=== PATIENT | male | born 1985 | race Hispanic/Latino ===

== ENCOUNTER 2020-06-18 12:54 | Inpatient (IN) | payer OTHER ==
[2020-06-18] MEDS ORDERED: ROCURONIUM 50 MG/5 ML INJ IV ONE (13:02)
[2020-06-18] MEDS ORDERED: KETAMINE 500 MG/5 ML VIAL MDV ONE (13:03)
[2020-06-18] MEDS ORDERED: SODIUM CHLORIDE 0.9% 1000 ML 1,000 ML IV ONE ×2 (13:11→15:48)
[2020-06-18] MEDS ORDERED: MINERAL OIL/PETROLATUM, WHITE OPHTH OINT 3.5 GM OU PRN (13:12)
[2020-06-18] MEDS ORDERED: LIP THERAPY VASELINE TP PRN (13:12)
--- NOTE | 2020-06-18 13:18 | Emergency Department Report ---
HPI - General Chief Complaint: Altered Mental Status Time Seen by Provider: 06/18/20 13:11 - HPI HPI: This is a 34-year-old male presents to the emergency department via EMS unresponsive with possible drug overdose. [place]. There was an acquaintance of the patient that was there initially when EMS arrived and said that the patient has history of IV heroin use. Patient is seen having some abrasions to his head and face and the acquaintance said that he had rolled down the hill. EMS says that there also many unidentified pills that were laying around but it is unknown whether the patient had taken these medications. At the time of my examination the patient is unresponsive to verbal, tactile or painful stimuli. He received 4 mg of Narcan in route with EMS and they say that the patient had 45 seconds of seizure-like activity shortly after the Narcan but otherwise did not become more arousable. ED Past Medical Hx - Past Medical History Hx Hypertension: No Hx CVA: No Hx Heart Attack/AMI: No Hx Congestive Heart Failure: No Hx Diabetes: No Hx Deep Vein Thrombosis: No Hx Pulmonary Embolism: No Hx GERD: No Hx Liver Disease: No Hx Renal Disease: No Hx Sickle Cell Disease: No Hx Arthritis: No Hx Headaches / Migraines: No Hx Seizures: No Hx Kidney Stones: No Hx Psychiatric Treatment: Yes ([place] - 10/2013) Hx Asthma: No Hx COPD: No Hx Tuberculosis: No Hx Dementia: No Hx HIV: No Additional medical history: Methamphetamine abuse - Surgical History Hx Coronary Stent: No Hx Open Heart Surgery: No Hx Pacemaker: No Hx Internal Defibrillator: No Hx Cholecystectomy: No Hx Appendectomy: No Hx Breast Surgery: No - Social History Smoking Status: Current Every Day Smoker - Medications Home Medications: Home Medications Medication Instructions Recorded Confirmed Last Taken Type Azithromycin [Zithromax TAB] 500 mg PO QDAY #3 tablet 10/07/14 Unknown Rx Benzonatate [Tessalon Perles] 100 mg PO Q8HR #30 capsule 10/07/14 Unknown Rx Ondansetron [Zofran Odt] 4 mg PO Q6H #7 tab.rapdis 10/07/14 Unknown Rx Prednisone [Prednisone 10 mg 10 mg PO .TAPER #1 tab.ds.pk 10/07/14 Unknown Rx (6-Day Pack, 21 Tabs)] Promethazine /Codeine 5 ml PO Q6H PRN #120 ml 10/07/14 Unknown Rx [Phenergan/Codeine 6.25-10 mg/5 ml] Ondansetron [Zofran Odt] 4 mg PO Q8H PRN #10 tab.rapdis 12/10/15 Unknown Rx ED Review of Systems ROS: Stated complaint: OVERDOSE/UNRESPONSIVE Other details as noted in HPI Comment: Unobtainable due to pts medical conditions Physical Exam - Physical Exam Vital Signs: Vital Signs 06/18/20 13:00 Pulse Rate 107 H Respiratory 12 Rate Blood Pressure 159/107 [Right] O2 Sat by Pulse 86 Oximetry Physical Exam: GENERAL: Patient is ill-appearing and unresponsive. HENT: Normocephalic. Patient has moist mucous membranes. EYES:Pupils equal reactive to light bilaterally. NECK: Supple. Trachea is midline. CHEST/LUNGS: Coarse breath sounds. Shallow snoring respirations. HEART/CARDIOVASCULAR: Regular. There is no tachycardia. There is no murmur. ABDOMEN: Abdomen is soft, nontender. Patient has normal bowel sounds. There is no abdominal distention. SKIN: Skin is warm and dry. There are some patches of abrasions to the right forehead and right upper cheek. NEURO: The patient is unresponsive to verbal, tactile or painful stimuli. No gag reflex. MUSCULOSKELETAL: There is no obvious deformity. ED Course Vital Signs 06/18/20 13:00 Pulse Rate 107 H Respiratory 12 Rate Blood Pressure 159/107 [Right] O2 Sat by Pulse 86 Oximetry - Reevaluation(s) Reevaluation #1: 06/18/20 17:04 Lab Results 06/18/20 06/18/20 06/18/20 Range/Units 13:38 13:38 14:36 WBC (4.5-11.0) K/mm3 RBC (3.65-5.03) M/mm3 Hgb (11.8-15.2) gm/dl Hct (35.5-45.6) % MCV (84-94) fl MCH (28-32) pg MCHC (32-34) % RDW (13.2-15.2) % Plt Count (140-440) K/mm3 Lymph % (Auto) (13.4-35.0) % [place] % (Auto) (0.0-7.3) % Eos % (Auto) (0.0-4.3) % Baso % (Auto) (0.0-1.8) % Lymph # (1.2-5.4) K/mm3 [place] # (0.0-0.8) K/mm3 Eos # (0.0-0.4) K/mm3 Baso # (0.0-0.1) K/mm3 Seg Neutrophils % (40.0-70.0) % Seg Neutrophils # (1.8-7.7) K/mm3 PT (12.2-14.9) Sec. INR (0.87-1.13) APTT (24.2-36.6) Sec. ABG pH (7.350-7.450) pH Units ABG pCO2 mm Hg ABG pO2 (80.0-90.0) mm Hg ABG HCO3 (20.0-26.0) mmol/L ABG O2 Saturation (95.0-99.0) % ABG O2 Content (0.0-44) ABG Base Excess (-2.0-3.0) mmol/L ABG Hemoglobin (14.0-18.0) gm/dl ABG Carboxyhemoglobin (0.0-5.0) % ABG Methemoglobin (0.0-1.5) % Oxyhemoglobin (95.0-99.0) % FiO2 % Sodium 138 (137-145) mmol/L Potassium 4.6 (3.6-5.0) mmol/L Chloride 99.5 (98-107) mmol/L Carbon Dioxide 16 L (22-30) mmol/L Anion Gap 27 mmol/L BUN 18 (9-20) mg/dL Creatinine 0.8 (0.8-1.3) mg/dL Estimated GFR > 60 ml/min BUN/Creatinine Ratio 23 % Glucose 114 H (75-100) mg/dL Lactic Acid (0.7-2.0) mmol/L Calcium 9.5 (8.4-10.2) mg/dL Total Bilirubin 0.40 (0.1-1.2) mg/dL AST 46 H (5-40) units/L ALT 72 H (7-56) units/L Alkaline Phosphatase 120 (35-129) units/L Ammonia (25-60) umol/L Total Creatine Kinase 255 H (55-170) units/L Troponin T 0.155 H* (0.00-0.029) ng/mL Total Protein 8.1 (6.3-8.2) g/dL Albumin 3.5 L (3.9-5) g/dL Albumin/Globulin Ratio 0.8 % Triglycerides 160 H (2-149) mg/dL Cholesterol 146 (50-199) mg/dL LDL Cholesterol Direct 87 (50-130) mg/dL HDL Cholesterol 49 (40-59) mg/dL Cholesterol/HDL Ratio 2.97 % TSH (0.270-4.200) mlU/mL Urine Color Yellow (Yellow) Urine Turbidity Clear (Clear) Urine pH 5.0 (5.0-7.0) Ur Specific [place] 1.024 (1.003-1.030) Urine Protein <15 mg/dl (Negative) mg/dL Urine Glucose (UA) Neg (Negative) mg/dL Urine Ketones Tr (Negative) mg/dL Urine Blood Sm (Negative) Urine Nitrite Neg (Negative) Urine Bilirubin Neg (Negative) Urine Urobilinogen 2.0 (<2.0) mg/dL Ur Leukocyte Esterase Neg (Negative) Urine WBC (Auto) 3.0 (0.0-6.0) /HPF Urine RBC (Auto) 4.0 (0.0-6.0) /HPF Urine Bacteria (Auto) 2+ (Negative) /HPF Salicylates (2.8-20.0) mg/dL Urine Opiates Screen Presumptive positive Urine Methadone Screen Presumptive negative Acetaminophen (10.0-30.0) ug/mL Ur Barbiturates Screen Presumptive negative Ur Phencyclidine Scrn Presumptive negative Ur Amphetamines Screen Presumptive positive U Benzodiazepines Scrn Presumptive negative Urine Cocaine Screen Presumptive positive U Marijuana (THC) Screen Presumptive positive Drugs of Abuse Note Disclamer Plasma/Serum Alcohol (0-0.07) % 06/18/20 06/18/20 06/18/20 Range/Units 14:36 14:36 14:36 WBC (4.5-11.0) K/mm3 RBC (3.65-5.03) M/mm3 Hgb (11.8-15.2) gm/dl Hct (35.5-45.6) % MCV (84-94) fl MCH (28-32) pg MCHC (32-34) % RDW (13.2-15.2) % Plt Count (140-440) K/mm3 Lymph % (Auto) (13.4-35.0) % [place] % (Auto) (0.0-7.3) % Eos % (Auto) (0.0-4.3) % Baso % (Auto) (0.0-1.8) % Lymph # (1.2-5.4) K/mm3 [place] # (0.0-0.8) K/mm3 Eos # (0.0-0.4) K/mm3 Baso # (0.0-0.1) K/mm3 Seg Neutrophils % (40.0-70.0) % Seg Neutrophils # (1.8-7.7) K/mm3 PT (12.2-14.9) Sec. INR (0.87-1.13) APTT (24.2-36.6) Sec. ABG pH (7.350-7.450) pH Units ABG pCO2 mm Hg ABG pO2 (80.0-90.0) mm Hg ABG HCO3 (20.0-26.0) mmol/L ABG O2 Saturation (95.0-99.0) % ABG O2 Content (0.0-44) ABG Base Excess (-2.0-3.0) mmol/L ABG Hemoglobin (14.0-18.0) gm/dl ABG Carboxyhemoglobin (0.0-5.0) % ABG Methemoglobin (0.0-1.5) % Oxyhemoglobin (95.0-99.0) % FiO2 % Sodium (137-145) mmol/L Potassium (3.6-5.0) mmol/L Chloride (98-107) mmol/L Carbon Dioxide (22-30) mmol/L Anion Gap mmol/L BUN (9-20) mg/dL Creatinine (0.8-1.3) mg/dL Estimated GFR ml/min BUN/Creatinine Ratio % Glucose (75-100) mg/dL Lactic Acid (0.7-2.0) mmol/L Calcium (8.4-10.2) mg/dL Total Bilirubin (0.1-1.2) mg/dL AST (5-40) units/L ALT (7-56) units/L Alkaline Phosphatase (35-129) units/L Ammonia (25-60) umol/L Total Creatine Kinase (55-170) units/L Troponin T (0.00-0.029) ng/mL Total Protein (6.3-8.2) g/dL Albumin (3.9-5) g/dL Albumin/Globulin Ratio % Triglycerides (2-149) mg/dL Cholesterol (50-199) mg/dL LDL Cholesterol Direct (50-130) mg/dL HDL Cholesterol (40-59) mg/dL Cholesterol/HDL Ratio % TSH 0.743 (0.270-4.200) mlU/mL Urine Color (Yellow) Urine Turbidity (Clear) Urine pH (5.0-7.0) Ur Specific [place] (1.003-1.030) Urine Protein (Negative) mg/dL Urine Glucose (UA) (Negative) mg/dL Urine Ketones (Negative) mg/dL Urine Blood (Negative) Urine Nitrite (Negative) Urine Bilirubin (Negative) Urine Urobilinogen (<2.0) mg/dL Ur Leukocyte Esterase (Negative) Urine WBC (Auto) (0.0-6.0) /HPF Urine RBC (Auto) (0.0-6.0) /HPF Urine Bacteria (Auto) (Negative) /HPF Salicylates < 0.3 L (2.8-20.0) mg/dL Urine Opiates Screen Urine Methadone Screen Acetaminophen < 5.0 L (10.0-30.0) ug/mL Ur Barbiturates Screen Ur Phencyclidine Scrn Ur Amphetamines Screen U Benzodiazepines Scrn Urine Cocaine Screen U Marijuana (THC) Screen Drugs of Abuse Note Plasma/Serum Alcohol (0-0.07) % 06/18/20 06/18/20 06/18/20 Range/Units 14:36 15:04 15:04 WBC 17.6 H (4.5-11.0) K/mm3 RBC 5.15 H (3.65-5.03) M/mm3 Hgb 14.2 (11.8-15.2) gm/dl Hct 43.0 (35.5-45.6) % MCV 84 (84-94) fl MCH 28 (28-32) pg MCHC 33 (32-34) % RDW 15.6 H (13.2-15.2) % Plt Count 427 (140-440) K/mm3 Lymph % (Auto) 9.3 L (13.4-35.0) % [place] % (Auto) 5.7 (0.0-7.3) % Eos % (Auto) 0.1 (0.0-4.3) % Baso % (Auto) 0.5 (0.0-1.8) % Lymph # 1.6 (1.2-5.4) K/mm3 [place] # 1.0 H (0.0-0.8) K/mm3 Eos # 0.0 (0.0-0.4) K/mm3 Baso # 0.1 (0.0-0.1) K/mm3 Seg Neutrophils % 84.4 H (40.0-70.0) % Seg Neutrophils # 14.9 H (1.8-7.7) K/mm3 PT 12.6 (12.2-14.9) Sec. INR 0.93 (0.87-1.13) APTT 32.9 (24.2-36.6) Sec. ABG pH (7.350-7.450) pH Units ABG pCO2 mm Hg ABG pO2 (80.0-90.0) mm Hg ABG HCO3 (20.0-26.0) mmol/L ABG O2 Saturation (95.0-99.0) % ABG O2 Content (0.0-44) ABG Base Excess (-2.0-3.0) mmol/L ABG Hemoglobin (14.0-18.0) gm/dl ABG Carboxyhemoglobin (0.0-5.0) % ABG Methemoglobin (0.0-1.5) % Oxyhemoglobin (95.0-99.0) % FiO2 % Sodium (137-145) mmol/L Potassium (3.6-5.0) mmol/L Chloride (98-107) mmol/L Carbon Dioxide (22-30) mmol/L Anion Gap mmol/L BUN (9-20) mg/dL Creatinine (0.8-1.3) mg/dL Estimated GFR ml/min BUN/Creatinine Ratio % Glucose (75-100) mg/dL Lactic Acid (0.7-2.0) mmol/L Calcium (8.4-10.2) mg/dL Total Bilirubin (0.1-1.2) mg/dL AST (5-40) units/L ALT (7-56) units/L Alkaline Phosphatase (35-129) units/L Ammonia (25-60) umol/L Total Creatine Kinase (55-170) units/L Troponin T (0.00-0.029) ng/mL Total Protein (6.3-8.2) g/dL Albumin (3.9-5) g/dL Albumin/Globulin Ratio % Triglycerides (2-149) mg/dL Cholesterol (50-199) mg/dL LDL Cholesterol Direct (50-130) mg/dL HDL Cholesterol (40-59) mg/dL Cholesterol/HDL Ratio % TSH (0.270-4.200) mlU/mL Urine Color (Yellow) Urine Turbidity (Clear) Urine pH (5.0-7.0) Ur Specific [place] (1.003-1.030) Urine Protein (Negative) mg/dL Urine Glucose (UA) (Negative) mg/dL Urine Ketones (Negative) mg/dL Urine Blood (Negative) Urine Nitrite (Negative) Urine Bilirubin (Negative) Urine Urobilinogen (<2.0) mg/dL Ur Leukocyte Esterase (Negative) Urine WBC (Auto) (0.0-6.0) /HPF Urine RBC (Auto) (0.0-6.0) /HPF Urine Bacteria (Auto) (Negative) /HPF Salicylates (2.8-20.0) mg/dL Urine Opiates Screen Urine Methadone Screen Acetaminophen (10.0-30.0) ug/mL Ur Barbiturates Screen Ur Phencyclidine Scrn Ur Amphetamines Screen U Benzodiazepines Scrn Urine Cocaine Screen U Marijuana (THC) Screen Drugs of Abuse Note Plasma/Serum Alcohol < 0.01 (0-0.07) % 06/18/20 06/18/20 06/18/20 Range/Units 15:04 15:04 16:20 WBC (4.5-11.0) K/mm3 RBC (3.65-5.03) M/mm3 Hgb (11.8-15.2) gm/dl Hct (35.5-45.6) % MCV (84-94) fl MCH (28-32) pg MCHC (32-34) % RDW (13.2-15.2) % Plt Count (140-440) K/mm3 Lymph % (Auto) (13.4-35.0) % [place] % (Auto) (0.0-7.3) % Eos % (Auto) (0.0-4.3) % Baso % (Auto) (0.0-1.8) % Lymph # (1.2-5.4) K/mm3 [place] # (0.0-0.8) K/mm3 Eos # (0.0-0.4) K/mm3 Baso # (0.0-0.1) K/mm3 Seg Neutrophils % (40.0-70.0) % Seg Neutrophils # (1.8-7.7) K/mm3 PT (12.2-14.9) Sec. INR (0.87-1.13) APTT (24.2-36.6) Sec. ABG pH 7.383 (7.350-7.450) pH Units ABG pCO2 44.1 mm Hg ABG pO2 200.0 H (80.0-90.0) mm Hg ABG HCO3 25.7 (20.0-26.0) mmol/L ABG O2 Saturation 99.2 H (95.0-99.0) % ABG O2 Content 19.4 (0.0-44) ABG Base Excess 0.3 (-2.0-3.0) mmol/L ABG Hemoglobin 13.9 L (14.0-18.0) gm/dl ABG Carboxyhemoglobin 1.1 (0.0-5.0) % ABG Methemoglobin 0.5 (0.0-1.5) % Oxyhemoglobin 97.6 (95.0-99.0) % FiO2 100 % Sodium (137-145) mmol/L Potassium (3.6-5.0) mmol/L Chloride (98-107) mmol/L Carbon Dioxide (22-30) mmol/L Anion Gap mmol/L BUN (9-20) mg/dL Creatinine (0.8-1.3) mg/dL Estimated GFR ml/min BUN/Creatinine Ratio % Glucose (75-100) mg/dL Lactic Acid 4.40 H* (0.7-2.0) mmol/L Calcium (8.4-10.2) mg/dL Total Bilirubin (0.1-1.2) mg/dL AST (5-40) units/L ALT (7-56) units/L Alkaline Phosphatase (35-129) units/L Ammonia 64.0 H (25-60) umol/L Total Creatine Kinase (55-170) units/L Troponin T (0.00-0.029) ng/mL Total Protein (6.3-8.2) g/dL Albumin (3.9-5) g/dL Albumin/Globulin Ratio % Triglycerides (2-149) mg/dL Cholesterol (50-199) mg/dL LDL Cholesterol Direct (50-130) mg/dL HDL Cholesterol (40-59) mg/dL Cholesterol/HDL Ratio % TSH (0.270-4.200) mlU/mL Urine Color (Yellow) Urine Turbidity (Clear) Urine pH (5.0-7.0) Ur Specific [place] (1.003-1.030) Urine Protein (Negative) mg/dL Urine Glucose (UA) (Negative) mg/dL Urine Ketones (Negative) mg/dL Urine Blood (Negative) Urine Nitrite (Negative) Urine Bilirubin (Negative) Urine Urobilinogen (<2.0) mg/dL Ur Leukocyte Esterase (Negative) Urine WBC (Auto) (0.0-6.0) /HPF Urine RBC (Auto) (0.0-6.0) /HPF Urine Bacteria (Auto) (Negative) /HPF Salicylates (2.8-20.0) mg/dL Urine Opiates Screen Urine Methadone Screen Acetaminophen (10.0-30.0) ug/mL Ur Barbiturates Screen Ur Phencyclidine Scrn Ur Amphetamines Screen U Benzodiazepines Scrn Urine Cocaine Screen U Marijuana (THC) Screen Drugs of Abuse Note Plasma/Serum Alcohol (0-0.07) % - Consultations Consultation #1: 06/18/20 16:44 I spoke with the flight engineer instructor on-call for [facility] cardiology, Dr. Valderrama, regarding the elevated troponin with polysubstance abuse. He agrees with the plan for heparin and recommends aspirin and a statin. He recommends to avoid any beta-dorian secondary to the cocaine use. - ABG Interpretation Ph: 7.383 PCO2: 44 PO2: 200 Bicarbonate: 25 Interpretation: normal - Intubation Time Out Performed: Yes Sedative: Ketamine Mg Given: 50 Paralytic: Rocuronium Mg Given: 50 Laryngoscope: other ([place] scope) Size: 4 ET Tube Size: 7.5 Tube Secured Depth (cm): 24 Tube Secured Location: teeth Tube Placement Confirmation: visualized tube passing t, equal breath sounds bilat, no breath sounds over epi, confirmation by capnometr Patient Tolerated Procedure: well Intubation Complications: none ED Medical Decision Making - Lab Data Result diagrams: 06/18/20 15:04 06/18/20 14:36 - EKG Data -: EKG Interpreted by Me EKG shows normal: sinus rhythm, axis, intervals, QRS complexes (Q waves to the septal leads), ST-T waves Rate: tachycardia (109 bpm) - EKG Data When compared to previous EKG there are: previous EKG unavailable Interpretation: other (Sinus tachycardia at 109 bpm, normal axis, normal intervals, Q waves to the septal leads) - Radiology Data Radiology results: report reviewed, image reviewed interpreted by me: Chest x-ray does not show any acute process. There are no pleural effusions, obvious pneumonia and there is no pneumothorax. No significant cardiomegaly. Endotracheal tube is in appropriate position. CT head/brain wo con INDICATION: Altered mental status. TECHNIQUE: Routine CT head without contrast. All CT scans at this location are performed using CT dose reduction for ALARA by means of automated exposure control. COMPARISON: None. FINDINGS: BRAIN / INTRACRANIAL CONTENTS: No acute hemorrhage, mass effect, midline shift, or hydrocephalus. No appreciable acute large territorial or lacunar infarct. No chronic infarct or focal atrophy. Normal brain volume and ventricular/sulcal size for age. ORBITS: No significant abnormality of visualized orbits. SINUSES / MASTOIDS: There is a small amount of fluid in left maxillary sinus with a possible left anterior maxillary sinus wall fracture. ADDITIONAL FINDINGS: None. IMPRESSION: 1. No acute intracranial abnormality. 2. Possible left maxillary sinus fracture. Further evaluation with maxillofacial CT recommended. CT CERVICAL SPINE WITHOUT CONTRAST INDICATION: trauma, unresponsive. TECHNIQUE: Axial CT images of the spine were obtained. Sagittal and coronal reformatted images were produced. All CT scans at this location are performed using CT dose reduction for ALARA by means of automated exposure control. COMPARISON: None available. FINDINGS: ACUTE FRACTURE(S) OR SUBLUXATION: None. SPINAL DEGENERATIVE CHANGES: There is moderate degenerative disc disease at C6-7 with disc height loss and reactive endplate osteophyte formation resulting in mild bilateral neural foraminal narrowing at that level. PARASPINAL SOFT TISSUES: No soft tissue swelling or other acute abnormalities. ADDITIONAL FINDINGS: No significant additional findings. IMPRESSION: 1. No acute fracture or subluxation in the spine in neutral position. - Medical Decision Making This [place] with obvious signs of illicit drug use. No response to the Narcan given by EMS other than a questionable 45-second seizure, but there is no seizure-like activity upon arrival to the emergency department. Patient does have snoring bradypneic respirations and no gag reflex. For this reason patient was intubated. Chest x-ray does not show any pneumonia, pleural effusions, pneumothorax, or any other acute process. CT scan of the head without contrast did not show any bleed, ischemia, skull fracture, but there was a questionable read of a maxillary sinus fracture. CT of the cervical spine did not show any fracture, subluxation, or any acute process. Patient's labs shows a lactic acidosis, leukocytosis of 17,000, elevated troponin of 0.15 and a urine drug screen positive for opiates, methamphetamines, cocaine. Cardiology contacted and consulted and the patient was started on a heparin drip. He will be admitted to the ICU for further evaluation and treatment was accepted for admission by the hospitalist, Dr. Francisco. Critical Care Time: Yes Critical care time in (mins) excluding proc time.: 45 Critical care attestation.: If time is entered above; I have spent that time in minutes in the direct care of this critically ill patient, excluding procedure time. Critical care time was spent on this patient in doing his initial evaluation, multiple re- evaluations, ordering and interpretation of labs and imaging, discussion with the cardiology and hospitalist services. This does not include the time spent doing the intubation. Critical Care Time: 45 minutes ED Disposition Clinical Impression: Unresponsive state, Polysubstance abuse, Elevated troponin, Lactic acidosis Acute respiratory failure Qualifiers: Respiratory failure complication: unspecified whether with hypoxia or hypercapnia Qualified Code(s): J96.00 - Acute respiratory failure, unspecified whether with hypoxia or hypercapnia Disposition: OP ADMIT IP TO THIS HOSP Is pt being admited?: Yes Condition: Serious Time of Disposition: 16:41
--- NOTE | 2020-06-18 13:53 | XRay Report ---
CHEST 1 VIEW INDICATION / CLINICAL INFORMATION: ETT placement. COMPARISON: None available. FINDINGS: SUPPORT DEVICES: Endotracheal tube HEART / MEDIASTINUM: No significant abnormality. LUNGS / PLEURA: No significant pulmonary or pleural abnormality. No pneumothorax. ADDITIONAL FINDINGS: No significant additional findings. IMPRESSION: Endotracheal tube is present and appears to be in good position. No acute pulmonary or pleural abnorm ality Signer Name: Gunnar Meier MD FACTal Signed: 06/18/2020 1:49 PM Workstation Name: [email or web address]
[2020-06-18 13:57] LABS: Amphetamine Screen,Urine PRESUMPTIVE POSITIVE; Benzodiazepines Screen,Urine PRESUMPTIVE NEGATIVE; Cannabinoid Screen,Urine PRESUMPTIVE POSITIVE; Cocaine Screen,Urine PRESUMPTIVE POSITIVE; Methadone Screen,Urine PRESUMPTIVE NEGATIVE; Opiate Screen,Urine PRESUMPTIVE POSITIVE
[2020-06-18 14:00] LABS: Bacteria,Urine 2+ /HPF (Negative); Bilirubin,Urine NEG (Negative); Blood,Urine SM (Negative); Color,Urine Yellow (Yellow); Protein,Urine <15 mg/dL mg/dL (Negative)
[2020-06-18 15:30] LABS: Basophils # (Auto) 0.1 K/mm3 (0.0-0.1); Basophils % (Auto) 0.5 % (0.0-1.8); Eosinophils % (Auto) 0.1 % (0.0-4.3); Hemoglobin 14.2 gm/dl (11.8-15.2); Lymphocytes # (Auto) 1.6 K/mm3 (1.2-5.4); Lymphocytes % (Auto) 9.3 % (13.4-35.0); Mean Corpuscular HGB Conc 33 % (32-34); Mean Corpuscular Volume 84 fl (84-94); Monocytes % (Auto) 5.7 % (0.0-7.3); Platelet Count 427 K/mm3 (140-440); Red Blood Count 5.15 M/mm3 (3.65-5.03); Red Cell Distribution Width 15.6 % (13.2-15.2)
[2020-06-18 15:31] LABS: Alanine Aminotransferase 72 units/L (7-56); Albumin 3.5 g/dL (3.9-5); BUN/Creatinine Ratio 23; Blood Urea Nitrogen 18 mg/dL (9-20); Calcium 9.5 mg/dL (8.4-10.2); Hemolysis Index 62
[2020-06-18 15:40] LABS: INR 0.93 (0.87-1.13)
[2020-06-18 15:41] LABS: Partial Thromboplastin Time 32.9 Sec. (24.2-36.6)
[2020-06-18 15:50] LABS: Chol/HDL Ratio 2.97 %; HDL Cholesterol 49 mg/dL (40-59); LDL Cholesterol,Direct 87 mg/dL (50-130)
--- NOTE | 2020-06-18 16:31 | Cat Scan Report ---
CT CERVICAL SPINE WITHOUT CONTRAST INDICATION: trauma, unresponsive. TECHNIQUE: Axial CT images of the spine were obtained. Sagittal and coronal reformatted images were produced. Al l CT scans at this location are performed using CT dose reduction for ALARA by means of automated exp osure control. COMPARISON: None available. FINDINGS: ACUTE FRACTURE(S) OR SUBLUXATION: None. SPINAL DEGENERATIVE CHANGES: There is moderate degenerative disc disease at C6-7 with disc height los s and reactive endplate osteophyte formation resulting in mild bilateral neural foraminal narrowing a t that level. PARASPINAL SOFT TISSUES: No soft tissue swelling or other acute abnormalities. ADDITIONAL FINDINGS: No significant additional findings. IMPRESSION: 1. No acute fracture or subluxation in the spine in neutral position. Signer Name: Brenden Rashid MD Signed: 06/18/2020 4:27 PM Workstation Name: [id number]
--- NOTE | 2020-06-18 16:35 | Cat Scan Report ---
CT head/brain wo con INDICATION: Altered mental status. TECHNIQUE: Routine CT head without contrast. All CT scans at this location are performed using CT dos e reduction for ALARA by means of automated exposure control. COMPARISON: None. FINDINGS: BRAIN / INTRACRANIAL CONTENTS: No acute hemorrhage, mass effect, midline shift, or hydrocephalus. No appreciable acute large territorial or lacunar infarct. No chronic infarct or focal atrophy. Normal b rain volume and ventricular/sulcal size for age. ORBITS: No significant abnormality of visualized orbits. SINUSES / MASTOIDS: There is a small amount of fluid in left maxillary sinus with a possible left ant erior maxillary sinus wall fracture. ADDITIONAL FINDINGS: None. IMPRESSION: 1. No acute intracranial abnormality. 2. Possible left maxillary sinus fracture. Further evaluation with maxillofacial CT recommended. Signer Name: Brenden Rashid MD Signed: 06/18/2020 4:31 PM Workstation Name: [id number]
[2020-06-18] MEDS ORDERED: ASPIRIN 300 MG RECT SUPP PR ONE (16:43)
[2020-06-18] MEDS ORDERED: HEPARIN 10,000 UNITS/10 ML VIAL IV ONE (16:43)
[2020-06-18] MEDS ORDERED: IBUPROFEN 600 MG TAB PO PRN (16:46)
[2020-06-18] MEDS ORDERED: ALBUTEROL 2.5 MG/3 ML NEBU IH PRN (16:46)
[2020-06-18] MEDS ORDERED: NALOXONE 0.4 MG/1 ML INJ IV PRN (16:49)
--- NOTE | 2020-06-18 16:51 | History and Physical Report ---
History of Present Illness Date of examination: 06/18/20 Date of admission: 06/18/20 Chief complaint: Drug overdose requiring mechanical ventilation History of present illness: Patient is a 34-year-old male with past medical history of drug use prior history in 2013 which was rescinded at the time shortly after presents to the ED via EMS after found unresponsive along tremor tracks and pulmonary studies showing multiple drugs in his system including PCP, cocaine, THC, opioids. According to information or review of records patient had an acquaintance who states that the patient uses drugs. EMS attempted to administer Narcan 4 mg in route and noted about a 45 seconds seizure-like activity which was shortly after the Narcan was given and resolved. Otherwise patient was unarousable and intubated for airway protection. There were also many unidentified pills laying around the patient unknown if the patient had taken those medications. He is currently intubated at the time of my evaluation imaging studies are unremarkable except for CT head which shows a possible left anterior maxillary sinus wall fracture. Laboratory studies shows mild elevated troponin and leukocytosis. Past History Past Medical History: other (Unable to obtain except for known history of drug abuse) Past Surgical History: Other (Unable to obtain due to patient's medical condition) Social history: smoking, prescription drug abuse, IV drug use Family history: no significant family history Medications and Allergies Allergies Allergy/AdvReac Type Severity Reaction Status Date / Time No Known Allergies Allergy Verified 06/18/20 13:08 Home Medications Medication Instructions Recorded Confirmed Last Taken Type Azithromycin [Zithromax TAB] 500 mg PO QDAY #3 tablet 10/07/14 Unknown Rx Benzonatate [Tessalon Perles] 100 mg PO Q8HR #30 capsule 10/07/14 Unknown Rx Ondansetron [Zofran Odt] 4 mg PO Q6H #7 tab.rapdis 10/07/14 Unknown Rx Prednisone [Prednisone 10 mg 10 mg PO .TAPER #1 tab.ds.pk 10/07/14 Unknown Rx (6-Day Pack, 21 Tabs)] Promethazine /Codeine 5 ml PO Q6H PRN #120 ml 10/07/14 Unknown Rx [Phenergan/Codeine 6.25-10 mg/5 ml] Ondansetron [Zofran Odt] 4 mg PO Q8H PRN #10 tab.rapdis 12/10/15 Unknown Rx Active Meds: Active Medications Hydrophilic Ointment (Vaseline Lip Therapy) 1 applic TP Q2HR PRN PRN Reason: Dry Lips Propofol (Diprivan 10 Mg/Ml) 1,000 mg in 100 mls @ 1.68 mls/hr IV TITR LILIAN; Protocol Last Admin: 06/18/20 13:43 Dose: 5 mcg/kg/min, 1.68 mls/hr Documented by: Heparin Sodium/Sodium Chloride (Heparin/ 0.45% Nacl-25,000 Unit/500 Ml) 25,000 unit in 500 mls @ 20 mls/hr IV TITRATE LILIAN; Protocol Multi-Ingred Cream/Lotion/Oil/Oint (Artificial Tears Ophth Oint) 1 applic OU Q4HR PRN PRN Reason: Dry Eye(s) Review of Systems ROS unobtainable: due to endotracheal tube Exam - Physical Exam Narrative exam: VITAL SIGNS: Reviewed. GENERAL: The patient appears normally developed, otherwise obtunded nonresponsive multiple abrasions NG tube to the right measures vital signs as documented. HEAD: No signs of head trauma. EYES: Pupils are equal. EARS: Sedated MOUTH: ET tube in NECK: No adenopathy, no JVD. CHEST: Chest with transmitted bronchovesicular sounds with no wheezing or rales CARDIAC: Regular rate and rhythm. S1 and S2, without murmurs, gallops, or rubs. VASCULAR: No Edema. Peripheral pulses normal and equal in all extremities. ABDOMEN: Soft, non tender and non distended. No rebound or guarding, and no masses palpated. Bowel Sounds normal. MUSCULOSKELETAL: Good range of motion of all major joints. Extremities without clubbing, cyanosis or edema. NEUROLOGIC EXAM: Alert and oriented x 3 No focal sensory or strength defic its. Speech normal. Follows commands. PSYCHIATRIC: Mood normal. SKIN: Multiple lesions and abrasion detail exam as documented in skin assessment - Constitutional Vitals: Temp Pulse Resp BP Pulse Ox 98 F 71 23 144/107 99 06/18/20 13:48 06/18/20 15:00 06/18/20 15:00 06/18/20 15:00 06/18/20 15:00 HEART Score - HEART Score Troponin: Troponin T 0.155 ng/mL (0.00-0.029) H* 06/18/20 14:36 Results - Labs CBC & Chem 7: 06/18/20 15:04 06/18/20 14:36 Labs: Laboratory Last Values WBC 17.6 K/mm3 (4.5-11.0) H 06/18/20 15:04 RBC 5.15 M/mm3 (3.65-5.03) H 06/18/20 15:04 Hgb 14.2 gm/dl (11.8-15.2) 06/18/20 15:04 Hct 43.0 % (35.5-45.6) 06/18/20 15:04 MCV 84 fl (84-94) 06/18/20 15:04 MCH 28 pg (28-32) 06/18/20 15:04 MCHC 33 % (32-34) 06/18/20 15:04 RDW 15.6 % (13.2-15.2) H 06/18/20 15:04 Plt Count 427 K/mm3 (140-440) 06/18/20 15:04 Lymph % (Auto) 9.3 % (13.4-35.0) L 06/18/20 15:04 [place] % (Auto) 5.7 % (0.0-7.3) 06/18/20 15:04 Eos % (Auto) 0.1 % (0.0-4.3) 06/18/20 15:04 Baso % (Auto) 0.5 % (0.0-1.8) 06/18/20 15:04 Lymph # 1.6 K/mm3 (1.2-5.4) 06/18/20 15:04 [place] # 1.0 K/mm3 (0.0-0.8) H 06/18/20 15:04 Eos # 0.0 K/mm3 (0.0-0.4) 06/18/20 15:04 Baso # 0.1 K/mm3 (0.0-0.1) 06/18/20 15:04 Seg Neutrophils % 84.4 % (40.0-70.0) H 06/18/20 15:04 Seg Neutrophils # 14.9 K/mm3 (1.8-7.7) H 06/18/20 15:04 PT 12.6 Sec. (12.2-14.9) 06/18/20 15:04 INR 0.93 (0.87-1.13) 06/18/20 15:04 APTT 32.9 Sec. (24.2-36.6) 06/18/20 15:04 Sodium 138 mmol/L (137-145) 06/18/20 14:36 Potassium 4.6 mmol/L (3.6-5.0) 06/18/20 14:36 Chloride 99.5 mmol/L (98-107) 06/18/20 14:36 Carbon Dioxide 16 mmol/L (22-30) L 06/18/20 14:36 Anion Gap 27 mmol/L 06/18/20 14:36 BUN 18 mg/dL (9-20) 06/18/20 14:36 Creatinine 0.8 mg/dL (0.8-1.3) 06/18/20 14:36 Estimated GFR > 60 ml/min 06/18/20 14:36 BUN/Creatinine Ratio 23 % 06/18/20 14:36 Glucose 114 mg/dL (75-100) H 06/18/20 14:36 Lactic Acid 4.40 mmol/L (0.7-2.0) H* 06/18/20 15:04 Calcium 9.5 mg/dL (8.4-10.2) 06/18/20 14:36 Total Bilirubin 0.40 mg/dL (0.1-1.2) 06/18/20 14:36 AST 46 units/L (5-40) H 06/18/20 14:36 ALT 72 units/L (7-56) H 06/18/20 14:36 Alkaline Phosphatase 120 units/L (35-129) 06/18/20 14:36 Ammonia 64.0 umol/L (25-60) H 06/18/20 15:04 Total Creatine Kinase 255 units/L (55-170) H 06/18/20 14:36 Troponin T 0.155 ng/mL (0.00-0.029) H* 06/18/20 14:36 Total Protein 8.1 g/dL (6.3-8.2) 06/18/20 14:36 Albumin 3.5 g/dL (3.9-5) L 06/18/20 14:36 Albumin/Globulin Ratio 0.8 % 06/18/20 14:36 Triglycerides 160 mg/dL (2-149) H 06/18/20 14:36 Cholesterol 146 mg/dL (50-199) 06/18/20 14:36 LDL Cholesterol Direct 87 mg/dL (50-130) 06/18/20 14:36 HDL Cholesterol 49 mg/dL (40-59) 06/18/20 14:36 Cholesterol/HDL Ratio 2.97 % 06/18/20 14:36 TSH 0.743 mlU/mL (0.270-4.200) 06/18/20 14:36 Urine Color Yellow (Yellow) 06/18/20 13:38 Urine Turbidity Clear (Clear) 06/18/20 13:38 Urine pH 5.0 (5.0-7.0) 06/18/20 13:38 Ur Specific [place] 1.024 (1.003-1.030) 06/18/20 13:38 Urine Protein <15 mg/dl mg/dL (Negative) 06/18/20 13:38 Urine Glucose (UA) Neg mg/dL (Negative) 06/18/20 13:38 Urine Ketones Tr mg/dL (Negative) 06/18/20 13:38 Urine Blood Sm (Negative) 06/18/20 13:38 Urine Nitrite Neg (Negative) 06/18/20 13:38 Urine Bilirubin Neg (Negative) 06/18/20 13:38 Urine Urobilinogen 2.0 mg/dL (<2.0) 06/18/20 13:38 Ur Leukocyte Esterase Neg (Negative) 06/18/20 13:38 Urine WBC (Auto) 3.0 /HPF (0.0-6.0) 06/18/20 13:38 Urine RBC (Auto) 4.0 /HPF (0.0-6.0) 06/18/20 13:38 Urine Bacteria (Auto) 2+ /HPF (Negative) 06/18/20 13:38 Salicylates < 0.3 mg/dL (2.8-20.0) L 06/18/20 14:36 Urine Opiates Screen Presumptive positive 06/18/20 13:38 Urine Methadone Screen Presumptive negative 06/18/20 13:38 Acetaminophen < 5.0 ug/mL (10.0-30.0) L 06/18/20 14:36 Ur Barbiturates Screen Presumptive negative 06/18/20 13:38 Ur Phencyclidine Scrn Presumptive negative 06/18/20 13:38 Ur Amphetamines Screen Presumptive positive 06/18/20 13:38 U Benzodiazepines Scrn Presumptive negative 06/18/20 13:38 Urine Cocaine Screen Presumptive positive 06/18/20 13:38 U Marijuana (THC) Screen Presumptive positive 06/18/20 13:38 Drugs of Abuse Note Disclamer 06/18/20 13:38 Plasma/Serum Alcohol < 0.01 % (0-0.07) 06/18/20 14:36 Microbiology: Microbiology 06/18/20 15:07 Peripheral/Venous Blood Culture - Preliminary Culture in Progress Assessment and Plan Assessment and plan: Patient is a 34-year-old male with past medical history of drug use prior history in 2013 of 1013 which was rescinded at the time shortly after presents to the ED via EMS after found unresponsive along tremor tracks and pulmonary studies showing multiple drugs in his system including PCP, cocaine, THC, opioids. According to information or review of records patient had an acquaintance who states that the patient uses drugs. EMS attempted to administer Narcan 4 mg in route and noted about a 45 seconds seizure-like activity which was shortly after the Narcan was given and resolved. Otherwise patient was unarousable and intubated for airway protection. There were also many unidentified pills laying around the patient unknown if the patient had taken those medications. He is currently intubated at the time of my evaluation imaging studies are unremarkable except for CT head which shows a possible left anterior maxillary sinus wall fracture. Laboratory studies shows mild elevated troponin and leukocytosis. Chest x-ray; IMPRESSION: Endotracheal tube is present and appears to be in good position. No acute pulmonary or pleural abnormality Unresponsive state, Polysubstance abuse, Elevated troponin, Lactic acidosis CT cervical spine: IMPRESSION: 1. No acute fracture or subluxation in the spine in neutral position. CT head: IMPRESSION: 1. No acute intracranial abnormality. 2. Possible left maxillary sinus fracture. Further evaluation with maxillofacial CT recommended. Acute respiratory failure secondary to drug overdose Polysubstance abuse with sedation Acute metabolic encephalopathy secondary to substance abuse Leukocytosis rule out aspiration pneumonia Presumed seizure Elevated troponin possible and NSTEMI secondary to polysubstance abuse Systemic inflammatory response syndrome No evidence of sepsis Lactic acidosis Plan Admit to ICU Aspiration precautions VAP [place] [employer] consult Cardiology consult ER already discussed with them Levaquin empiric IV although this may be discontinued 24 hours Fluid resuscitation Reevaluation 1 more awake Seizure precautions DVT and GI prophylaxis The high probability of a clinically significant, sudden or life threatening deterioration of the [CHIEF DESIGN BRANCH, PULMONARY, CARDIAC] system(s) required my full and direct attention, intervention and personal management. The aggregate critical care time was [90] minutes. This time is in addition to time spent performing reported procedures but includes the following: [X] Data Review and interpretation [X] Patient assessment and monitoring of vital signs [X] Documentation [X] Medication orders and management Advance Directives: Yes Plan of care discussed with patient/family: Yes
[2020-06-18 16:54] LABS: ABG Base Excess 0.3 mmol/L (-2.0-3.0); ABG HCO3 25.7 mmol/L (20.0-26.0); ABG Methemoglobin 0.5 % (0.0-1.5); ABG Oxygen Saturation 99.2 % (95.0-99.0); ABG PCO2 44.1 mm Hg; ABG PH 7.383 pH Units (7.350-7.450)
[2020-06-18] MEDS ORDERED: SODIUM CHLORIDE 0.9% 1000 ML 1,000 ML IV SCH (17:00)
[2020-06-18] MEDS ORDERED: fentaNYL 100 MCG/2 ML INJ ONE (21:20)
[2020-06-18] MEDS: fentaNYL 100 MCG/2 ML INJ IV PRN (21:30)
[2020-06-18] MEDS ORDERED: fentaNYL DRIP Premix 2,000 MCG/100 ML BAG IV ONE (21:34)
[2020-06-18] MEDS: fentaNYL DRIP Premix 2,000 MCG/100 ML BAG IV SCH (21:45)
[2020-06-18 21:55] LABS: Creatine Kinase MB 17.6 ng/mL (0.0-4.0)
[2020-06-18] MEDS ORDERED: MIDAZOLAM 2 MG/2 ML INJ IV PRN (22:02)
[2020-06-18] MEDS ORDERED: SODIUM CHLORIDE 0.9% 1000 ML 1,000 ML ONE (22:48)
[2020-06-18] MEDS ORDERED: HEPARIN 10,000 UNITS/10 ML VIAL ONE (22:49)
[2020-06-18] MEDS ORDERED: MIDAZOLAM 100 MG in SODIUM CHLORIDE 0.9% 80 ML IV SCH (23:00)
[2020-06-18] MEDS: SENNOSIDES 8.6 MG TAB PO SCH (23:19)
[2020-06-18] MEDS: IPRATROPIUM/ALBUTEROL SULFATE 3 ML AMPUL.NEB IH SCH (23:20)
[2020-06-18] MEDS ORDERED: HEPARIN/ 0.45% NACL DRIP 25,000 UNIT/500 ML BAG ONE (23:26)
[2020-06-18] MEDS: HEPARIN/ 0.45% NACL DRIP 25,000 UNIT/500 ML BAG IV SCH (23:45)
[2020-06-19] MEDS ORDERED: fentaNYL 100 MCG/2 ML INJ ONE (00:18)
[2020-06-19] MEDS: fentaNYL 100 MCG/2 ML INJ IV PRN (00:22)
[2020-06-19 01:43] LABS: Creatine Kinase MB 16.6 ng/mL (0.0-4.0)
[2020-06-19] MEDS: fentaNYL DRIP Premix 2,000 MCG/100 ML BAG IV SCH (02:39)
[2020-06-19] MEDS: IPRATROPIUM/ALBUTEROL SULFATE 3 ML AMPUL.NEB IH SCH ×3 (03:11→15:50)
--- NOTE | 2020-06-19 03:19 | XRay Report ---
CHEST 1 VIEW INDICATION: follow up respiratory failure. COMPARISON: Previous day. FINDINGS: Support devices: Unchanged. Heart: Within normal limits. Lungs/Pleura: No acute air space or interstitial disease. Additional findings: None. IMPRESSION: Lines and tubes in satisfactory position. Signer Name: Danny Ch MD Signed: 06/19/2020 3:15 AM Workstation Name: [id number]
[2020-06-19 03:26] LABS: ABG Base Excess 1.5 mmol/L (-2.0-3.0); ABG HCO3 27.3 mmol/L (20.0-26.0); ABG Methemoglobin 0.5 % (0.0-1.5); ABG Oxygen Saturation 98.2 % (95.0-99.0); ABG PCO2 47.9 mm Hg; ABG PH 7.373 pH Units (7.350-7.450); ABG PO2 119.8 mm Hg (80.0-90.0)
[2020-06-19 06:01] LABS: Hematocrit 35.4 % (35.5-45.6); Hemoglobin 11.8 gm/dl (11.8-15.2); Mean Corpuscular HGB Conc 33 % (32-34); Mean Corpuscular Volume 83 fl (84-94); Platelet Count 340 K/mm3 (140-440); Red Blood Count 4.25 M/mm3 (3.65-5.03); Red Cell Distribution Width 15.5 % (13.2-15.2)
[2020-06-19 06:24] LABS: Alanine Aminotransferase 46 units/L (7-56); Albumin 2.9 g/dL (3.9-5); Blood Urea Nitrogen 13 mg/dL (9-20); Calcium 8.3 mg/dL (8.4-10.2); Hemolysis Index 5
[2020-06-19 06:27] LABS: BUN/Creatinine Ratio 19
[2020-06-19] MEDS: LORazepam 2 MG/ML VIAL IV PRN ×2 (07:35→11:49)
--- NOTE | 2020-06-19 08:50 | Consultation ---
History of Present Illness Consult date: 06/19/20 Requesting physician: DANIEL SANDERS Consult reason: other (NSTEMI) History of present illness: Pt is a 34 y.o. male, previously unknown to our practice, who was found unresponsive and arrived via EMS following drug overdose. Tox screen pos for multiple substances, including PCP, cocaine, and opioids. Pt was intubated by EMS. Majority of HPI thus obtained from pts chart. Cardiology has been consulted for eval of elevated troponin levels 0.155 -> 0.196 -> 0.246. ECG reveals no acute ischemic changes. CXR unremarkable. No prior cardiac workup available for review. Of note, pt was extubated after exam this AM. No reports of chest pain. No acute events noted. Past History Social history: smoking, prescription drug abuse, IV drug use Medications and Allergies Allergies Allergy/AdvReac Type Severity Reaction Status Date / Time No Known Allergies Allergy Verified 06/18/20 13:08 Home Medications Medication Instructions Recorded Confirmed Last Taken Type Azithromycin [Zithromax TAB] 500 mg PO QDAY #3 tablet 10/07/14 Unknown Rx Benzonatate [Tessalon Perles] 100 mg PO Q8HR #30 capsule 10/07/14 Unknown Rx Ondansetron [Zofran Odt] 4 mg PO Q6H #7 tab.rapdis 10/07/14 Unknown Rx Prednisone [Prednisone 10 mg 10 mg PO .TAPER #1 tab.ds.pk 10/07/14 Unknown Rx (6-Day Pack, 21 Tabs)] Promethazine /Codeine 5 ml PO Q6H PRN #120 ml 10/07/14 Unknown Rx [Phenergan/Codeine 6.25-10 mg/5 ml] Ondansetron [Zofran Odt] 4 mg PO Q8H PRN #10 tab.rapdis 12/10/15 Unknown Rx Active Meds: Active Medications Acetaminophen (Tylenol) 650 mg PO Q6H PRN PRN Reason: Pain MILD(1-3)/Fever >100.5/ROD Albuterol (Proventil) 2.5 mg IH Q3HRT PRN PRN Reason: Shortness Of Breath Albuterol/Ipratropium (Duoneb *Not For Prn Use*) 1 ampul IH Q6HRT LILIAN Last Admin: 06/19/20 07:57 Dose: 1 ampul Documented by: Fentanyl (Sublimaze) 50 mcg IV Q10MIN PRN PRN Reason: ANALGESIA Last Admin: 06/18/20 21:30 Dose: 50 mcg Documented by: Hydrophilic Ointment (Vaseline Lip Therapy) 1 applic TP Q2HR PRN PRN Reason: Dry Lips Propofol (Diprivan 10 Mg/Ml) 1,000 mg in 100 mls @ 1.68 mls/hr IV TITR LILIAN; Protocol Last Titration: 06/19/20 08:02 Dose: 20 mcg/kg/min, 6.72 mls/hr Documented by: Heparin Sodium/Sodium Chloride (Heparin/ 0.45% Nacl-25,000 Unit/500 Ml) 25,000 unit in 500 mls @ 20 mls/hr IV TITRATE LILIAN; Protocol Last Titration: 06/19/20 06:46 Dose: 1,050 units/hr, 21 mls/hr Documented by: Sodium Chloride (Nacl 0.9% 1000 Ml) 1,000 mls @ 0 mls/hr IV ONCE LILIAN Stop: 06/19/20 17:01 Sodium Chloride (Nacl 0.9% 1000 Ml) 1,000 mls @ 150 mls/hr IV DIRECT LILIAN Levofloxacin/Dextrose (Levaquin 750mg/150ml) 750 mg in 150 mls @ 100 mls/hr IV Q24HR LILIAN; Protocol Last Admin: 06/18/20 23:18 Dose: 100 mls/hr Documented by: Fentanyl Citrate (Fentanyl Drip Premix) 2,000 mcg in 100 mls @ 3.969 mls/hr IV TITR LILIAN; Protocol Last Titration: 06/19/20 08:03 Dose: 3 mcg/kg/hr, 11.907 mls/hr Documented by: Midazolam HCl 100 mg/ Sodium (Chloride) 100 mls @ 2 mls/hr IV TITR LILIAN; Protocol Last Titration: 06/19/20 07:30 Dose: 4 mg/hr, 4 mls/hr Documented by: Ibuprofen (Ibuprofen) 600 mg PO Q6H PRN PRN Reason: Pain, Mild (1-3) Lorazepam (Ativan) 2 mg IV Q4H PRN PRN Reason: Agitation Last Admin: 06/19/20 07:35 Dose: 2 mg Documented by: Midazolam HCl (Versed) 2 mg IV Q10MIN PRN PRN Reason: Sedation Multi-Ingred Cream/Lotion/Oil/Oint (Artificial Tears Ophth Oint) 1 applic OU Q4HR PRN PRN Reason: Dry Eye(s) Naloxone HCl (Naloxone) 0.1 mg IV Q2MIN PRN PRN Reason: Res Rate </= 8 or 02 SAT < 92% Senna (Senokot) 8.6 mg PO BID [facility] Last Admin: 06/18/20 23:19 Dose: Not Given Documented by: Sodium Chloride (Sodium Chloride Flush Syringe 10 Ml) 10 ml IV BID [facility] Last Admin: 06/18/20 23:19 Dose: 10 ml Documented by: Sodium Chloride (Sodium Chloride Flush Syringe 10 Ml) 10 ml IV PRN PRN PRN Reason: LINE FLUSH Review of Systems ROS unobtainable: due to endotracheal tube Physical Examination Last Vital Signs Temp 97.8 F 06/19/20 12:00 Pulse 109 H 06/19/20 11:31 Resp 13 06/19/20 11:31 BP 111/53 06/19/20 12:11 Pulse Ox 93 06/19/20 12:11 General appearance: no acute distress HEENT: Positive: Normocephaly Neck: Negative: JVD/HJR Cardiac: Positive: S1/S2, Tachycardia Lungs: Positive: Decreased Breath Sounds (bilaterally) Abdomen: Positive: Soft, Active Bowel Sounds Skin: Negative: Rash Musculoskeletal: No Fluid Collection Extremities: Present: upper extr. pulses, lower extr. pulses. Absent: edema Results 06/19/20 04:33 06/19/20 04:33 Cardiac Enzymes 06/18/20 06/18/20 06/19/20 Range/Units 14:36 21:22 01:08 AST 46 H (5-40) units/L CK-MB (CK-2) 17.6 H 16.6 H (0.0-4.0) ng/mL 06/19/20 Range/Units 04:33 AST 45 H (5-40) units/L CK-MB (CK-2) (0.0-4.0) ng/mL Coagulation 06/18/20 Range/Units 15:04 PT 12.6 (12.2-14.9) Sec. INR 0.93 (0.87-1.13) APTT 32.9 (24.2-36.6) Sec. Lipids 06/18/20 Range/Units 14:36 Triglycerides 160 H (2-149) mg/dL Cholesterol 146 (50-199) mg/dL HDL Cholesterol 49 (40-59) mg/dL Cholesterol/HDL Ratio 2.97 % CBC 06/18/20 06/19/20 Range/Units 15:04 04:33 WBC 17.6 H 11.1 H (4.5-11.0) K/mm3 RBC 5.15 H 4.25 (3.65-5.03) M/mm3 Hgb 14.2 11.8 (11.8-15.2) gm/dl Hct 43.0 35.4 L D (35.5-45.6) % Plt Count 427 340 (140-440) K/mm3 Lymph # 1.6 (1.2-5.4) K/mm3 [place] # 1.0 H (0.0-0.8) K/mm3 Eos # 0.0 (0.0-0.4) K/mm3 Baso # 0.1 (0.0-0.1) K/mm3 Comprehensive Metabolic Panel 06/18/20 06/19/20 Range/Units 14:36 04:33 Sodium 138 144 (137-145) mmol/L Potassium 4.6 4.1 (3.6-5.0) mmol/L Chloride 99.5 106.5 (98-107) mmol/L Carbon Dioxide 16 L 25 D (22-30) mmol/L BUN 18 13 (9-20) mg/dL Creatinine 0.8 0.7 L (0.8-1.3) mg/dL Glucose 114 H 88 (75-100) mg/dL Calcium 9.5 8.3 L (8.4-10.2) mg/dL AST 46 H 45 H (5-40) units/L ALT 72 H 46 (7-56) units/L Alkaline Phosphatase 120 90 (35-129) units/L Total Protein 8.1 6.3 D (6.3-8.2) g/dL Albumin 3.5 L 2.9 L (3.9-5) g/dL - Imaging and Cardiology Echo: pending EKG: report reviewed, image reviewed - EKG Interpretation EKG: no acute changes EKG interpretations - Telemetry EKG Rhythm: Sinus Tachycardia - EKG Sinus rhythms and dysrhythmias: sinus tachycardia Repolarization changes or abnormalities: nonspecific abnormality, ST segment, and/or T wave Assessment and Plan Suspect NSTEMI in the setting of polysubstance abuse. Obtain echo. Will consider ischemic eval when clinically stable. Pt seen in conjunction with Dr. JANICE Vick, who agrees with the assessment and plan of care. - Patient Problems (1) NSTEMI (non-ST elevated myocardial infarction) Current Visit: Yes Status: Acute (2) Acute respiratory failure Current Visit: Yes Status: Acute Qualifiers: Respiratory failure complication: hypoxia Qualified Code(s): J96.01 - Acute respiratory failure with hypoxia (3) Lactic acidosis Current Visit: Yes Status: Acute (4) Acute metabolic encephalopathy Current Visit: Yes Status: Acute (5) Polysubstance abuse Current Visit: Yes Status: Chronic (6) Elevated LFTs Current Visit: Yes Status: Acute (7) HLD (hyperlipidemia) Current Visit: Yes Status: Chronic Qualifiers: Hyperlipidemia type: mixed hyperlipidemia Qualified Code(s): E78.2 - Mixed hyperlipidemia
[2020-06-19] MEDS: SENNOSIDES 8.6 MG TAB PO SCH ×2 (09:04→22:32)
[2020-06-19] MEDS ORDERED: FAMOTIDINE 20 MG/2 ML INJ IV SCH (11:00)
--- NOTE | 2020-06-19 11:08 | Event Note ---
Date: 06/19/20 Extubated this am. Patient was sedated overnight when he should have been extubated once he woke up. Will transfer out of unit.
[2020-06-19] MEDS ORDERED: HALOPERIDOL LACTATE 5 MG/1 ML INJ ONE (11:41)
[2020-06-19] MEDS ORDERED: diphenhydrAMINE 50 MG/ML VIAL IM ONE (11:48)
[2020-06-19] MEDS ORDERED: diphenhydrAMINE 50 MG/ML VIAL ONE (11:48)
[2020-06-19] MEDS ORDERED: HALOPERIDOL LACTATE 5 MG/1 ML INJ IM ONE (11:48)
--- NOTE | 2020-06-19 16:18 | Progress Note ---
Assessment and Plan Assessment and plan: Patient is a 34-year-old male with past medical history of drug use prior history in 2013 of 1013 which was rescinded at the time shortly after presents to the ED via EMS after found unresponsive along tremor tracks and pulmonary studies showing multiple drugs in his system including PCP, cocaine, THC, o pioids. According to information or review of records patient had an acquaintance who states that the patient uses drugs. EMS attempted to administer Narcan 4 mg in route and noted about a 45 seconds seizure-like activity which was shortly after the Narcan was given and resolved. Otherwise patient was unarousable and intubated for airway protection. There were also many unidentified pills laying around the patient unknown if the patient had taken those medications. He is currently intubated at the time of my evaluation imaging studies are unremarkable except for CT head which shows a possible left anterior maxillary sinus wall fracture. Laboratory studies shows mild elevated troponin and leukocytosis. Chest x-ray; IMPRESSION: Endotracheal tube is present and appears to be in good position. No acute pulmonary or pleural abnormality Unresponsive state, Polysubstance abuse, Elevated troponin, Lactic acidosis CT cervical spine: IMPRESSION: 1. No acute fracture or subluxation in the spine in neutral position. CT head: IMPRESSION: 1. No acute intracranial abnormality. 2. Possible left maxillary sinus fracture. Further evaluation with maxillofacial CT recommended. Acute respiratory failure secondary to drug overdose Polysubstance abuse with sedation Acute metabolic encephalopathy secondary to substance abuse Leukocytosis rule out aspiration pneumonia Presumed seizure Elevated troponin possible and NSTEMI secondary to polysubstance abuse Systemic inflammatory response syndrome No evidence of sepsis Lactic acidosis Plan Continue supportive care. Discontinue Felton Patient has been successfully extubated Cardiology input noted anticipate ischemic work-up prior to discharge. We will continue Levaquin empiric IV although this may be discontinued in a.m. Elevated blood pressure and tachycardia likely secondary to residual effect of substance abuse and altered mental status with associated anxiety. Fluid resuscitation If no clinical improvement in mental status will obtain psych evaluation Seizure precautions DVT and GI prophylaxis History Interval history: Patient seen and examined post extubation continues to yell and loud voice not following any commands but awake asking for Felton to come out. Hospitalist Physical - Physical exam Narrative exam: VITAL SIGNS: Reviewed. GENERAL: The patient appears normally developed, otherwise awake but very disoriented, multiple abrasions NG tube to the right measures vital signs as documented. HEAD: No signs of head trauma. EYES: Pupils are equal. EARS: Sedated MOUTH: ET tube in NECK: No adenopathy, no JVD. CHEST: Chest with transmitted bronchovesicular sounds with no wheezing or rales CARDIAC: Regular rate and rhythm. S1 and S2, without murmurs, gallops, or rubs. VASCULAR: No Edema. Peripheral pulses normal and equal in all extremities. ABDOMEN: Soft, non tender and non distended. No rebound or guarding, and no masses palpated. Bowel Sounds normal. MUSCULOSKELETAL: Good range of motion of all major joints. Extremities without clubbing, cyanosis or edema. NEUROLOGIC EXAM: Alert and disoriented no focal sensory or strength deficits. Speech normal. Not fully following commands PSYCHIATRIC: Mood anxious SKIN: Multiple lesions and abrasion detail exam as documented in skin assessment - Constitutional Vitals: Temp Pulse Resp BP Pulse Ox 97.8 F 117 H 18 130/112 97 06/19/20 12:00 06/19/20 14:00 06/19/20 14:00 06/19/20 14:00 06/19/20 14:00 General appearance: Present: no acute distress HEART Score - HEART Score Troponin: Troponin T 0.246 ng/mL (0.00-0.029) H* D 06/19/20 01:08 Results - Labs CBC & Chem 7: 06/19/20 04:33 06/19/20 04:33 Labs: Laboratory Last Values WBC 11.1 K/mm3 (4.5-11.0) H 06/19/20 04:33 RBC 4.25 M/mm3 (3.65-5.03) 06/19/20 04:33 Hgb 11.8 gm/dl (11.8-15.2) 06/19/20 04:33 Hct 35.4 % (35.5-45.6) L D 06/19/20 04:33 MCV 83 fl (84-94) L 06/19/20 04:33 MCH 28 pg (28-32) 06/19/20 04:33 MCHC 33 % (32-34) 06/19/20 04:33 RDW 15.5 % (13.2-15.2) H 06/19/20 04:33 Plt Count 340 K/mm3 (140-440) 06/19/20 04:33 Lymph % (Auto) 9.3 % (13.4-35.0) L 06/18/20 15:04 [place] % (Auto) 5.7 % (0.0-7.3) 06/18/20 15:04 Eos % (Auto) 0.1 % (0.0-4.3) 06/18/20 15:04 Baso % (Auto) 0.5 % (0.0-1.8) 06/18/20 15:04 Lymph # 1.6 K/mm3 (1.2-5.4) 06/18/20 15:04 [place] # 1.0 K/mm3 (0.0-0.8) H 06/18/20 15:04 Eos # 0.0 K/mm3 (0.0-0.4) 06/18/20 15:04 Baso # 0.1 K/mm3 (0.0-0.1) 06/18/20 15:04 Seg Neutrophils % 84.4 % (40.0-70.0) H 06/18/20 15:04 Seg Neutrophils # 14.9 K/mm3 (1.8-7.7) H 06/18/20 15:04 PT 12.6 Sec. (12.2-14.9) 06/18/20 15:04 INR 0.93 (0.87-1.13) 06/18/20 15:04 APTT 32.9 Sec. (24.2-36.6) 06/18/20 15:04 Heparin Anti-Xa Level 0.21 U.I./ml (0.3-0.7) L 06/19/20 14:59 ABG pH 7.373 pH Units (7.350-7.450) 06/19/20 03:00 ABG pCO2 47.9 mm Hg 06/19/20 03:00 ABG pO2 119.8 mm Hg (80.0-90.0) H 06/19/20 03:00 ABG HCO3 27.3 mmol/L (20.0-26.0) H 06/19/20 03:00 ABG O2 Saturation 98.2 % (95.0-99.0) 06/19/20 03:00 ABG O2 Content 16.1 (0.0-44) 06/19/20 03:00 ABG Base Excess 1.5 mmol/L (-2.0-3.0) 06/19/20 03:00 ABG Hemoglobin 11.8 gm/dl (14.0-18.0) L 06/19/20 03:00 ABG Carboxyhemoglobin 1.2 % (0.0-5.0) 06/19/20 03:00 ABG Methemoglobin 0.5 % (0.0-1.5) 06/19/20 03:00 Oxyhemoglobin 96.5 % (95.0-99.0) 06/19/20 03:00 FiO2 50 % 06/19/20 03:00 Sodium 144 mmol/L (137-145) 06/19/20 04:33 Potassium 4.1 mmol/L (3.6-5.0) 06/19/20 04:33 Chloride 106.5 mmol/L (98-107) 06/19/20 04:33 Carbon Dioxide 25 mmol/L (22-30) D 06/19/20 04:33 Anion Gap 17 mmol/L 06/19/20 04:33 BUN 13 mg/dL (9-20) 06/19/20 04:33 Creatinine 0.7 mg/dL (0.8-1.3) L 06/19/20 04:33 Estimated GFR > 60 ml/min 06/19/20 04:33 BUN/Creatinine Ratio 19 % 06/19/20 04:33 Glucose 88 mg/dL (75-100) 06/19/20 04:33 POC Glucose 109 (70-105) H 06/19/20 15:32 Lactic Acid 1.70 mmol/L (0.7-2.0) 06/18/20 22:48 Calcium 8.3 mg/dL (8.4-10.2) L 06/19/20 04:33 Total Bilirubin 0.60 mg/dL (0.1-1.2) 06/19/20 04:33 AST 45 units/L (5-40) H 06/19/20 04:33 ALT 46 units/L (7-56) 06/19/20 04:33 Alkaline Phosphatase 90 units/L (35-129) 06/19/20 04:33 Ammonia 64.0 umol/L (25-60) H 06/18/20 15:04 Total Creatine Kinase 1007 units/L (55-170) H 06/19/20 01:08 CK-MB (CK-2) 16.6 ng/mL (0.0-4.0) H 06/19/20 01:08 CK-MB (CK-2) Rel Index 1.6 (0-4) 06/19/20 01:08 Troponin T 0.246 ng/mL (0.00-0.029) H* D 06/19/20 01:08 Total Protein 6.3 g/dL (6.3-8.2) D 06/19/20 04:33 Albumin 2.9 g/dL (3.9-5) L 06/19/20 04:33 Albumin/Globulin Ratio 0.9 % 06/19/20 04:33 Triglycerides 160 mg/dL (2-149) H 06/18/20 14:36 Cholesterol 146 mg/dL (50-199) 06/18/20 14:36 LDL Cholesterol Direct 87 mg/dL (50-130) 06/18/20 14:36 HDL Cholesterol 49 mg/dL (40-59) 06/18/20 14:36 Cholesterol/HDL Ratio 2.97 % 06/18/20 14:36 TSH 0.743 mlU/mL (0.270-4.200) 06/18/20 14:36 Urine Color Yellow (Yellow) 06/18/20 13:38 Urine Turbidity Clear (Clear) 06/18/20 13:38 Urine pH 5.0 (5.0-7.0) 06/18/20 13:38 Ur Specific [place] 1.024 (1.003-1.030) 06/18/20 13:38 Urine Protein <15 mg/dl mg/dL (Negative) 06/18/20 13:38 Urine Glucose (UA) Neg mg/dL (Negative) 06/18/20 13:38 Urine Ketones Tr mg/dL (Negative) 06/18/20 13:38 Urine Blood Sm (Negative) 06/18/20 13:38 Urine Nitrite Neg (Negative) 06/18/20 13:38 Urine Bilirubin Neg (Negative) 06/18/20 13:38 Urine Urobilinogen 2.0 mg/dL (<2.0) 06/18/20 13:38 Ur Leukocyte Esterase Neg (Negative) 06/18/20 13:38 Urine WBC (Auto) 3.0 /HPF (0.0-6.0) 06/18/20 13:38 Urine RBC (Auto) 4.0 /HPF (0.0-6.0) 06/18/20 13:38 Urine Bacteria (Auto) 2+ /HPF (Negative) 06/18/20 13:38 Salicylates < 0.3 mg/dL (2.8-20.0) L 06/18/20 14:36 Urine Opiates Screen Presumptive positive 06/18/20 13:38 Urine Methadone Screen Presumptive negative 06/18/20 13:38 Acetaminophen < 5.0 ug/mL (10.0-30.0) L 06/18/20 14:36 Ur Barbiturates Screen Presumptive negative 06/18/20 13:38 Ur Phencyclidine Scrn Presumptive negative 06/18/20 13:38 Ur Amphetamines Screen Presumptive positive 06/18/20 13:38 U Benzodiazepines Scrn Presumptive negative 06/18/20 13:38 Urine Cocaine Screen Presumptive positive 06/18/20 13:38 U Marijuana (THC) Screen Presumptive positive 06/18/20 13:38 Drugs of Abuse Note Disclamer 06/18/20 13:38 Plasma/Serum Alcohol < 0.01 % (0-0.07) 06/18/20 14:36 Microbiology: Microbiology 06/18/20 Unknown Peripheral/Venous Blood Culture - Preliminary NO GROWTH AFTER 24 HOURS 06/18/20 15:07 Peripheral/Venous Blood Culture - Preliminary NO GROWTH AFTER 24 HOURS 06/18/20 16:25 Tracheal Aspirate Sputum Culture - Final Beta Hemolytic Strep Group B Felton/IV: Voiding Method Indwelling Catheter IV Catheter Type [Right Upper INT / Saline Lock arm] IV Catheter Type [Left INT / Saline Lock External Jugular] IV Catheter Type [Left Upper INT / Saline Lock arm] Active Medications - Current Medications Current Medications: Generic Name Dose Route Start Last Admin Trade Name Freq PRN Reason Stop Dose Admin Acetaminophen 650 mg 06/18/20 16:46 Tylenol PO Q6H PRN Pain MILD(1-3)/Fever >100.5/ROD Albuterol 2.5 mg 06/18/20 16:46 Proventil IH Q3HRT PRN Shortness Of Breath Albuterol/Ipratropium 1 ampul 06/18/20 20:00 06/19/20 07:57 Duoneb *Not For Prn Use* IH 1 ampul Q6HRT LILIAN Administration Famotidine 20 mg 06/19/20 11:00 06/19/20 11:53 Pepcid IV 20 mg BID LILIAN Administration Fentanyl 50 mcg 06/18/20 21:20 06/18/20 21:30 Sublimaze IV 50 mcg Q10MIN PRN Administration ANALGESIA Heparin Sodium/Sodium Chloride 25,000 unit in 500 mls @ 20 mls/hr 06/18/20 17:00 06/19/20 06:46 Heparin/ 0.45% Nacl-25,000 Unit/500 Ml IV 1,050 units/hr TITRATE LILIAN 21 mls/hr Titration Protocol 1,000 UNITS/HR Sodium Chloride 1,000 mls @ 0 mls/hr 06/18/20 17:00 Nacl 0.9% 1000 Ml IV 06/19/20 17:01 ONCE LILIAN As Directed Sodium Chloride 1,000 mls @ 150 mls/hr 06/18/20 17:00 Nacl 0.9% 1000 Ml IV DIRECT LILIAN Levofloxacin/Dextrose 750 mg in 150 mls @ 100 mls/hr 06/18/20 18:00 06/19/20 09:03 Levaquin 750mg/150ml IV 100 mls/hr Q24HR LILIAN Administration Protocol Ibuprofen 600 mg 06/18/20 16:46 Ibuprofen PO Q6H PRN Pain, Mild (1-3) Lorazepam 2 mg 06/18/20 16:49 06/19/20 11:49 Ativan IV 2 mg Q4H PRN Administration Agitation Midazolam HCl 2 mg 06/18/20 22:02 Versed IV Q10MIN PRN Sedation Naloxone HCl 0.1 mg 06/18/20 16:49 Naloxone IV Q2MIN PRN Res Rate </= 8 or 02 SAT < 92% Senna 8.6 mg 06/18/20 22:00 06/19/20 09:04 Senokot PO Not Given BID LILIAN Sodium Chloride 10 ml 06/18/20 22:00 06/19/20 09:04 Sodium Chloride Flush Syringe 10 Ml IV 10 ml BID LILIAN Administration Sodium Chloride 10 ml 06/18/20 16:46 Sodium Chloride Flush Syringe 10 Ml IV PRN PRN LINE FLUSH Nutrition/Malnutrition Assess - Dietary Evaluation Nutrition/Malnutrition Findings: Nutrition Notes Start: 06/19/20 10:27 Freq: Status: Active Protocol: Document 06/19/20 10:27 LP (Rec: 06/19/20 10:33 LP [id number]) Nutrition Notes Need for Assessment generated from: MD Order Initial or Follow up Assessment Current Diagnosis Respiratory Failure Other Pertinent Diagnosis polysubstance abuse Current Diet NPO Labs/Tests Reviewed Pertinent Medications Propofol Height 5 ft 8 in Weight 55.2 kg [place] Body Weight (kg) 70.00 BMI 18.5 Weight Status Underweight Subjective/Other Information Consult for evaluation of nutrition intakes. Pt on vent. Burn Absent Trauma Absent GI Symptoms None Current % PO Negligible Minimum of two criteria No physical signs of malnutrition #1 Nutrition Diagnosis Inadequate oral intake Etiology ARF As Evidenced by Signs and Symptoms Pt on vent and unable to consume PO Is patient on ventilator? Yes Is Patient Ambulatory and/or Out of Bed No REE-([place]-confined to bed) 1756.500 [facility] Additional Notes Protein needs are 66-110g (1.2 -2g/kg) Fluid needs are 1ml/kcal Nutrition Intervention Change Diet Order: TF consult or extubation Nutrition Support: Once consulted Vital 1.2 at 60ml/hr Flush with 100ml q4h Kcal 1,728 Protein (gm) 108 Fluid (mL) 1,163 Goal #1 TF consult or extubation Anticipated Discharge Needs: Unable to determine at this time Follow-Up By: 06/22/20 Additional Comments Follow for TF consult or extubation
[2020-06-19] MEDS ORDERED: ZIPRASIDONE MESYLATE 20 MG VIAL IM ONE (16:49)
[2020-06-19] MEDS ORDERED: WATER FOR INJ Sterile (PF) 10 ML ONE (17:14)
[2020-06-19] MEDS: HEPARIN/ 0.45% NACL DRIP 25,000 UNIT/500 ML BAG IV SCH (22:27)
[2020-06-19] MEDS: SODIUM CHLORIDE 0.9% 1000 ML 1,000 ML IV SCH (23:29)
[2020-06-20 06:35] LABS: Hematocrit 37.9 % (35.5-45.6); Hemoglobin 12.7 gm/dl (11.8-15.2)
[2020-06-20] MEDS ORDERED: DEXTROSE 50% IN WATER (25GM) 50 ML SYRINGE IV PRN (07:10)
[2020-06-20] MEDS: SENNOSIDES 8.6 MG TAB PO SCH ×2 (09:03→22:51)
--- NOTE | 2020-06-20 09:52 | Progress Note ---
Assessment and Plan Assessment and plan: Patient is a 34-year-old male with past medical history of drug use prior history in 2013 of 1013 which was rescinded at the time shortly after presents to the ED via EMS after found unresponsive along tremor tracks and pulmonary studies showing multiple drugs in his system including PCP, cocaine, THC, o pioids. According to information or review of records patient had an acquaintance who states that the patient uses drugs. EMS attempted to administer Narcan 4 mg in route and noted about a 45 seconds seizure-like activity which was shortly after the Narcan was given and resolved. Otherwise patient was unarousable and intubated for airway protection. There were also many unidentified pills laying around the patient unknown if the patient had taken those medications. He is currently intubated at the time of my evaluation imaging studies are unremarkable except for CT head which shows a possible left anterior maxillary sinus wall fracture. Laboratory studies shows mild elevated troponin and leukocytosis. Chest x-ray; IMPRESSION: Endotracheal tube is present and appears to be in good position. No acute pulmonary or pleural abnormality Unresponsive state, Polysubstance abuse, Elevated troponin, Lactic acidosis CT cervical spine: IMPRESSION: 1. No acute fracture or subluxation in the spine in neutral position. CT head: IMPRESSION: 1. No acute intracranial abnormality. 2. Possible left maxillary sinus fracture. Further evaluation with maxillofacial CT recommended. 06/20: Clinical improving, discontinue restraints. Anticipate discharge in am pending cardiac work up Acute respiratory failure secondary to drug overdose Polysubstance abuse with sedation Acute metabolic encephalopathy secondary to substance abuse Leukocytosis rule out aspiration pneumonia Presumed seizure Elevated troponin possible and NSTEMI secondary to polysubstance abuse Systemic inflammatory response syndrome No evidence of sepsis Lactic acidosis Plan Continue supportive care. Discontinue [place] Patient has been successfully extubated Cardiology input noted anticipate ischemic work-up prior to discharge. We will continue Levaquin empiric IV although this may be discontinued in a.m. Elevated blood pressure and tachycardia likely secondary to residual effect of substance abuse and altered mental status with associated anxiety. Fluid resuscitation If no clinical improvement in mental status will obtain psych evaluation Seizure precautions DVT and GI prophylaxis History Interval history: Patient seen and examined in no acute distress, Hospitalist Physical - Physical exam Narrative exam: VITAL SIGNS: Reviewed. GENERAL: The patient appears normally developed, [place] but much improved vital signs as documented. HEAD: No signs of head trauma. EYES: Pupils are equal. EARS: Sedated MOUTH: ET tube in NECK: No adenopathy, no JVD. CHEST: Chest with transmitted bronchovesicular sounds with no wheezing or rales CARDIAC: Regular rate and rhythm. S1 and S2, without murmurs, gallops, or rubs . VASCULAR: No Edema. Peripheral pulses normal and equal in all extremities. ABDOMEN: Soft, non tender and non distended. No rebound or guarding, and no masses palpated. Bowel Sounds normal. MUSCULOSKELETAL: Good range of motion of all major joints. Extremities without clubbing, cyanosis or edema. NEUROLOGIC EXAM: Alert and oriented x 3 no focal sensory or strength deficits. Speech normal. Not fully following commands PSYCHIATRIC: Mood normal SKIN: Multiple punctate lesions and abrasion detail exam as documented in skin assessment - Constitutional Vitals: Temp Pulse Resp BP Pulse Ox 98.3 F 64 20 132/88 100 06/20/20 05:29 06/20/20 05:29 06/20/20 05:29 06/20/20 05:29 06/20/20 05:29 General appearance: Present: no acute distress HEART Score - HEART Score Troponin: Troponin T 0.246 ng/mL (0.00-0.029) H* D 06/19/20 01:08 Results - Labs CBC & Chem 7: 06/20/20 05:35 06/19/20 04:33 Labs: Laboratory Last Values WBC 11.1 K/mm3 (4.5-11.0) H 06/19/20 04:33 RBC 4.25 M/mm3 (3.65-5.03) 06/19/20 04:33 Hgb 12.7 gm/dl (11.8-15.2) 06/20/20 05:35 Hct 37.9 % (35.5-45.6) 06/20/20 05:35 MCV 83 fl (84-94) L 06/19/20 04:33 MCH 28 pg (28-32) 06/19/20 04:33 MCHC 33 % (32-34) 06/19/20 04:33 RDW 15.5 % (13.2-15.2) H 06/19/20 04:33 Plt Count 339 K/mm3 (140-440) 06/20/20 05:35 Lymph % (Auto) 9.3 % (13.4-35.0) L 06/18/20 15:04 Yell % (Auto) 5.7 % (0.0-7.3) 06/18/20 15:04 Eos % (Auto) 0.1 % (0.0-4.3) 06/18/20 15:04 Baso % (Auto) 0.5 % (0.0-1.8) 06/18/20 15:04 Lymph # 1.6 K/mm3 (1.2-5.4) 06/18/20 15:04 Yell # 1.0 K/mm3 (0.0-0.8) H 06/18/20 15:04 Eos # 0.0 K/mm3 (0.0-0.4) 06/18/20 15:04 Baso # 0.1 K/mm3 (0.0-0.1) 06/18/20 15:04 Seg Neutrophils % 84.4 % (40.0-70.0) H 06/18/20 15:04 Seg Neutrophils # 14.9 K/mm3 (1.8-7.7) H 06/18/20 15:04 PT 12.6 Sec. (12.2-14.9) 06/18/20 15:04 INR 0.93 (0.87-1.13) 06/18/20 15:04 APTT 32.9 Sec. (24.2-36.6) 06/18/20 15:04 Heparin Anti-Xa Level 0.10 U.I./ml (0.3-0.7) L 06/19/20 23:55 ABG pH 7.373 pH Units (7.350-7.450) 06/19/20 03:00 ABG pCO2 47.9 mm Hg 06/19/20 03:00 ABG pO2 119.8 mm Hg (80.0-90.0) H 06/19/20 03:00 ABG HCO3 27.3 mmol/L (20.0-26.0) H 06/19/20 03:00 ABG O2 Saturation 98.2 % (95.0-99.0) 06/19/20 03:00 ABG O2 Content 16.1 (0.0-44) 06/19/20 03:00 ABG Base Excess 1.5 mmol/L (-2.0-3.0) 06/19/20 03:00 ABG Hemoglobin 11.8 gm/dl (14.0-18.0) L 06/19/20 03:00 ABG Carboxyhemoglobin 1.2 % (0.0-5.0) 06/19/20 03:00 ABG Methemoglobin 0.5 % (0.0-1.5) 06/19/20 03:00 Oxyhemoglobin 96.5 % (95.0-99.0) 06/19/20 03:00 FiO2 50 % 06/19/20 03:00 Sodium 144 mmol/L (137-145) 06/19/20 04:33 Potassium 4.1 mmol/L (3.6-5.0) 06/19/20 04:33 Chloride 106.5 mmol/L (98-107) 06/19/20 04:33 Carbon Dioxide 25 mmol/L (22-30) D 06/19/20 04:33 Anion Gap 17 mmol/L 06/19/20 04:33 BUN 13 mg/dL (9-20) 06/19/20 04:33 Creatinine 0.7 mg/dL (0.8-1.3) L 06/19/20 04:33 Estimated GFR > 60 ml/min 06/19/20 04:33 BUN/Creatinine Ratio 19 % 06/19/20 04:33 Glucose 88 mg/dL (75-100) 06/19/20 04:33 POC Glucose 114 (70-105) H 06/20/20 09:04 Lactic Acid 1.70 mmol/L (0.7-2.0) 06/18/20 22:48 Calcium 8.3 mg/dL (8.4-10.2) L 06/19/20 04:33 Total Bilirubin 0.60 mg/dL (0.1-1.2) 06/19/20 04:33 AST 45 units/L (5-40) H 06/19/20 04:33 ALT 46 units/L (7-56) 06/19/20 04:33 Alkaline Phosphatase 90 units/L (35-129) 06/19/20 04:33 Ammonia 64.0 umol/L (25-60) H 06/18/20 15:04 Total Creatine Kinase 1007 units/L (55-170) H 06/19/20 01:08 CK-MB (CK-2) 16.6 ng/mL (0.0-4.0) H 06/19/20 01:08 CK-MB (CK-2) Rel Index 1.6 (0-4) 06/19/20 01:08 Troponin T 0.246 ng/mL (0.00-0.029) H* D 06/19/20 01:08 Total Protein 6.3 g/dL (6.3-8.2) D 06/19/20 04:33 Albumin 2.9 g/dL (3.9-5) L 06/19/20 04:33 Albumin/Globulin Ratio 0.9 % 06/19/20 04:33 Triglycerides 160 mg/dL (2-149) H 06/18/20 14:36 Cholesterol 146 mg/dL (50-199) 06/18/20 14:36 LDL Cholesterol Direct 87 mg/dL (50-130) 06/18/20 14:36 HDL Cholesterol 49 mg/dL (40-59) 06/18/20 14:36 Cholesterol/HDL Ratio 2.97 % 06/18/20 14:36 TSH 0.743 mlU/mL (0.270-4.200) 06/18/20 14:36 Urine Color Yellow (Yellow) 06/18/20 13:38 Urine Turbidity Clear (Clear) 06/18/20 13:38 Urine pH 5.0 (5.0-7.0) 06/18/20 13:38 Ur Specific [place] 1.024 (1.003-1.030) 06/18/20 13:38 Urine Protein <15 mg/dl mg/dL (Negative) 06/18/20 13:38 Urine Glucose (UA) Neg mg/dL (Negative) 06/18/20 13:38 Urine Ketones Tr mg/dL (Negative) 06/18/20 13:38 Urine Blood Sm (Negative) 06/18/20 13:38 Urine Nitrite Neg (Negative) 06/18/20 13:38 Urine Bilirubin Neg (Negative) 06/18/20 13:38 Urine Urobilinogen 2.0 mg/dL (<2.0) 06/18/20 13:38 Ur Leukocyte Esterase Neg (Negative) 06/18/20 13:38 Urine WBC (Auto) 3.0 /HPF (0.0-6.0) 06/18/20 13:38 Urine RBC (Auto) 4.0 /HPF (0.0-6.0) 06/18/20 13:38 Urine Bacteria (Auto) 2+ /HPF (Negative) 06/18/20 13:38 Salicylates < 0.3 mg/dL (2.8-20.0) L 06/18/20 14:36 Urine Opiates Screen Presumptive positive 06/18/20 13:38 Urine Methadone Screen Presumptive negative 06/18/20 13:38 Acetaminophen < 5.0 ug/mL (10.0-30.0) L 06/18/20 14:36 Ur Barbiturates Screen Presumptive negative 06/18/20 13:38 Ur Phencyclidine Scrn Presumptive negative 06/18/20 13:38 Ur Amphetamines Screen Presumptive positive 06/18/20 13:38 U Benzodiazepines Scrn Presumptive negative 06/18/20 13:38 Urine Cocaine Screen Presumptive positive 06/18/20 13:38 U Marijuana (THC) Screen Presumptive positive 06/18/20 13:38 Drugs of Abuse Note Disclamer 06/18/20 13:38 Plasma/Serum Alcohol < 0.01 % (0-0.07) 06/18/20 14:36 Microbiology: Microbiology 06/18/20 Unknown Peripheral/Venous Blood Culture - Preliminary NO GROWTH AFTER 24 HOURS 06/18/20 15:07 Peripheral/Venous Blood Culture - Preliminary NO GROWTH AFTER 24 HOURS 06/18/20 16:25 Tracheal Aspirate Sputum Culture - Final Beta Hemolytic Strep Group B [place]/IV: Voiding Method Condom Catheter IV Catheter Type [Right Upper INT / Saline Lock arm] IV Catheter Type [Left INT / Saline Lock External Jugular] IV Catheter Type [Left Upper INT / Saline Lock arm] Active Medications - Current Medications Current Medications: Generic Name Dose Route Start Last Admin Trade Name Freq PRN Reason Stop Dose Admin Acetaminophen 650 mg 06/18/20 16:46 Tylenol PO Q6H PRN Pain MILD(1-3)/Fever >100.5/ROD Dextrose 25 ml 06/20/20 07:10 D50w (25gm) Syringe IV Q30MIN PRN Hypoglycemia Protocol Heparin Sodium/Sodium Chloride 25,000 unit in 500 mls @ 20 mls/hr 06/18/20 17:00 08/30/20 02:31 Heparin/ 0.45% Nacl-25,000 Unit/500 Ml IV 1,200 units/hr TITRATE LILIAN 24 mls/hr Titration Protocol 1,000 UNITS/HR Sodium Chloride 1,000 mls @ 150 mls/hr 06/18/20 17:00 06/19/20 23:29 Nacl 0.9% 1000 Ml IV 150 mls/hr DIRECT LILIAN Administration Levofloxacin/Dextrose 750 mg in 150 mls @ 100 mls/hr 06/18/20 18:00 06/20/20 09:03 Levaquin 750mg/150ml IV 100 mls/hr Q24HR LILIAN Administration Protocol Lorazepam 2 mg 06/19/20 16:51 Ativan IV Q4H PRN Agitation Naloxone HCl 0.1 mg 06/18/20 16:49 Naloxone IV Q2MIN PRN Res Rate </= 8 or 02 SAT < 92% Senna 8.6 mg 06/18/20 22:00 06/20/20 09:03 Senokot PO 8.6 mg BID LILIAN Administration Sodium Chloride 10 ml 06/18/20 22:00 06/20/20 09:04 Sodium Chloride Flush Syringe 10 Ml IV 10 ml BID LILIAN Administration Sodium Chloride 10 ml 06/18/20 16:46 Sodium Chloride Flush Syringe 10 Ml IV PRN PRN LINE FLUSH Nutrition/Malnutrition Assess - Dietary Evaluation Nutrition/Malnutrition Findings: Nutrition Notes Start: 06/19/20 10:27 Freq: Status: Active Protocol: Document 06/19/20 10:27 LP (Rec: 06/19/20 10:33 LP [email or web address]) Nutrition Notes Need for Assessment generated from: MD Order Initial or Follow up Assessment Current Diagnosis Respiratory Failure Other Pertinent Diagnosis polysubstance abuse Current Diet NPO Labs/Tests Reviewed Pertinent Medications Propofol Height 5 ft 8 in Weight 55.2 kg [place] Body Weight (kg) 70.00 BMI 18.5 Weight Status Underweight Subjective/Other Information Consult for evaluation of nutrition intakes. Pt on vent. Burn Absent Trauma Absent GI Symptoms None Current % PO Negligible Minimum of two criteria No physical signs of malnutrition #1 Nutrition Diagnosis Inadequate oral intake Etiology ARF As Evidenced by Signs and Symptoms Pt on vent and unable to consume PO Is patient on ventilator? Yes Is Patient Ambulatory and/or Out of Bed No REE-([place]-confined to bed) 1392.500 Calculation Used for Recommendations Yousuf Johnson Additional Notes Protein needs are 66-110g (1.2 -2g/kg) Fluid needs are 1ml/kcal Nutrition Intervention Change Diet Order: TF consult or extubation Nutrition Support: Once consulted Vital 1.2 at 60ml/hr Flush with 100ml q4h Kcal 1,728 Protein (gm) 108 Fluid (mL) 1,163 Goal #1 TF consult or extubation Anticipated Discharge Needs: Unable to determine at this time Follow-Up By: 06/22/20 Additional Comments Follow for TF consult or extubation
[2020-06-20] MEDS: SODIUM CHLORIDE 0.9% 1000 ML 1,000 ML IV SCH ×2 (12:40→22:51)
[2020-06-20] MEDS: LORazepam 2 MG/ML VIAL IV PRN ×2 (14:18→22:52)
--- NOTE | 2020-06-20 14:38 | Consultation ---
History of Present Illness - Reason for Consult Consult date: 06/20/20 Reason for consult: acute psychosis, drug use - History of Present Psychiatric Illness Deep Verduzco is a 34y/o male patient who was brought to the ER [place]. The patient has a history of heroine use, according to medical records. During my interview with the patient today, he is lying in bed shouting out. He is in 4-point restraints. He is a/o x 3, but has to thing about the date and the name of the President of the [employer]. He is easily agitated and cursing at times. He is pulling against his restraints. He says he was brought to the hospital for "doing heroine." He says "I fell out." He says, "I'm fine now. I just want to go home." The patient denies hallucinations initially, then states, "I guess, I really don't know." The patient denies SI/HI or having a suicidal attempt in the past. He says "f*ck no," when asked. He denies any past psychiatric admissions. The patient then tells me that he was on "wellbutrin for energy and alert." PAST PSYCHIATRIC HISTORY: Diagnoses: Denies Suicide attempts or Self-harm behavior: Denies Prior psychiatric hospitalizations: Denies Substance Abuse history: Heroine, cocaine Previous psychiatric medications tried: "wellbutrin" Outpatient treatment: No PAST MEDICAL HISTORY: None reported Family Psychiatric History: None reported or documented SOCIAL HISTORY Marital Status: Living Arrangements: With spouse Employment Status: Unemployed Access to guns/weapons: Denies Education: HS grad History of Abuse: Denies Legal History: Denies MSE Appearance: Wearing appropriate clothing. Behavior: agitated, anxious Mood: "fine" Affect: Restricted Thought Process: Goal directed Speech: increased tone, normal pace Thought Content Suicidal: Denies Homicidal: Denies Hallucinations: Auditory Delusions: none elicited Consciousness: alert. Cognition/Memory: Limited Insight/Judgment: Impaired Diagnoses: Acute Psychosis Polysubstance Dependance Treatment Plan Initiated 1013 Start Olanzapine 2.5mg po daily Start Depakote 125mg po BID Start Trazodone 50mg po qhs Start Geodon 20mg IM q6h prn agitation Sitter: Defer to primary Medical: Per primary Disposition: Recommend acute inpatient psychiatric treatment Will follow. Thank you for this consult. Medications and Allergies Allergies Allergy/AdvReac Type Severity Reaction Status Date / Time No Known Allergies Allergy Verified 06/18/20 13:08 Home Medications Medication Instructions Recorded Confirmed Last Taken Type Azithromycin [Zithromax TAB] 500 mg PO QDAY #3 tablet 10/07/14 06/19/20 Unknown Rx Benzonatate [Tessalon Perles] 100 mg PO Q8HR #30 capsule 10/07/14 06/19/20 Unknown Rx Ondansetron [Zofran Odt] 4 mg PO Q6H #7 tab.rapdis 10/07/14 06/19/20 Unknown Rx Prednisone [Prednisone 10 mg 10 mg PO .TAPER #1 tab.ds.pk 10/07/14 06/19/20 Unknown Rx (6-Day Pack, 21 Tabs)] Promethazine /Codeine 5 ml PO Q6H PRN #120 ml 10/07/14 06/19/20 Unknown Rx [Phenergan/Codeine 6.25-10 mg/5 ml] Ondansetron [Zofran Odt] 4 mg PO Q8H PRN #10 tab.rapdis 12/10/15 06/19/20 Unknown Rx Active Meds: Active Medications Acetaminophen (Tylenol) 650 mg PO Q6H PRN PRN Reason: Pain MILD(1-3)/Fever >100.5/ROD Dextrose (D50w (25gm) Syringe) 25 ml IV Q30MIN PRN; Protocol PRN Reason: Hypoglycemia Heparin Sodium/Sodium Chloride (Heparin/ 0.45% Nacl-25,000 Unit/500 Ml) 25,000 unit in 500 mls @ 20 mls/hr IV TITRATE LILIAN; Protocol Last Titration: 06/20/20 13:51 Dose: 1,200 units/hr, 24 mls/hr Documented by: Sodium Chloride (Nacl 0.9% 1000 Ml) 1,000 mls @ 150 mls/hr IV DIRECT LILIAN Last Admin: 06/20/20 12:40 Dose: 150 mls/hr Documented by: Levofloxacin/Dextrose (Levaquin 750mg/150ml) 750 mg in 150 mls @ 100 mls/hr IV Q24HR LILIAN; Protocol Last Admin: 06/20/20 09:03 Dose: 100 mls/hr Documented by: Lorazepam (Ativan) 2 mg IV Q4H PRN PRN Reason: Agitation Last Admin: 06/20/20 14:18 Dose: 2 mg Documented by: Naloxone HCl (Naloxone) 0.1 mg IV Q2MIN PRN PRN Reason: Res Rate </= 8 or 02 SAT < 92% Senna (Senokot) 8.6 mg PO BID [facility] Last Admin: 06/20/20 09:03 Dose: 8.6 mg Documented by: Sodium Chloride (Sodium Chloride Flush Syringe 10 Ml) 10 ml IV BID [facility] Last Admin: 06/20/20 09:04 Dose: 10 ml Documented by: Sodium Chloride (Sodium Chloride Flush Syringe 10 Ml) 10 ml IV PRN PRN PRN Reason: LINE FLUSH Mental Status Exam - Vital signs Last Vital Signs Temp 99.5 F 06/20/20 11:05 Pulse 90 06/20/20 11:05 Resp 18 06/20/20 11:05 BP 124/84 06/20/20 11:05 Pulse Ox 100 06/20/20 11:05 Results Result Diagrams: 06/20/20 05:35 06/19/20 04:33 Abnormal lab results 06/19/20 06/19/20 06/19/20 Range/Units 12:25 14:44 14:59 Heparin Anti-Xa Level 0.21 L (0.3-0.7) U.I./ml POC Glucose 59 L 65 L (70-105) 06/19/20 06/19/20 06/19/20 Range/Units 15:32 22:05 23:55 Heparin Anti-Xa Level 0.10 L (0.3-0.7) U.I./ml POC Glucose 109 H 54 L (70-105) 06/20/20 Range/Units 09:04 Heparin Anti-Xa Level (0.3-0.7) U.I./ml POC Glucose 114 H (70-105) All other labs normal.
[2020-06-20] MEDS: DIVALPROEX DR 125 MG TAB PO SCH ×2 (15:00→22:51)
--- NOTE | 2020-06-20 16:30 | Progress Note ---
Assessment and Plan Suspect NSTEMI in the setting of polysubstance abuse/overdose. Obtain echo. Cont heparin drip. Plan for ischemic eval when clinically stable. Pt seen in conjunction with Dr. JANICE Vick, who agrees with the assessment and plan of care. - Patient Problems (1) NSTEMI (non-ST elevated myocardial infarction) Current Visit: Yes Status: Acute (2) Drug overdose, multiple drugs Current Visit: Yes Status: Acute (3) Acute respiratory failure Current Visit: Yes Status: Acute Qualifiers: Respiratory failure complication: hypoxia Qualified Code(s): J96.01 - Acute respiratory failure with hypoxia (4) Lactic acidosis Current Visit: Yes Status: Acute (5) Acute metabolic encephalopathy Current Visit: Yes Status: Acute (6) Polysubstance abuse Current Visit: Yes Status: Chronic (7) Elevated LFTs Current Visit: Yes Status: Acute (8) HLD (hyperlipidemia) Current Visit: Yes Status: Chronic Qualifiers: Hyperlipidemia type: mixed hyperlipidemia Qualified Code(s): E78.2 - Mixed hyperlipidemia Subjective Date of service: 06/20/20 Principal diagnosis: NSTEMI, Polysubstance Abuse Interval history: Pt agitated upon exam. He denies chest pain or any additional cardiac complaint s. Tele reviewed - NSR 80s w/no acute events noted. Objective Last Vital Signs Temp 99.5 F 06/20/20 11:05 Pulse 90 06/20/20 11:05 Resp 18 06/20/20 11:05 BP 124/84 06/20/20 11:05 Pulse Ox 100 06/20/20 11:05 - Physical Examination General: No Apparent Distress HEENT: Positive: EOMI, Normocephaly, Mucus Membranes Moist Neck: Positive: neck supple, trachea midline. Negative: JVD/HJR Cardiac: Positive: Reg Rate and Rhythm, S1/S2. Negative: Audible Murmur Lungs: Positive: clear to auscultation (bilaterally) Neuro: Positive: Grossly Intact Abdomen: Positive: Soft, Active Bowel Sounds. Negative: Tender Skin: Negative: Rash Musculoskeletal: No Fluid Collection, No Pain, Normal Range of Motion Extremities: Present: upper extr. pulses, lower extr. pulses. Absent: edema - Labs and Meds CBC 06/20/20 Range/Units 05:35 Hgb 12.7 (11.8-15.2) gm/dl Hct 37.9 (35.5-45.6) % Plt Count 339 (140-440) K/mm3 - Imaging and Cardiology EKG: report reviewed, image reviewed Echo: pending - Telemetry EKG Rhythm: Sinus Rhythm - EKG Sinus rhythms and dysrhythmias: sinus tachycardia Repolarization changes or abnormalities: nonspecific abnormality, ST segment, and/or T wave
[2020-06-20] MEDS: HEPARIN/ 0.45% NACL DRIP 25,000 UNIT/500 ML BAG IV SCH (22:50)
[2020-06-20] MEDS: traZODone 50 MG TAB PO SCH (22:51)
[2020-06-20] MEDS: ACETAMINOPHEN 325 MG TAB PO PRN (22:52)
[2020-06-21] MEDS: ONDANSETRON 4 MG/2 ML INJ IV PRN (03:48)
[2020-06-21] MEDS: LORazepam 2 MG/ML VIAL IV PRN ×4 (03:53→16:59)
[2020-06-21] MEDS: SODIUM CHLORIDE 0.9% 1000 ML 1,000 ML IV SCH (07:48)
[2020-06-21] MEDS: SENNOSIDES 8.6 MG TAB PO SCH ×2 (11:05→21:52)
--- NOTE | 2020-06-21 11:18 | Progress Note ---
Assessment and Plan tte reviewed - EF 25-30%, mild LVH, anterior wall hypokinetic, impaired relaxation. No apparent clinical evidence of acutely decompensated HF. Initiate coreg and lisinopril in setting of CMP. Suspect NSTEMI type II in the setting of polysubstance abuse/overdose. S/p heparin gtt for >48Hr. D/c heparin. Cont ASA 325 and statin. Plan for lexiscan MPI stress test in AM in setting of newly diagnosed CMP. NPO after MN. Pt seen in conjunction with Dr. Koffi Vick who agrees with the assessment and plan of care. - Patient Problems (1) NSTEMI (non-ST elevated myocardial infarction) Current Visit: Yes Status: Acute (2) Drug overdose, multiple drugs Current Visit: Yes Status: Acute (3) Elevated LFTs Current Visit: Yes Status: Acute (4) Acute respiratory failure Current Visit: Yes Status: Acute Qualifiers: Respiratory failure complication: hypoxia Qualified Code(s): J96.01 - Acute respiratory failure with hypoxia (5) Lactic acidosis Current Visit: Yes Status: Acute (6) Acute metabolic encephalopathy Current Visit: Yes Status: Acute (7) Polysubstance abuse Current Visit: Yes Status: Chronic (8) Elevated LFTs Current Visit: Yes Status: Acute (9) HLD (hyperlipidemia) Current Visit: Yes Status: Chronic Qualifiers: Hyperlipidemia type: mixed hyperlipidemia Qualified Code(s): E78.2 - Mixed hyperlipidemia Subjective Date of service: 06/21/20 Principal diagnosis: NSTEMI, Polysubstance Abuse Interval history: for echo today. in SR on tele. Objective Last Vital Signs Temp 99.1 F 06/21/20 07:56 Pulse 104 H 06/21/20 07:56 Resp 20 06/21/20 07:56 BP 142/97 06/21/20 07:56 Pulse Ox 97 06/21/20 07:56 - Physical Examination General: No Apparent Distress HEENT: Positive: EOMI, Normocephaly, Mucus Membranes Moist Neck: Positive: neck supple, trachea midline. Negative: JVD/HJR Cardiac: Positive: Reg Rate and Rhythm, S1/S2 Lungs: Positive: Decreased Breath Sounds Neuro: Positive: Grossly Intact Abdomen: Positive: Soft, Active Bowel Sounds. Negative: Tender Skin: Negative: Rash Musculoskeletal: No Fluid Collection, No Pain, Normal Range of Motion Extremities: Present: upper extr. pulses, lower extr. pulses. Absent: edema - Imaging and Cardiology EKG: report reviewed, image reviewed Echo: pending - EKG Sinus rhythms and dysrhythmias: sinus tachycardia Repolarization changes or abnormalities: nonspecific abnormality, ST segment, and/or T wave
[2020-06-21] MEDS: DIVALPROEX DR 125 MG TAB PO SCH (11:19)
--- NOTE | 2020-06-21 12:43 | Progress Note ---
Assessment and Plan Assessment and plan: Patient is a 34-year-old male with past medical history of drug use prior history in 2013 of 1013 which was rescinded at the time shortly after presents to the ED via EMS after found unresponsive along tremor tracks and pulmonary studies showing multiple drugs in his system including PCP, cocaine, THC, o pioids. According to information or review of records patient had an acquaintance who states that the patient uses drugs. EMS attempted to administer Narcan 4 mg in route and noted about a 45 seconds seizure-like activity which was shortly after the Narcan was given and resolved. Otherwise patient was unarousable and intubated for airway protection. There were also many unidentified pills laying around the patient unknown if the patient had taken those medications. He is currently intubated at the time of my evaluation imaging studies are unremarkable except for CT head which shows a possible left anterior maxillary sinus wall fracture. Laboratory studies shows mild elevated troponin and leukocytosis. Chest x-ray; IMPRESSION: Endotracheal tube is present and appears to be in good position. No acute pulmonary or pleural abnormality Unresponsive state, Polysubstance abuse, Elevated troponin, Lactic acidosis CT cervical spine: IMPRESSION: 1. No acute fracture or subluxation in the spine in neutral position. CT head: IMPRESSION: 1. No acute intracranial abnormality. 2. Possible left maxillary sinus fracture. Further evaluation with maxillofacial CT recommended. 06/20: Clinical improving, discontinue restraints. Anticipate discharge in am pending cardiac work up 06/21: Patient awaiting cardiac work-up. Psych input is noted patient now on a 1013 recommend an inpatient psych placement. Leukocytosis and lactic acidosis has improved. No further seizure episode is noted. Lexiscan planned for a.m. due to newly diagnosed cardiomyopathy. Patient started on Coreg and lisinopril. Acute respiratory failure secondary to drug overdose Polysubstance abuse with sedation Acute metabolic encephalopathy secondary to substance abuse Cardiomyopathy with EF of 25 to 30% on echo. Acute diastolic congestive heart failure Leukocytosis rule out aspiration pneumonia Presumed seizure Elevated troponin possible and NSTEMI secondary to polysubstance abuse Systemic inflammatory response syndrome No evidence of sepsis Mixed hyperlipidemia Lactic acidosis Plan Continue supportive care. Discontinue [place] Patient has been successfully extubated Cardiology input noted anticipate ischemic work-up prior to discharge. We will continue Levaquin empiric IV although this may be discontinued in a.m. Elevated blood pressure and tachycardia likely secondary to residual effect of substance abuse and altered mental status with associated anxiety. Fluid resuscitation If no clinical improvement in mental status will obtain psych evaluation Seizure precautions DVT and GI prophylaxis History Interval history: Patient seen and examined in no acute distress, resting comfortable, awaiting cardiac work up Hospitalist Physical - Physical exam Narrative exam: VITAL SIGNS: Reviewed. GENERAL: The patient appears normally developed, MUCH IMPROVED but much improved vital signs as documented. SITTER NOTED HEAD: No signs of head trauma. EYES: Pupils are equal. EARS: Hearing is intact MOUTH: NO DEFORMITY NECK: No adenopathy, no JVD. CHEST: Chest with transmitted bronchovesicular sounds with no wheezing or rales CARDIAC: Regular rate and rhythm. S1 and S2, without murmurs, gallops, or rubs. VASCULAR: No Edema. Peripheral pulses normal and equal in all extremities. ABDOMEN: Soft, non tender and non distended. No rebound or guarding, and no masses palpated. Bowel Sounds normal. MUSCULOSKELETAL: Good range of motion of all major joints. Extremities without clubbing, cyanosis or edema. NEUROLOGIC EXAM: Alert and oriented x 3 no focal sensory or strength deficits. Speech normal. Not fully following commands PSYCHIATRIC: Mood normal SKIN: Multiple punctate lesions and abrasion detail exam as documented in skin assessment - Constitutional Vitals: Temp Pulse Resp BP Pulse Ox 98.7 F 122 H 24 132/91 99 06/21/20 12:05 06/21/20 12:05 06/21/20 12:05 06/21/20 12:05 06/21/20 12:05 General appearance: Present: no acute distress HEART Score - HEART Score Troponin: Troponin T 0.246 ng/mL (0.00-0.029) H* D 06/19/20 01:08 Results - Labs CBC & Chem 7: 06/20/20 05:35 06/19/20 04:33 Labs: Laboratory Last Values WBC 11.1 K/mm3 (4.5-11.0) H 06/19/20 04:33 RBC 4.25 M/mm3 (3.65-5.03) 06/19/20 04:33 Hgb 12.7 gm/dl (11.8-15.2) 06/20/20 05:35 Hct 37.9 % (35.5-45.6) 06/20/20 05:35 MCV 83 fl (84-94) L 06/19/20 04:33 MCH 28 pg (28-32) 06/19/20 04:33 MCHC 33 % (32-34) 06/19/20 04:33 RDW 15.5 % (13.2-15.2) H 06/19/20 04:33 Plt Count 339 K/mm3 (140-440) 06/20/20 05:35 Lymph % (Auto) 9.3 % (13.4-35.0) L 06/18/20 15:04 [place] % (Auto) 5.7 % (0.0-7.3) 06/18/20 15:04 Eos % (Auto) 0.1 % (0.0-4.3) 06/18/20 15:04 Baso % (Auto) 0.5 % (0.0-1.8) 06/18/20 15:04 Lymph # 1.6 K/mm3 (1.2-5.4) 06/18/20 15:04 [place] # 1.0 K/mm3 (0.0-0.8) H 06/18/20 15:04 Eos # 0.0 K/mm3 (0.0-0.4) 06/18/20 15:04 Baso # 0.1 K/mm3 (0.0-0.1) 06/18/20 15:04 Seg Neutrophils % 84.4 % (40.0-70.0) H 06/18/20 15:04 Seg Neutrophils # 14.9 K/mm3 (1.8-7.7) H 06/18/20 15:04 PT 12.6 Sec. (12.2-14.9) 06/18/20 15:04 INR 0.93 (0.87-1.13) 06/18/20 15:04 APTT 32.9 Sec. (24.2-36.6) 06/18/20 15:04 Heparin Anti-Xa Level < 0.10 U.I./ml (0.3-0.7) L 06/21/20 08:18 ABG pH 7.373 pH Units (7.350-7.450) 06/19/20 03:00 ABG pCO2 47.9 mm Hg 06/19/20 03:00 ABG pO2 119.8 mm Hg (80.0-90.0) H 06/19/20 03:00 ABG HCO3 27.3 mmol/L (20.0-26.0) H 06/19/20 03:00 ABG O2 Saturation 98.2 % (95.0-99.0) 06/19/20 03:00 ABG O2 Content 16.1 (0.0-44) 06/19/20 03:00 ABG Base Excess 1.5 mmol/L (-2.0-3.0) 06/19/20 03:00 ABG Hemoglobin 11.8 gm/dl (14.0-18.0) L 06/19/20 03:00 ABG Carboxyhemoglobin 1.2 % (0.0-5.0) 06/19/20 03:00 ABG Methemoglobin 0.5 % (0.0-1.5) 06/19/20 03:00 Oxyhemoglobin 96.5 % (95.0-99.0) 06/19/20 03:00 FiO2 50 % 06/19/20 03:00 Sodium 144 mmol/L (137-145) 06/19/20 04:33 Potassium 4.1 mmol/L (3.6-5.0) 06/19/20 04:33 Chloride 106.5 mmol/L (98-107) 06/19/20 04:33 Carbon Dioxide 25 mmol/L (22-30) D 06/19/20 04:33 Anion Gap 17 mmol/L 06/19/20 04:33 BUN 13 mg/dL (9-20) 06/19/20 04:33 Creatinine 0.7 mg/dL (0.8-1.3) L 06/19/20 04:33 Estimated GFR > 60 ml/min 06/19/20 04:33 BUN/Creatinine Ratio 19 % 06/19/20 04:33 Glucose 88 mg/dL (75-100) 06/19/20 04:33 POC Glucose 140 (70-105) H 06/21/20 12:19 Lactic Acid 1.70 mmol/L (0.7-2.0) 06/18/20 22:48 Calcium 8.3 mg/dL (8.4-10.2) L 06/19/20 04:33 Total Bilirubin 0.60 mg/dL (0.1-1.2) 06/19/20 04:33 AST 45 units/L (5-40) H 06/19/20 04:33 ALT 46 units/L (7-56) 06/19/20 04:33 Alkaline Phosphatase 90 units/L (35-129) 06/19/20 04:33 Ammonia 64.0 umol/L (25-60) H 06/18/20 15:04 Total Creatine Kinase 1007 units/L (55-170) H 06/19/20 01:08 CK-MB (CK-2) 16.6 ng/mL (0.0-4.0) H 06/19/20 01:08 CK-MB (CK-2) Rel Index 1.6 (0-4) 06/19/20 01:08 Troponin T 0.246 ng/mL (0.00-0.029) H* D 06/19/20 01:08 Total Protein 6.3 g/dL (6.3-8.2) D 06/19/20 04:33 Albumin 2.9 g/dL (3.9-5) L 06/19/20 04:33 Albumin/Globulin Ratio 0.9 % 06/19/20 04:33 Triglycerides 160 mg/dL (2-149) H 06/18/20 14:36 Cholesterol 146 mg/dL (50-199) 06/18/20 14:36 LDL Cholesterol Direct 87 mg/dL (50-130) 06/18/20 14:36 HDL Cholesterol 49 mg/dL (40-59) 06/18/20 14:36 Cholesterol/HDL Ratio 2.97 % 06/18/20 14:36 TSH 0.743 mlU/mL (0.270-4.200) 06/18/20 14:36 Urine Color Yellow (Yellow) 06/18/20 13:38 Urine Turbidity Clear (Clear) 06/18/20 13:38 Urine pH 5.0 (5.0-7.0) 06/18/20 13:38 Ur Specific [place] 1.024 (1.003-1.030) 06/18/20 13:38 Urine Protein <15 mg/dl mg/dL (Negative) 06/18/20 13:38 Urine Glucose (UA) Neg mg/dL (Negative) 06/18/20 13:38 Urine Ketones Tr mg/dL (Negative) 06/18/20 13:38 Urine Blood Sm (Negative) 06/18/20 13:38 Urine Nitrite Neg (Negative) 06/18/20 13:38 Urine Bilirubin Neg (Negative) 06/18/20 13:38 Urine Urobilinogen 2.0 mg/dL (<2.0) 06/18/20 13:38 Ur Leukocyte Esterase Neg (Negative) 06/18/20 13:38 Urine WBC (Auto) 3.0 /HPF (0.0-6.0) 06/18/20 13:38 Urine RBC (Auto) 4.0 /HPF (0.0-6.0) 06/18/20 13:38 Urine Bacteria (Auto) 2+ /HPF (Negative) 06/18/20 13:38 Nasal Screen MRSA (PCR) Positive (Negative) 06/19/20 08:50 Salicylates < 0.3 mg/dL (2.8-20.0) L 06/18/20 14:36 Urine Opiates Screen Presumptive positive 06/18/20 13:38 Urine Methadone Screen Presumptive negative 06/18/20 13:38 Acetaminophen < 5.0 ug/mL (10.0-30.0) L 06/18/20 14:36 Ur Barbiturates Screen Presumptive negative 06/18/20 13:38 Ur Phencyclidine Scrn Presumptive negative 06/18/20 13:38 Ur Amphetamines Screen Presumptive positive 06/18/20 13:38 U Benzodiazepines Scrn Presumptive negative 06/18/20 13:38 Urine Cocaine Screen Presumptive positive 06/18/20 13:38 U Marijuana (THC) Screen Presumptive positive 06/18/20 13:38 Drugs of Abuse Note Disclamer 06/18/20 13:38 Plasma/Serum Alcohol < 0.01 % (0-0.07) 06/18/20 14:36 Microbiology: Microbiology 06/18/20 Unknown Peripheral/Venous Blood Culture - Preliminary NO GROWTH AFTER 48 HOURS 06/18/20 15:07 Peripheral/Venous Blood Culture - Preliminary NO GROWTH AFTER 48 HOURS - Diagnostic Impressions Diagnostic Impressions: Echocardiogram 06/18/20 16:54 Transthoracic Echocardiogram Indication: Chest pain BP: 154/93 HR: 102 Conclusions *Mild concentric left ventricular hypertrophy is observed. *Global left ventricular systolic function is moderate to severely decreased. *The estimated ejection fraction is 25-30%. The anterior wall segment is hypokinetic. *Abnormal left ventricular diastolic filling is observed, consistent with impaired relaxation. *There is no pericardial effusion. Findings Left Ventricle: The left ventricular chamber size is normal. Mild concentric left ventricular hypertrophy is observed. Global left ventricular systolic function is moderate to severely decreased. The estimated ejection fraction is 25-30%. The anterior wall segment is hypokinetic. Abnormal left ventricular diastolic filling is observed, consistent with impaired relaxation. Left Atrium: The left atrial chamber size is normal. Right Ventricle: The right ventricular cavity size is normal. Right Atrium: The right atrial cavity size is normal. Aortic Valve: The aortic valve structure is normal. There is no evidence of aortic regurgitation. Mitral Valve: The mitral valve leaflets are mildly thickened. There is no evidence of mitral regurgitation. Tricuspid Valve: The tricuspid valve leaflets are normal. There is no evidence of tricuspid valve regurgitation. Pulmonic Valve: The pulmonic valve appears normal. There is trace pulmonic regurgitation. Pericardium: There is no pericardial effusion. Venous: The inferior vena cava appears normal in size. Measurements Chambers 2D Name Value Normal Range IVSd (2D) 1.21 cm (0.6 - 1.1) LVPWd (2D) 1.05 cm (0.6 - 1.1) LVIDd (2D) 4.76 cm (3.7 - 5.6) LVIDs (2D) 3.92 cm (2 - 3.8) LV FS (2D) 17.6 % - EF Teichholz (2D) 36.63 % - Ao root diameter (2D) 3.79 cm (2 - 3.7) Volumes/Mass Name Value Normal Range LA ESV SP 4CH (A/L) 19.26 ml - LA ESV SP 2CH (A/L) 15.3 ml - LA ESV BP (A/L) 18.22 ml - LA ESV BP (A/L) index 11.04 ml/m2 - LA ESV SP 4CH (MOD) 16.91 ml - LA ESV SP 2CH (MOD) 14.18 ml - LA ESV BP (MOD) 16.27 ml - LA ESV BP (MOD) index 9.86 ml/m2 - Diastolic/Systolic Function Name Value Normal Range MV E-wave Vmax 0.37 m/sec - MV deceleration time 238.43 msec - MV A-wave Vmax 0.56 m/sec - MV E:A ratio 0.66 ratio - Aortic Valve Name Value Normal Range AV Vmax 0.94 m/sec - AV VTI 15.33 cm - AV peak gradient 3.52 mmHg - AV mean gradient 2.22 mmHg - LVOT diameter 2.07 cm - LVOT Vmax 0.84 m/sec - LVOT VTI 15.53 cm - LVOT peak gradient 2.8 mmHg - LVOT mean gradient 1.9 mmHg - SV LVOT 52.45 ml - EUGENE (continuity Vmax) 3.01 cm2 - EUGENE (continuity VTI) 3.42 cm2 - Pulmonic Valve/Qp:Qs Name Value Normal Range PV Vmax 0.89 m/sec - PV peak gradient 3.16 mmHg - PV acceleration time 114.18 msec - [place]/IV: Voiding Method Condom Catheter IV Catheter Type [Right Upper INT / Saline Lock arm] IV Catheter Type [Left INT / Saline Lock External Jugular] IV Catheter Type [Left Upper INT / Saline Lock arm] Active Medications - Current Medications Current Medications: Generic Name Dose Route Start Last Admin Trade Name Freq PRN Reason Stop Dose Admin Acetaminophen 650 mg 06/18/20 16:46 06/20/20 22:52 Tylenol PO 650 mg Q6H PRN Administration Pain MILD(1-3)/Fever >100.5/ROD Aspirin 325 mg 06/21/20 12:00 Aspirin PO QDAY LILIAN Atorvastatin Calcium 40 mg 06/21/20 22:00 Lipitor PO QHS LILIAN Carvedilol 6.25 mg 06/21/20 12:00 Coreg PO BID LILIAN Dextrose 25 ml 06/20/20 07:10 D50w (25gm) Syringe IV Q30MIN PRN Hypoglycemia Protocol Divalproex Sodium 125 mg 06/20/20 15:00 06/21/20 11:[address] PO 125 mg BID LILIAN Administration Sodium Chloride 1,000 mls @ 150 mls/hr 06/18/20 17:00 06/21/20 07:48 Nacl 0.9% 1000 Ml IV 150 mls/hr DIRECT LILIAN Administration Levofloxacin/Dextrose 750 mg in 150 mls @ 100 mls/hr 06/18/20 18:00 06/21/20 11:06 Levaquin 750mg/150ml IV 09/03/20 17:59 100 mls/hr Q24HR LILIAN Administration Protocol Lisinopril 10 mg 06/21/20 12:00 Zestril PO QDAY LILIAN Lorazepam 2 mg 06/19/20 16:51 06/21/20 11:05 Ativan IV 2 mg Q4H PRN Administration Agitation Naloxone HCl 0.1 mg 06/18/20 16:49 Naloxone IV Q2MIN PRN Res Rate </= 8 or 02 SAT < 92% Olanzapine 2.5 mg 06/20/20 15:00 06/21/20 11:05 Zyprexa PO 2.5 mg QDAY LILIAN Administration Ondansetron HCl 4 mg 06/21/20 03:33 06/21/20 03:48 Zofran IV 4 mg Q4H PRN Administration Nausea Senna 8.6 mg 06/18/20 22:00 06/21/20 11:05 Senokot PO 8.6 mg BID LILIAN Administration Sodium Chloride 10 ml 06/18/20 22:00 06/21/20 11:07 Sodium Chloride Flush Syringe 10 Ml IV 10 ml BID LILIAN Administration Sodium Chloride 10 ml 06/18/20 16:46 Sodium Chloride Flush Syringe 10 Ml IV PRN PRN LINE FLUSH Trazodone HCl 50 mg 06/20/20 22:00 06/20/20 22:51 Desyrel PO 50 mg QHS LILIAN Administration Ziprasidone 20 mg 06/20/20 14:48 Geodon IM Q6H PRN Agitation Nutrition/Malnutrition Assess - Dietary Evaluation Nutrition/Malnutrition Findings: Nutrition Notes Start: 06/19/20 10:27 Freq: Status: Active Protocol: Document 06/19/20 10:27 LP (Rec: 06/19/20 10:33 LP [id number]) Nutrition Notes Need for Assessment generated from: MD Order Initial or Follow up Assessment Current Diagnosis Respiratory Failure Other Pertinent Diagnosis polysubstance abuse Current Diet NPO Labs/Tests Reviewed Pertinent Medications Propofol Height 5 ft 8 in Weight 55.2 kg [place] Body Weight (kg) 70.00 BMI 18.5 Weight Status Underweight Subjective/Other Information Consult for evaluation of nutrition intakes. Pt on vent. Burn Absent Trauma Absent GI Symptoms None Current % PO Negligible Minimum of two criteria No physical signs of malnutrition #1 Nutrition Diagnosis Inadequate oral intake Etiology ARF As Evidenced by Signs and Symptoms Pt on vent and unable to consume PO Is patient on ventilator? Yes Is Patient Ambulatory and/or Out of Bed No REE-([facility]-confined to bed) [phone] Calculation Used for Recommendations [facility] Additional Notes Protein needs are 66-110g (1.2 -2g/kg) Fluid needs are 1ml/kcal Nutrition Intervention Change Diet Order: TF consult or extubation Nutrition Support: Once consulted Vital 1.2 at 60ml/hr Flush with 100ml q4h Kcal 1,728 Protein (gm) 108 Fluid (mL) 1,163 Goal #1 TF consult or extubation Anticipated Discharge Needs: Unable to determine at this time Follow-Up By: 06/22/20 Additional Comments Follow for TF consult or extubation
[2020-06-21] MEDS: ZIPRASIDONE MESYLATE 20 MG VIAL IM PRN ×2 (14:20→14:45)
[2020-06-21] MEDS: ASPIRIN 325 MG TAB PO SCH (14:21)
[2020-06-21] MEDS: carvediloL 6.25 MG TAB PO SCH ×2 (14:22→21:52)
[2020-06-21] MEDS: LISINOPRIL 10 MG TAB PO SCH (14:23)
[2020-06-21] MEDS ORDERED: WATER FOR INJ Sterile (PF) 10 ML IM ONE (14:31)
--- NOTE | 2020-06-21 15:01 | Progress Note ---
Subjective - Reason for Consult Consult date: 06/21/20 Reason for consult: OD - Chief Complaint Chief complaint: The patient's medical record was reviewed and the patient's progress was discussed with the nursing staff. The sitter at bedside says the patient has been asking to go home, and restless. She says he's been cooperative otherwise. The nurse note states the patient pulling out INT, Heparin IV and getting out of bed. Patient have unsteady gait During my interview with the patient he is lying in bed awake. His restraints are off. A sitter is at bedside. The patient is a/o x 2. He is irritable and restless. He is easily agitated. He asks me if he can go home. The patient denies SI/HI. He states, "I didn't try to kill myself, I was trying to get high." He says, "I've never tried to do a thing like that." He says, "if I really wanted to kill myself don't you think I'd done it by now." The patient denies hallucinations of any kind. REVIEW OF SYSTEMS Constitutional: Negative for weight loss ENT: Negative for stridor Respiratory: Negative for cough or hemoptysis All other systems reviewed and are negative MSE Appearance: Wearing appropriate clothing. Behavior: irritable, anxious, easily agitated Mood: Affect: Restricted Thought Process: Goal directed Speech: increased tone, normal pace Thought Content Suicidal: Denies Homicidal: Denies Hallucinations: Denies Delusions: none elicited Consciousness: alert. Cognition/Memory: Limited Insight/Judgment: Impaired Diagnoses: Acute Psychosis Polysubstance Dependance Treatment Plan Increased Olanzapine 5mg po daily Increased Depakote 250mg po BID Start Klonopin 0.25mg po BID Sitter: Defer to primary Medical: Per primary Disposition: Recommend acute inpatient psychiatric treatment Will follow. Thank you for this consult. Mental Status Exam - Vital signs Last Vital Signs Temp 98.7 F 06/21/20 12:05 Pulse 122 H 06/21/20 12:05 Resp 24 06/21/20 12:05 BP 132/91 06/21/20 12:05 Pulse Ox 99 06/21/20 12:05
[2020-06-21] MEDS: clonazePAM 0.5 MG TAB PO SCH (21:51)
[2020-06-21] MEDS: DIVALPROEX DR 250 MG TAB PO SCH (21:52)
[2020-06-21] MEDS: traZODone 50 MG TAB PO SCH (21:52)
[2020-06-22] MEDS: LORazepam 2 MG/ML VIAL IV PRN ×3 (00:48→19:30)
[2020-06-22] MEDS: clonazePAM 0.5 MG TAB PO SCH ×3 (08:18→21:22)
[2020-06-22 08:24] LABS: Hematocrit 38.8 % (35.5-45.6); Hemoglobin 12.9 gm/dl (11.8-15.2)
[2020-06-22] MEDS ORDERED: LORazepam 2 MG/ML VIAL IV ONE (08:56)
--- NOTE | 2020-06-22 09:37 | Discharge Summary ---
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 According to information or review of records patient had an acquaintance who states that the patient uses drugs. EMS attempted to administer Narcan 4 mg in route and noted about a 45 seconds seizure-like activity which was shortly after the Narcan was given and resolved. Otherwise patient was unarousable and intubated for airway protection. There were also many unidentified pills laying around the patient unknown if the patient had taken those medications. He is currently intubated at the time of my evaluation imaging studies are unremarkable except for CT head which shows a possible left anterior maxillary sinus wall fracture. Laboratory studies shows mild elevated troponin and leukocytosis. Chest x-ray; IMPRESSION: Endotracheal tube is present and appears to be in good position. No acute pulmonary or pleural abnormality Unresponsive state, Polysubstance abuse, Elevated troponin, Lactic acidosis CT cervical spine: IMPRESSION: 1. No acute fracture or subluxation in the spine in neutral position. CT head: IMPRESSION: 1. No acute intracranial abnormality. 2. Possible left maxillary sinus fracture. Further evaluation with maxillofacial CT recommended. 06/20: Clinical improving, discontinue restraints. Anticipate discharge in am pending cardiac work up 06/21: Patient awaiting cardiac work-up. Psych input is noted patient now on a 1013 recommend an inpatient psych placement. Leukocytosis and lactic acidosis has improved. No further seizure episode is noted. Lexiscan planned for a.m. due to newly diagnosed cardiomyopathy. Patient started on Coreg and lisinopril. 06/22: Patient is clinically stable for discharge to inpatient psych. Although still with some unsteady gait he is able to maintain posture. He is alert awake oriented times 3 at night he does experience some sundowning episodes. Psych input is noted with adjustment of medication. Acute Psychosis Polysubstance Dependance Treatment Plan Increased Olanzapine 5mg po daily Increased Depakote 250mg po BID Start Klonopin 0.25mg po BID Acute respiratory failure secondary to drug overdose Polysubstance abuse with sedation Acute metabolic encephalopathy secondary to substance abuse Cardiomyopathy with EF of 25 to 30% on echo. Acute diastolic congestive heart failure Leukocytosis rule out aspiration pneumonia Presumed seizure Elevated troponin possible and NSTEMI secondary to polysubstance abuse Systemic inflammatory response syndrome No evidence of sepsis Mixed hyperlipidemia Lactic acidosis Disposition: DC/TX-65 PSY HOSP/PSY UNIT Time spent for discharge: 35 MINS Exam - Constitutional Vitals: Temp Pulse Resp BP Pulse Ox 98.6 F 94 H 20 120/86 100 06/22/20 04:00 06/22/20 04:00 06/22/20 04:00 06/22/20 04:00 06/22/20 04:00 Plan Activity: advance as tolerated, fall precautions Diet: low fat Special Instructions: smoking cessation, other (Must avoid substance abuse, enroll in drug rehabilitation program) Follow up with: PRIMARY CARE, [facility] Prescriptions: traZODone [Desyrel] 50 mg PO QHS #30 tablet AtorvaSTATin [Lipitor] 40 mg PO QHS #30 tablet carvediloL [Coreg] 6.25 mg PO BID #[address] [Depakote Dr] 250 mg PO BID #60 tablet clonazePAM [KlonoPIN] 0.25 mg PO BID #30 tablet Albuterol Mdi (or & Nicu Only) [ProAir HFA Inhaler] 2 puff IH QID PRN #8.5 gram PRN Reason: Shortness Of Breath lisinopriL [Zestril TAB] 10 mg PO QDAY #30 tablet OLANzapine [ZyPREXA] 5 mg PO QDAY #30 tablet
--- NOTE | 2020-06-22 09:42 | Progress Note ---
Assessment and Plan Assessment and plan: Patient is a 34-year-old male with past medical history of drug use prior history in 2014 of 1013 which was rescinded at the time shortly after presents to the ED via EMS after found unresponsive along tremor tracks and pulmonary studies showing multiple drugs in his system including PCP, cocaine, THC, o pioids. According to information or review of records patient had an acquaintance who states that the patient uses drugs. EMS attempted to administer Narcan 4 mg in route and noted about a 45 seconds seizure-like activity which was shortly after the Narcan was given and resolved. Otherwise patient was unarousable and intubated for airway protection. There were also many unidentified pills laying around the patient unknown if the patient had taken those medications. He is currently intubated at the time of my evaluation imaging studies are unremarkable except for CT head which shows a possible left anterior maxillary sinus wall fracture. Laboratory studies shows mild elevated troponin and leukocytosis. Chest x-ray; IMPRESSION: Endotracheal tube is present and appears to be in good position. No acute pulmonary or pleural abnormality Unresponsive state, Polysubstance abuse, Elevated troponin, Lactic acidosis CT cervical spine: IMPRESSION: 1. No acute fracture or subluxation in the spine in neutral position. CT head: IMPRESSION: 1. No acute intracranial abnormality. 2. Possible left maxillary sinus fracture. Further evaluation with maxillofacial CT recommended. 06/20: Clinical improving, discontinue restraints. Anticipate discharge in am pending cardiac work up 06/21: Patient awaiting cardiac work-up. Psych input is noted patient now on a 1013 recommend an inpatient psych placement. Leukocytosis and lactic acidosis has improved. No further seizure episode is noted. Lexiscan planned for a.m. due to newly diagnosed cardiomyopathy. Patient started on Coreg and lisinopril. 06/22: Awaiting cardiomyopathy work up. Continues with intermittent owing at night and unsteady gait but otherwise awake and oriented x3 Psych input is noted with adjustment of medication. Acute respiratory failure secondary to drug overdose Polysubstance abuse with sedation Acute metabolic encephalopathy secondary to substance abuse Cardiomyopathy with EF of 25 to 30% on echo. Acute diastolic congestive heart failure Leukocytosis rule out aspiration pneumonia Presumed seizure Elevated troponin possible and NSTEMI secondary to polysubstance abuse Systemic inflammatory response syndrome No evidence of sepsis Mixed hyperlipidemia Lactic acidosis Moderate protein calorie malnutrition with cachexia: Dietitian following Plan Continue supportive care. Discontinue [place] Patient has been successfully extubated Cardiology input noted anticipate ischemic work-up prior to discharge. Discontinue abx. Elevated blood pressure and tachycardia likely secondary to residual effect of substance abuse and altered mental status with associated anxiety. Fluid resuscitation If no clinical improvement in mental status will obtain psych evaluation Seizure precautions DVT and GI prophylaxis History Interval history: Patient seen and examined in no acute distress, intermittent confusion. Awaiting cardiac work-up. Hospitalist Physical - Physical exam Narrative exam: VITAL SIGNS: Reviewed. GENERAL: The patient appears normally developed, cachectic MUCH IMPROVED but much improved vital signs as documented. SITTER NOTED HEAD: No signs of head trauma. EYES: Pupils are equal. EARS: Hearing is intact MOUTH: NO DEFORMITY NECK: No adenopathy, no JVD. CHEST: Chest with transmitted bronchovesicular sounds with no wheezing or rales CARDIAC: Regular rate and rhythm. S1 and S2, without murmurs, gallops, or rubs. VASCULAR: No Edema. Peripheral pulses normal and equal in all extremities. ABDOMEN: Soft, non tender and non distended. No rebound or guarding, and no masses palpated. Bowel Sounds normal. MUSCULOSKELETAL: Good range of motion of all major joints. Extremities without clubbing, cyanosis or edema. NEUROLOGIC EXAM: Alert and oriented x 3 no focal sensory or strength deficits. Speech normal. Not fully following commands PSYCHIATRIC: Mood normal SKIN: Multiple punctate lesions and abrasion detail exam as documented in skin assessment - Constitutional Vitals: Temp Pulse Resp BP Pulse Ox 98.6 F 94 H 20 120/86 100 06/22/20 04:00 06/22/20 04:00 06/22/20 04:00 06/22/20 04:00 06/22/20 04:00 General appearance: Present: no acute distress HEART Score - HEART Score Troponin: Troponin T < 0.010 ng/mL (0.00-0.029) 06/22/20 07:48 Results - Labs CBC & Chem 7: 06/22/20 07:48 06/19/20 04:33 Labs: Laboratory Last Values WBC 11.1 K/mm3 (4.5-11.0) H 06/19/20 04:33 RBC 4.25 M/mm3 (3.65-5.03) 06/19/20 04:33 Hgb 12.9 gm/dl (11.8-15.2) 06/22/20 07:48 Hct 38.8 % (35.5-45.6) 06/22/20 07:48 MCV 83 fl (84-94) L 06/19/20 04:33 MCH 28 pg (28-32) 06/19/20 04:33 MCHC 33 % (32-34) 06/19/20 04:33 RDW 15.5 % (13.2-15.2) H 06/19/20 04:33 Plt Count 394 K/mm3 (140-440) 06/22/20 07:48 Lymph % (Auto) 9.3 % (13.4-35.0) L 06/18/20 15:04 [place] % (Auto) 5.7 % (0.0-7.3) 06/18/20 15:04 Eos % (Auto) 0.1 % (0.0-4.3) 06/18/20 15:04 Baso % (Auto) 0.5 % (0.0-1.8) 06/18/20 15:04 Lymph # 1.6 K/mm3 (1.2-5.4) 06/18/20 15:04 [place] # 1.0 K/mm3 (0.0-0.8) H 06/18/20 15:04 Eos # 0.0 K/mm3 (0.0-0.4) 06/18/20 15:04 Baso # 0.1 K/mm3 (0.0-0.1) 06/18/20 15:04 Seg Neutrophils % 84.4 % (40.0-70.0) H 06/18/20 15:04 Seg Neutrophils # 14.9 K/mm3 (1.8-7.7) H 06/18/20 15:04 PT 12.6 Sec. (12.2-14.9) 06/18/20 15:04 INR 0.93 (0.87-1.13) 06/18/20 15:04 APTT 32.9 Sec. (24.2-36.6) 06/18/20 15:04 Heparin Anti-Xa Level < 0.10 U.I./ml (0.3-0.7) L 06/21/20 08:18 ABG pH 7.373 pH Units (7.350-7.450) 06/19/20 03:00 ABG pCO2 47.9 mm Hg 06/19/20 03:00 ABG pO2 119.8 mm Hg (80.0-90.0) H 06/19/20 03:00 ABG HCO3 27.3 mmol/L (20.0-26.0) H 06/19/20 03:00 ABG O2 Saturation 98.2 % (95.0-99.0) 06/19/20 03:00 ABG O2 Content 16.1 (0.0-44) 06/19/20 03:00 ABG Base Excess 1.5 mmol/L (-2.0-3.0) 06/19/20 03:00 ABG Hemoglobin 11.8 gm/dl (14.0-18.0) L 06/19/20 03:00 ABG Carboxyhemoglobin 1.2 % (0.0-5.0) 06/19/20 03:00 ABG Methemoglobin 0.5 % (0.0-1.5) 06/19/20 03:00 Oxyhemoglobin 96.5 % (95.0-99.0) 06/19/20 03:00 FiO2 50 % 06/19/20 03:00 Sodium 144 mmol/L (137-145) 06/19/20 04:33 Potassium 4.1 mmol/L (3.6-5.0) 06/19/20 04:33 Chloride 106.5 mmol/L (98-107) 06/19/20 04:33 Carbon Dioxide 25 mmol/L (22-30) D 06/19/20 04:33 Anion Gap 17 mmol/L 06/19/20 04:33 BUN 13 mg/dL (9-20) 06/19/20 04:33 Creatinine 0.7 mg/dL (0.8-1.3) L 06/19/20 04:33 Estimated GFR > 60 ml/min 06/19/20 04:33 BUN/Creatinine Ratio 19 % 06/19/20 04:33 Glucose 88 mg/dL (75-100) 06/19/20 04:33 POC Glucose 100 (70-105) 06/21/20 16:45 Lactic Acid 1.70 mmol/L (0.7-2.0) 06/18/20 22:48 Calcium 8.3 mg/dL (8.4-10.2) L 06/19/20 04:33 Total Bilirubin 0.60 mg/dL (0.1-1.2) 06/19/20 04:33 AST 45 units/L (5-40) H 06/19/20 04:33 ALT 46 units/L (7-56) 06/19/20 04:33 Alkaline Phosphatase 90 units/L (35-129) 06/19/20 04:33 Ammonia 64.0 umol/L (25-60) H 06/18/20 15:04 Total Creatine Kinase 1007 units/L (55-170) H 06/19/20 01:08 CK-MB (CK-2) 16.6 ng/mL (0.0-4.0) H 06/19/20 01:08 CK-MB (CK-2) Rel Index 1.6 (0-4) 06/19/20 01:08 Troponin T < 0.010 ng/mL (0.00-0.029) 06/22/20 07:48 Total Protein 6.3 g/dL (6.3-8.2) D 06/19/20 04:33 Albumin 2.9 g/dL (3.9-5) L 06/19/20 04:33 Albumin/Globulin Ratio 0.9 % 06/19/20 04:33 Triglycerides 160 mg/dL (2-149) H 06/18/20 14:36 Cholesterol 146 mg/dL (50-199) 06/18/20 14:36 LDL Cholesterol Direct 87 mg/dL (50-130) 06/18/20 14:36 HDL Cholesterol 49 mg/dL (40-59) 06/18/20 14:36 Cholesterol/HDL Ratio 2.97 % 06/18/20 14:36 TSH 0.743 mlU/mL (0.270-4.200) 06/18/20 14:36 Urine Color Yellow (Yellow) 06/18/20 13:38 Urine Turbidity Clear (Clear) 06/18/20 13:38 Urine pH 5.0 (5.0-7.0) 06/18/20 13:38 Ur Specific [place] 1.024 (1.003-1.030) 06/18/20 13:38 Urine Protein <15 mg/dl mg/dL (Negative) 06/18/20 13:38 Urine Glucose (UA) Neg mg/dL (Negative) 06/18/20 13:38 Urine Ketones Tr mg/dL (Negative) 06/18/20 13:38 Urine Blood Sm (Negative) 06/18/20 13:38 Urine Nitrite Neg (Negative) 06/18/20 13:38 Urine Bilirubin Neg (Negative) 06/18/20 13:38 Urine Urobilinogen 2.0 mg/dL (<2.0) 06/18/20 13:38 Ur Leukocyte Esterase Neg (Negative) 06/18/20 13:38 Urine WBC (Auto) 3.0 /HPF (0.0-6.0) 06/18/20 13:38 Urine RBC (Auto) 4.0 /HPF (0.0-6.0) 06/18/20 13:38 Urine Bacteria (Auto) 2+ /HPF (Negative) 06/18/20 13:38 Nasal Screen MRSA (PCR) Positive (Negative) 06/19/20 08:50 Salicylates < 0.3 mg/dL (2.8-20.0) L 06/18/20 14:36 Urine Opiates Screen Presumptive positive 06/18/20 13:38 Urine Methadone Screen Presumptive negative 06/18/20 13:38 Acetaminophen < 5.0 ug/mL (10.0-30.0) L 06/18/20 14:36 Ur Barbiturates Screen Presumptive negative 06/18/20 13:38 Ur Phencyclidine Scrn Presumptive negative 06/18/20 13:38 Ur Amphetamines Screen Presumptive positive 06/18/20 13:38 U Benzodiazepines Scrn Presumptive negative 06/18/20 13:38 Urine Cocaine Screen Presumptive positive 06/18/20 13:38 U Marijuana (THC) Screen Presumptive positive 06/18/20 13:38 Drugs of Abuse Note Disclamer 06/18/20 13:38 Plasma/Serum Alcohol < 0.01 % (0-0.07) 06/18/20 14:36 Microbiology: Microbiology 06/18/20 Unknown Peripheral/Venous Blood Culture - Preliminary NO GROWTH AFTER 72 HOURS 06/18/20 15:07 Peripheral/Venous Blood Culture - Preliminary NO GROWTH AFTER 72 HOURS - Diagnostic Impressions Diagnostic Impressions: Echocardiogram 06/18/20 16:54 Transthoracic Echocardiogram Indication: Chest pain BP: 154/93 HR: 102 Conclusions *Mild concentric left ventricular hypertrophy is observed. *Global left ventricular systolic function is moderate to severely decreased. *The estimated ejection fraction is 25-30%. The anterior wall segment is hypokinetic. *Abnormal left ventricular diastolic filling is observed, consistent with impaired relaxation. *There is no pericardial effusion. Findings Left Ventricle: The left ventricular chamber size is normal. Mild concentric left ventricular hypertrophy is observed. Global left ventricular systolic function is moderate to severely decreased. The estimated ejection fraction is 25-30%. The anterior wall segment is hypokinetic. Abnormal left ventricular diastolic filling is observed, consistent with impaired relaxation. Left Atrium: The left atrial chamber size is normal. Right Ventricle: The right ventricular cavity size is normal. Right Atrium: The right atrial cavity size is normal. Aortic Valve: The aortic valve structure is normal. There is no evidence of aortic regurgitation. Mitral Valve: The mitral valve leaflets are mildly thickened. There is no evidence of mitral regurgitation. Tricuspid Valve: The tricuspid valve leaflets are normal. There is no evidence of tricuspid valve regurgitation. Pulmonic Valve: The pulmonic valve appears normal. There is trace pulmonic regurgitation. Pericardium: There is no pericardial effusion. Venous: The inferior vena cava appears normal in size. Measurements Chambers 2D Name Value Normal Range IVSd (2D) 1.21 cm (0.6 - 1.1) LVPWd (2D) 1.05 cm (0.6 - 1.1) LVIDd (2D) 4.76 cm (3.7 - 5.6) LVIDs (2D) 3.92 cm (2 - 3.8) LV FS (2D) 17.6 % - EF Teichholz (2D) 36.63 % - Ao root diameter (2D) 3.79 cm (2 - 3.7) Volumes/Mass Name Value Normal Range LA ESV SP 4CH (A/L) 19.26 ml - LA ESV SP 2CH (A/L) 15.3 ml - LA ESV BP (A/L) 18.22 ml - LA ESV BP (A/L) index 11.04 ml/m2 - LA ESV SP 4CH (MOD) 16.91 ml - LA ESV SP 2CH (MOD) 14.18 ml - LA ESV BP (MOD) 16.27 ml - LA ESV BP (MOD) index 9.86 ml/m2 - Diastolic/Systolic Function Name Value Normal Range MV E-wave Vmax 0.37 m/sec - MV deceleration time 238.43 msec - MV A-wave Vmax 0.56 m/sec - MV E:A ratio 0.66 ratio - Aortic Valve Name Value Normal Range AV Vmax 0.94 m/sec - AV VTI 15.33 cm - AV peak gradient 3.52 mmHg - AV mean gradient 2.22 mmHg - LVOT diameter 2.07 cm - LVOT Vmax 0.84 m/sec - LVOT VTI 15.53 cm - LVOT peak gradient 2.8 mmHg - LVOT mean gradient 1.9 mmHg - SV LVOT 52.45 ml - EUGENE (continuity Vmax) 3.01 cm2 - EUGENE (continuity VTI) 3.42 cm2 - Pulmonic Valve/Qp:Qs Name Value Normal Range PV Vmax 0.89 m/sec - PV peak gradient 3.16 mmHg - PV acceleration time 114.18 msec - [place]/IV: Voiding Method Incontinent IV Catheter Type [Right Upper INT / Saline Lock arm] IV Catheter Type [Left INT / Saline Lock External Jugular] IV Catheter Type [Left Upper INT / Saline Lock arm] Active Medications - Current Medications Current Medications: Generic Name Dose Route Start Last Admin Trade Name Freq PRN Reason Stop Dose Admin Acetaminophen 650 mg 06/18/20 16:46 06/20/20 22:52 Tylenol PO 650 mg Q6H PRN Administration Pain MILD(1-3)/Fever >100.5/ROD Aspirin 325 mg 06/21/20 12:00 06/21/20 14:21 Aspirin PO 325 mg QDAY LILIAN Administration Atorvastatin Calcium 40 mg 06/21/20 22:00 06/21/20 21:52 Lipitor PO 40 mg QHS LILIAN Administration Carvedilol 6.25 mg 06/21/20 12:00 06/21/20 21:52 Coreg PO 6.25 mg BID LILIAN Administration Clonazepam 0.25 mg 06/21/20 16:00 06/22/20 08:18 Klonopin PO Not Given BID LILIAN Dextrose 25 ml 06/20/20 07:10 D50w (25gm) Syringe IV Q30MIN PRN Hypoglycemia Protocol Divalproex Sodium 250 mg 06/21/20 22:00 06/21/20 21:[address] PO 250 mg BID LILIAN Administration Sodium Chloride 1,000 mls @ 150 mls/hr 06/18/20 17:00 06/21/20 07:48 Nacl 0.9% 1000 Ml IV 150 mls/hr DIRECT LILIAN Administration Levofloxacin/Dextrose 750 mg in 150 mls @ 100 mls/hr 06/18/20 18:00 06/21/20 11:06 Levaquin 750mg/150ml IV 06/24/20 17:59 100 mls/hr Q24HR LILIAN Administration Protocol Lisinopril 10 mg 06/21/20 12:00 06/21/20 14:23 Zestril PO 10 mg QDAY LILIAN Administration Lorazepam 2 mg 06/19/20 16:51 06/22/20 08:20 Ativan IV 2 mg Q4H PRN Administration Agitation Naloxone HCl 0.1 mg 06/18/20 16:49 Naloxone IV Q2MIN PRN Res Rate </= 8 or 02 SAT < 92% Olanzapine 5 mg 06/22/20 10:00 Zyprexa PO QDAY LILIAN Ondansetron HCl 4 mg 06/21/20 03:33 06/21/20 03:48 Zofran IV 4 mg Q4H PRN Administration Nausea Senna 8.6 mg 06/18/20 22:00 06/21/20 21:52 Senokot PO 8.6 mg BID LILIAN Administration Sodium Chloride 10 ml 06/18/20 22:00 06/21/20 21:53 Sodium Chloride Flush Syringe 10 Ml IV 10 ml BID LILIAN Administration Sodium Chloride 10 ml 06/18/20 16:46 Sodium Chloride Flush Syringe 10 Ml IV PRN PRN LINE FLUSH Trazodone HCl 50 mg 06/20/20 22:00 06/21/20 21:52 Desyrel PO 50 mg QHS LILIAN Administration Ziprasidone 20 mg 06/20/20 14:48 06/21/20 14:45 Geodon IM 20 mg Q6H PRN Administration Agitation Nutrition/Malnutrition Assess - Dietary Evaluation Nutrition/Malnutrition Findings: Nutrition Notes Start: 06/19/20 10:27 Freq: Status: Active Protocol: Document 06/21/20 13:00 LM (Rec: 06/21/20 13:06 LM [id number]) Nutrition Notes Need for Assessment generated from: Low BMI Initial or Follow up Reassessment Current Diagnosis Respiratory Failure Other Pertinent Diagnosis polysubstance abuse Current Diet Regular Labs/Tests Reviewed Pertinent Medications Reviewed Height 5 ft 8 in Weight 55 kg [place] Body Weight (kg) 70.00 BMI 18.4 Weight Status Underweight Subjective/Other Information Screen for low BMI. Already following pt. Pt extubated and diet advanced. Pt did not answer phone. Pt has 75% intakes for breakfast and lunch in chart. Percent of energy/protein needs met: 100%/100% Burn Absent Trauma Absent GI Symptoms None Current % PO Good (75-100%) Minimum of two criteria No physical signs of malnutrition #1 Nutrition Diagnosis Inadequate oral intake As Evidenced by Signs and Symptoms pt eating 75% of meals Diagnosis Progress(for reassessment Resolved documentation) Is patient on ventilator? No Is Patient Ambulatory and/or Out of Bed No REE-([facility]-confined to bed) 1754.100 [facility]culation [facility] Additional Notes Protein: 44-55g/kg Fluid: 1ml/kcal Nutrition Intervention Change Diet Order: continue Goal #1 Meet at least 80% of energy and protein needs Goal #2 Wt gain/maintenance Anticipated Discharge Needs: cardiac Follow-Up By: 06/25/20 Additional Comments F/U for stable intakes
--- NOTE | 2020-06-22 10:28 | Progress Note ---
Assessment and Plan tte reviewed - EF 25-30%, mild LVH, anterior wall hypokinetic, impaired relaxation. No apparent clinical evidence of acutely decompensated HF. Cont coreg and lisinopril. Suspect NSTEMI type II in the setting of polysubstance abuse/overdose. S/p heparin gtt for >48Hr. Cont ASA 325 and statin. Pt is agitated and combative today, unable to perform stress testing. Will tentatively rescheduled stress test for tomorrow AM. NPO after MN. Pt seen in conjunction with Dr. Koffi Vick who agrees with the assessment and plan of care. - Patient Problems (1) NSTEMI (non-ST elevated myocardial infarction) Current Visit: Yes Status: Acute (2) Drug overdose, multiple drugs Current Visit: Yes Status: Acute (3) Elevated LFTs Current Visit: Yes Status: Acute (4) Acute respiratory failure Current Visit: Yes Status: Acute Qualifiers: Respiratory failure complication: hypoxia Qualified Code(s): J96.01 - Acute respiratory failure with hypoxia (5) Lactic acidosis Current Visit: Yes Status: Acute (6) Acute metabolic encephalopathy Current Visit: Yes Status: Acute (7) Polysubstance abuse Current Visit: Yes Status: Chronic (8) Elevated LFTs Current Visit: Yes Status: Acute (9) HLD (hyperlipidemia) Current Visit: Yes Status: Chronic Qualifiers: Hyperlipidemia type: mixed hyperlipidemia Qualified Code(s): E78.2 - Mixed hyperlipidemia Subjective Date of service: 06/22/20 Principal diagnosis: NSTEMI, Polysubstance Abuse Interval history: pt is agitated and combative today, unable to perform stress testing. not compliant with remote telemetry overnight. Objective Last Vital Signs Temp 98.6 F 06/22/20 04:00 Pulse 94 H 06/22/20 04:00 Resp 20 06/22/20 04:00 BP 120/86 06/22/20 04:00 Pulse Ox 100 06/22/20 04:00 - Physical Examination General: Other (agitated) HEENT: Positive: EOMI, Normocephaly, Mucus Membranes Moist Neck: Positive: neck supple, trachea midline. Negative: JVD/HJR Cardiac: Positive: Reg Rate and Rhythm, S1/S2 Lungs: Positive: Decreased Breath Sounds Neuro: Positive: Grossly Intact Abdomen: Positive: Soft, Active Bowel Sounds. Negative: Tender Skin: Negative: Rash Musculoskeletal: No Fluid Collection, No Pain, Normal Range of Motion Extremities: Present: upper extr. pulses, lower extr. pulses. Absent: edema - Labs and Meds CBC 06/22/20 Range/Units 07:48 Hgb 12.9 (11.8-15.2) gm/dl Hct 38.8 (35.5-45.6) % Plt Count 394 (140-440) K/mm3 - Imaging and Cardiology EKG: report reviewed, image reviewed Echo: pending - EKG Sinus rhythms and dysrhythmias: sinus tachycardia Repolarization changes or abnormalities: nonspecific abnormality, ST segment, a nd/or T wave
[2020-06-22] MEDS: LISINOPRIL 10 MG TAB PO SCH (10:54)
[2020-06-22] MEDS: ASPIRIN 325 MG TAB PO SCH (10:54)
[2020-06-22] MEDS: SENNOSIDES 8.6 MG TAB PO SCH ×2 (10:54→21:23)
[2020-06-22] MEDS: carvediloL 6.25 MG TAB PO SCH ×2 (10:54→21:22)
[2020-06-22] MEDS: DIVALPROEX DR 250 MG TAB PO SCH ×2 (10:58→21:27)
--- NOTE | 2020-06-22 11:01 | Progress Note ---
Subjective - Reason for Consult Consult date: 06/22/20 Reason for consult: psychosis, OD - Chief Complaint Chief complaint: The patient's medical record was reviewed and the patient's progress was discussed with the nursing staff. The nurse caring for the patient states the patient has been restless and severely agitated. She also says although the patient denies hallucinations, she has observed him hallucinating and reaching for things that are not there. During my interview with the patient he is lying in bed awake. A sitter is at bedside. The patient is a/o x 2. He is irritable, and appears anxious. He is disheveled. His affect is restricted. He states "I feel good." The patient denies SI/HI. He also denies hallucinations, despite nurse observing him hallucinating. REVIEW OF SYSTEMS Constitutional: Negative for weight loss ENT: Negative for stridor Respiratory: Negative for cough or hemoptysis All other systems reviewed and are negative MSE Appearance: Wearing appropriate clothing. Behavior: irritable, anxious, easily agitated Mood: Affect: Restricted Thought Process: Goal directed Speech: Normal tone and pace Thought Content Suicidal: Denies Homicidal: Denies Hallucinations: Denies, but observed hallucinating Delusions: none elicited Consciousness: alert. Cognition/Memory: Limited Insight/Judgment: Impaired Diagnoses: Acute Psychosis Polysubstance Dependance Treatment Plan Increased Olanzapine 7.5mg po daily Increased Klonopin 0.5mg po BID Sitter: Defer to primary Medical: Per primary Disposition: Recommend acute inpatient psychiatric treatment Will follow. Thank you for this consult. Mental Status Exam - Vital signs Last Vital Signs Temp 98.6 F 06/22/20 04:00 Pulse 94 H 06/22/20 04:00 Resp 06/22/20 04:00 BP 120/86 06/22/20 04:00 Pulse Ox 100 06/22/20 04:00
[2020-06-22] MEDS: traZODone 50 MG TAB PO SCH (21:23)
[2020-06-23] MEDS: LORazepam 2 MG/ML VIAL IV PRN ×4 (01:58→23:33)
[2020-06-23] MEDS: ACETAMINOPHEN 325 MG TAB PO PRN (02:45)
[2020-06-23] MEDS: ONDANSETRON 4 MG/2 ML INJ IV PRN (02:45)
[2020-06-23] MEDS: SODIUM CHLORIDE 0.9% 1000 ML 1,000 ML IV SCH (02:45)
[2020-06-23] MEDS ORDERED: REGADENOSON 0.4 MG/5 ML INJ IV ONE ×2 (06:44→06:47)
[2020-06-23] MEDS ORDERED: METOPROLOL TARTRATE 50 MG TAB ONE (06:46)
--- NOTE | 2020-06-23 08:12 | Progress Note ---
Assessment and Plan Assessment and plan: Patient is a 34-year-old male with past medical history of drug use prior history in 2013 of 1013 which was rescinded at the time shortly after presents to the ED via EMS after found unresponsive along tremor tracks and pulmonary studies showing multiple drugs in his system including PCP, cocaine, THC, o pioids. According to information or review of records patient had an acquaintance who states that the patient uses drugs. EMS attempted to administer Narcan 4 mg in route and noted about a 45 seconds seizure-like activity which was shortly after the Narcan was given and resolved. Otherwise patient was unarousable and intubated for airway protection. There were also many unidentified pills laying around the patient unknown if the patient had taken those medications. He is currently intubated at the time of my evaluation imaging studies are unremarkable except for CT head which shows a possible left anterior maxillary sinus wall fracture. Laboratory studies shows mild elevated troponin and leukocytosis. Chest x-ray; IMPRESSION: Endotracheal tube is present and appears to be in good position. No acute pulmonary or pleural abnormality Unresponsive state, Polysubstance abuse, Elevated troponin, Lactic acidosis CT cervical spine: IMPRESSION: 1. No acute fracture or subluxation in the spine in neutral position. CT head: IMPRESSION: 1. No acute intracranial abnormality. 2. Possible left maxillary sinus fracture. Further evaluation with maxillofacial CT recommended. 06/20: Clinical improving, discontinue restraints. Anticipate discharge in am pending cardiac work up 06/21: Patient awaiting cardiac work-up. Psych input is noted patient now on a 1013 recommend an inpatient psych placement. Leukocytosis and lactic acidosis has improved. No further seizure episode is noted. Lexiscan planned for a.m. due to newly diagnosed cardiomyopathy. Patient started on Coreg and lisinopril. 06/22: Awaiting cardiomyopathy work up. Continues with intermittent owing at night and unsteady gait but otherwise awake and oriented x3 Psych input is noted with adjustment of medication. 06/23: Patient clinically stable, for stress test this am. Medical stable for discharge FOR INPATIENT PLACEMENT Acute respiratory failure secondary to drug overdose Polysubstance abuse with sedation Acute metabolic encephalopathy secondary to substance abuse Cardiomyopathy with EF of 25 to 30% on echo. Acute diastolic congestive heart failure Leukocytosis rule out aspiration pneumonia Presumed seizure Elevated troponin possible and NSTEMI secondary to polysubstance abuse Systemic inflammatory response syndrome No evidence of sepsis Mixed hyperlipidemia Lactic acidosis Moderate protein calorie malnutrition with cachexia: Dietitian following Plan Continue supportive care. Discontinue [place] Patient has been successfully extubated Cardiology input noted anticipate ischemic work-up prior to discharge. Discontinue abx. Elevated blood pressure and tachycardia likely secondary to residual effect of substance abuse and altered mental status with associated anxiety. Fluid resuscitation If no clinical improvement in mental status will obtain psych evaluation Seizure precautions DVT and GI prophylaxis Hospitalist Physical - Constitutional Vitals: Temp Pulse Resp BP Pulse Ox 97.3 F L 88 20 114/86 98 06/23/20 02:00 06/23/20 02:00 06/23/20 02:00 06/23/20 02:00 06/23/20 02:00 General appearance: Present: no acute distress HEART Score - HEART Score Troponin: Troponin T < 0.010 ng/mL (0.00-0.029) 06/22/20 07:48 Results - Labs CBC & Chem 7: 06/22/20 07:48 06/19/20 04:33 Labs: Laboratory Last Values WBC 11.1 K/mm3 (4.5-11.0) H 06/19/20 04:33 RBC 4.25 M/mm3 (3.65-5.03) 06/19/20 04:33 Hgb 12.9 gm/dl (11.8-15.2) 06/22/20 07:48 Hct 38.8 % (35.5-45.6) 06/22/20 07:48 MCV 83 fl (84-94) L 06/19/20 04:33 MCH 28 pg (28-32) 06/19/20 04:33 MCHC 33 % (32-34) 06/19/20 04:33 RDW 15.5 % (13.2-15.2) H 06/19/20 04:33 Plt Count 394 K/mm3 (140-440) 06/22/20 07:48 Lymph % (Auto) 9.3 % (13.4-35.0) L 06/18/20 15:04 [place] % (Auto) 5.7 % (0.0-7.3) 06/18/20 15:04 Eos % (Auto) 0.1 % (0.0-4.3) 06/18/20 15:04 Baso % (Auto) 0.5 % (0.0-1.8) 06/18/20 15:04 Lymph # 1.6 K/mm3 (1.2-5.4) 06/18/20 15:04 [place] # 1.0 K/mm3 (0.0-0.8) H 06/18/20 15:04 Eos # 0.0 K/mm3 (0.0-0.4) 06/18/20 15:04 Baso # 0.1 K/mm3 (0.0-0.1) 06/18/20 15:04 Seg Neutrophils % 84.4 % (40.0-70.0) H 06/18/20 15:04 Seg Neutrophils # 14.9 K/mm3 (1.8-7.7) H 06/18/20 15:04 PT 12.6 Sec. (12.2-14.9) 06/18/20 15:04 INR 0.93 (0.87-1.13) 06/18/20 15:04 APTT 32.9 Sec. (24.2-36.6) 06/18/20 15:04 Heparin Anti-Xa Level < 0.10 U.I./ml (0.3-0.7) L 06/21/20 08:18 ABG pH 7.373 pH Units (7.350-7.450) 06/19/20 03:00 ABG pCO2 47.9 mm Hg 06/19/20 03:00 ABG pO2 119.8 mm Hg (80.0-90.0) H 06/19/20 03:00 ABG HCO3 27.3 mmol/L (20.0-26.0) H 06/19/20 03:00 ABG O2 Saturation 98.2 % (95.0-99.0) 06/19/20 03:00 ABG O2 Content 16.1 (0.0-44) 06/19/20 03:00 ABG Base Excess 1.5 mmol/L (-2.0-3.0) 06/19/20 03:00 ABG Hemoglobin 11.8 gm/dl (14.0-18.0) L 06/19/20 03:00 ABG Carboxyhemoglobin 1.2 % (0.0-5.0) 06/19/20 03:00 ABG Methemoglobin 0.5 % (0.0-1.5) 06/19/20 03:00 Oxyhemoglobin 96.5 % (95.0-99.0) 06/19/20 03:00 FiO2 50 % 06/19/20 03:00 Sodium 144 mmol/L (137-145) 06/19/20 04:33 Potassium 4.1 mmol/L (3.6-5.0) 06/19/20 04:33 Chloride 106.5 mmol/L (98-107) 06/19/20 04:33 Carbon Dioxide 25 mmol/L (22-30) D 06/19/20 04:33 Anion Gap 17 mmol/L 06/19/20 04:33 BUN 13 mg/dL (9-20) 06/19/20 04:33 Creatinine 0.7 mg/dL (0.8-1.3) L 06/19/20 04:33 Estimated GFR > 60 ml/min 06/19/20 04:33 BUN/Creatinine Ratio 19 % 06/19/20 04:33 Glucose 88 mg/dL (75-100) 06/19/20 04:33 POC Glucose 93 (70-105) 06/22/20 17:42 Lactic Acid 1.70 mmol/L (0.7-2.0) 06/18/20 22:48 Calcium 8.3 mg/dL (8.4-10.2) L 06/19/20 04:33 Total Bilirubin 0.60 mg/dL (0.1-1.2) 06/19/20 04:33 AST 45 units/L (5-40) H 06/19/20 04:33 ALT 46 units/L (7-56) 06/19/20 04:33 Alkaline Phosphatase 90 units/L (35-129) 06/19/20 04:33 Ammonia 64.0 umol/L (25-60) H 06/18/20 15:04 Total Creatine Kinase 1007 units/L (55-170) H 06/19/20 01:08 CK-MB (CK-2) 16.6 ng/mL (0.0-4.0) H 06/19/20 01:08 CK-MB (CK-2) Rel Index 1.6 (0-4) 06/19/20 01:08 Troponin T < 0.010 ng/mL (0.00-0.029) 06/22/20 07:48 Total Protein 6.3 g/dL (6.3-8.2) D 06/19/20 04:33 Albumin 2.9 g/dL (3.9-5) L 06/19/20 04:33 Albumin/Globulin Ratio 0.9 % 06/19/20 04:33 Triglycerides 160 mg/dL (2-149) H 06/18/20 14:36 Cholesterol 146 mg/dL (50-199) 06/18/20 14:36 LDL Cholesterol Direct 87 mg/dL (50-130) 06/18/20 14:36 HDL Cholesterol 49 mg/dL (40-59) 06/18/20 14:36 Cholesterol/HDL Ratio 2.97 % 06/18/20 14:36 TSH 0.743 mlU/mL (0.270-4.200) 06/18/20 14:36 Urine Color Yellow (Yellow) 06/18/20 13:38 Urine Turbidity Clear (Clear) 06/18/20 13:38 Urine pH 5.0 (5.0-7.0) 06/18/20 13:38 Ur Specific Widen 1.024 (1.003-1.030) 06/18/20 13:38 Urine Protein <15 mg/dl mg/dL (Negative) 06/18/20 13:38 Urine Glucose (UA) Neg mg/dL (Negative) 06/18/20 13:38 Urine Ketones Tr mg/dL (Negative) 06/18/20 13:38 Urine Blood Sm (Negative) 06/18/20 13:38 Urine Nitrite Neg (Negative) 06/18/20 13:38 Urine Bilirubin Neg (Negative) 06/18/20 13:38 Urine Urobilinogen 2.0 mg/dL (<2.0) 06/18/20 13:38 Ur Leukocyte Esterase Neg (Negative) 06/18/20 13:38 Urine WBC (Auto) 3.0 /HPF (0.0-6.0) 06/18/20 13:38 Urine RBC (Auto) 4.0 /HPF (0.0-6.0) 06/18/20 13:38 Urine Bacteria (Auto) 2+ /HPF (Negative) 06/18/20 13:38 Nasal Screen MRSA (PCR) Positive (Negative) 06/19/20 08:50 Salicylates < 0.3 mg/dL (2.8-20.0) L 06/18/20 14:36 Urine Opiates Screen Presumptive positive 06/18/20 13:38 Urine Methadone Screen Presumptive negative 06/18/20 13:38 Acetaminophen < 5.0 ug/mL (10.0-30.0) L 06/18/20 14:36 Ur Barbiturates Screen Presumptive negative 06/18/20 13:38 Ur Phencyclidine Scrn Presumptive negative 06/18/20 13:38 Ur Amphetamines Screen Presumptive positive 06/18/20 13:38 U Benzodiazepines Scrn Presumptive negative 06/18/20 13:38 Urine Cocaine Screen Presumptive positive 06/18/20 13:38 U Marijuana (THC) Screen Presumptive positive 06/18/20 13:38 Drugs of Abuse Note Disclamer 06/18/20 13:38 Plasma/Serum Alcohol < 0.01 % (0-0.07) 06/18/20 14:36 Microbiology: Microbiology 06/18/20 Unknown Peripheral/Venous Blood Culture - Preliminary NO GROWTH AFTER 4 DAYS 06/18/20 15:07 Peripheral/Venous Blood Culture - Preliminary NO GROWTH AFTER 4 DAYS - Diagnostic Impressions Diagnostic Impressions: Echocardiogram 06/18/20 16:54 Transthoracic Echocardiogram Indication: Chest pain BP: 154/93 HR: 102 Conclusions *Mild concentric left ventricular hypertrophy is observed. *Global left ventricular systolic function is moderate to severely decreased. *The estimated ejection fraction is 25-30%. The anterior wall segment is hypokinetic. *Abnormal left ventricular diastolic filling is observed, consistent with impaired relaxation. *There is no pericardial effusion. Findings Left Ventricle: The left ventricular chamber size is normal. Mild concentric left ventricular hypertrophy is observed. Global left ventricular systolic function is moderate to severely decreased. The estimated ejection fraction is 25-30%. The anterior wall segment is hypokinetic. Abnormal left ventricular diastolic filling is observed, consistent with impaired relaxation. Left Atrium: The left atrial chamber size is normal. Right Ventricle: The right ventricular cavity size is normal. Right Atrium: The right atrial cavity size is normal. Aortic Valve: The aortic valve structure is normal. There is no evidence of aortic regurgitation. Mitral Valve: The mitral valve leaflets are mildly thickened. There is no evidence of mitral regurgitation. Tricuspid Valve: The tricuspid valve leaflets are normal. There is no evidence of tricuspid valve regurgitation. Pulmonic Valve: The pulmonic valve appears normal. There is trace pulmonic regurgitation. Pericardium: There is no pericardial effusion. Venous: The inferior vena cava appears normal in size. Measurements Chambers 2D Name Value Normal Range IVSd (2D) 1.21 cm (0.6 - 1.1) LVPWd (2D) 1.05 cm (0.6 - 1.1) LVIDd (2D) 4.76 cm (3.7 - 5.6) LVIDs (2D) 3.92 cm (2 - 3.8) LV FS (2D) 17.6 % - EF Teichholz (2D) 36.63 % - Ao root diameter (2D) 3.79 cm (2 - 3.7) Volumes/Mass Name Value Normal Range LA ESV SP 4CH (A/L) 19.26 ml - LA ESV SP 2CH (A/L) 15.3 ml - LA ESV BP (A/L) 18.22 ml - LA ESV BP (A/L) index 11.04 ml/m2 - LA ESV SP 4CH (MOD) 16.91 ml - LA ESV SP 2CH (MOD) 14.18 ml - LA ESV BP (MOD) 16.27 ml - LA ESV BP (MOD) index 9.86 ml/m2 - Diastolic/Systolic Function Name Value Normal Range MV E-wave Vmax 0.37 m/sec - MV deceleration time 238.43 msec - MV A-wave Vmax 0.56 m/sec - MV E:A ratio 0.66 ratio - Aortic Valve Name Value Normal Range AV Vmax 0.94 m/sec - AV VTI 15.33 cm - AV peak gradient 3.52 mmHg - AV mean gradient 2.22 mmHg - LVOT diameter 2.07 cm - LVOT Vmax 0.84 m/sec - LVOT VTI 15.53 cm - LVOT peak gradient 2.8 mmHg - LVOT mean gradient 1.9 mmHg - SV LVOT 52.45 ml - EUGENE (continuity Vmax) 3.01 cm2 - EUGENE (continuity VTI) 3.42 cm2 - Pulmonic Valve/Qp:Qs Name Value Normal Range PV Vmax 0.89 m/sec - PV peak gradient 3.16 mmHg - PV acceleration time 114.18 msec - [place]/IV: Voiding Method Incontinent IV Catheter Type [Right Upper INT / Saline Lock arm] IV Catheter Type [Left INT / Saline Lock External Jugular] IV Catheter Type [Left Upper INT / Saline Lock arm] Active Medications - Current Medications Current Medications: Generic Name Dose Route Start Last Admin Trade Name Freq PRN Reason Stop Dose Admin Acetaminophen 650 mg 06/18/20 16:46 06/23/20 02:45 Tylenol PO 650 mg Q6H PRN Administration Pain MILD(1-3)/Fever >100.5/ROD Aspirin 325 mg 06/21/20 12:00 06/22/20 10:54 Aspirin PO 325 mg QDAY LILIAN Administration Atorvastatin Calcium 40 mg 06/21/20 22:00 06/22/20 21:22 Lipitor PO 40 mg QHS LILIAN Administration Carvedilol 6.25 mg 06/21/20 12:00 06/22/20 21:22 Coreg PO 6.25 mg BID LILIAN Administration Clonazepam 0.5 mg 06/22/20 22:00 06/22/20 21:22 Klonopin PO 0.5 mg BID LILIAN Administration Dextrose 25 ml 06/20/20 07:10 D50w (25gm) Syringe IV Q30MIN PRN Hypoglycemia Protocol Divalproex Sodium 250 mg 06/21/20 22:00 06/22/20 21:[address] PO 250 mg BID LILIAN Administration Sodium Chloride 1,000 mls @ 150 mls/hr 06/18/20 17:00 06/23/20 02:45 Nacl 0.9% 1000 Ml IV 150 mls/hr DIRECT LILIAN Administration Lisinopril 10 mg 06/21/20 12:00 06/22/20 10:54 Zestril PO 10 mg QDAY LILIAN Administration Lorazepam 2 mg 06/19/20 16:51 06/23/20 07:52 Ativan IV 2 mg Q4H PRN Administration Agitation Naloxone HCl 0.1 mg 06/18/20 16:49 Naloxone IV Q2MIN PRN Res Rate </= 8 or 02 SAT < 92% Olanzapine 7.5 mg 06/23/20 10:00 Zyprexa PO QDAY LILIAN Ondansetron HCl 4 mg 06/21/20 03:33 06/23/20 02:45 Zofran IV 4 mg Q4H PRN Administration Nausea Senna 8.6 mg 06/18/20 22:00 06/22/20 21:23 Senokot PO 8.6 mg BID LILIAN Administration Sodium Chloride 10 ml 06/18/20 22:00 06/22/20 21:24 Sodium Chloride Flush Syringe 10 Ml IV 10 ml BID LILIAN Administration Sodium Chloride 10 ml 06/18/20 16:46 Sodium Chloride Flush Syringe 10 Ml IV PRN PRN LINE FLUSH Trazodone HCl 50 mg 06/20/20 22:00 06/22/20 21:23 Desyrel PO 50 mg QHS LILIAN Administration Ziprasidone 20 mg 06/20/20 14:48 06/21/20 14:45 Geodon IM 20 mg Q6H PRN Administration Agitation Nutrition/Malnutrition Assess - Dietary Evaluation Nutrition/Malnutrition Findings: Nutrition Notes Start: 06/19/20 10:27 Freq: Status: Active Protocol: Document 06/21/20 13:00 LM (Rec: 06/21/20 13:06 LM [id number]) Nutrition Notes Need for Assessment generated from: Low BMI Initial or Follow up Reassessment Current Diagnosis Respiratory Failure Other Pertinent Diagnosis polysubstance abuse Current Diet Regular Labs/Tests Reviewed Pertinent Medications Reviewed Height 5 ft 8 in Weight 55 kg [place] Body Weight (kg) 70.00 BMI 18.4 Weight Status Underweight Subjective/Other Information Screen for low BMI. Already following pt. Pt extubated and diet advanced. Pt did not answer phone. Pt has 75% intakes for breakfast and lunch in chart. Percent of energy/protein needs met: 100%/100% Burn Absent Trauma Absent GI Symptoms None Current % PO Good (75-100%) Minimum of two criteria No physical signs of malnutrition #1 Nutrition Diagnosis Inadequate oral intake As Evidenced by Signs and Symptoms pt eating 75% of meals Diagnosis Progress(for reassessment Resolved documentation) Is patient on ventilator? No Is Patient Ambulatory and/or Out of Bed No REE-([facility] Jeor-confined to bed) 1754.100 Calculation Used for Recommendations [facility] Additional Notes Protein: 44-55g/kg Fluid: 1ml/kcal Nutrition Intervention Change Diet Order: continue Goal #1 Meet at least 80% of energy and protein needs Goal #2 Wt gain/maintenance Anticipated Discharge Needs: cardiac Follow-Up By: 06/25/20 Additional Comments F/U for stable intakes
--- NOTE | 2020-06-23 09:50 | Progress Note ---
Assessment and Plan tte reviewed - EF 25-30%, mild LVH, anterior wall hypokinetic, impaired relaxation. No apparent clinical evidence of acutely decompensated HF. Cont coreg and lisinopril. Suspect NSTEMI type II in the setting of polysubstance abuse/overdose. S/p heparin gtt for >48Hr. Cont ASA 325 and statin. Proceed with lexiscan MPI stress test. Await findings. Pt seen in conjunction with Dr. Koffi Vick who agrees with the assessment and plan of care. - Patient Problems (1) NSTEMI (non-ST elevated myocardial infarction) Current Visit: Yes Status: Acute (2) Drug overdose, multiple drugs Current Visit: Yes Status: Acute (3) Elevated LFTs Current Visit: Yes Status: Acute (4) Acute respiratory failure Current Visit: Yes Status: Acute Qualifiers: Respiratory failure complication: hypoxia Qualified Code(s): J96.01 - Acute respiratory failure with hypoxia (5) Lactic acidosis Current Visit: Yes Status: Acute (6) Acute metabolic encephalopathy Current Visit: Yes Status: Acute (7) Polysubstance abuse Current Visit: Yes Status: Chronic (8) Elevated LFTs Current Visit: Yes Status: Acute (9) HLD (hyperlipidemia) Current Visit: Yes Status: Chronic Qualifiers: Hyperlipidemia type: mixed hyperlipidemia Qualified Code(s): E78.2 - Mixed hyperlipidemia Subjective Date of service: 06/23/20 Principal diagnosis: NSTEMI, Polysubstance Abuse Interval history: pt for stress test today, no apparent distress. not compliant with remote telemetry overnight. Objective Last Vital Signs Temp 97.3 F L 06/23/20 02:00 Pulse 88 06/23/20 02:00 Resp 20 06/23/20 08:27 BP 107/71 06/23/20 08:27 Pulse Ox 98 06/23/20 02:00 - Physical Examination General: No Apparent Distress HEENT: Positive: EOMI, Normocephaly, Mucus Membranes Moist Neck: Positive: neck supple, trachea midline. Negative: JVD/HJR Cardiac: Positive: Reg Rate and Rhythm, S1/S2 Lungs: Positive: Decreased Breath Sounds Neuro: Positive: Grossly Intact Abdomen: Positive: Soft, Active Bowel Sounds. Negative: Tender Skin: Negative: Rash Musculoskeletal: No Fluid Collection, No Pain, Normal Range of Motion Extremities: Present: upper extr. pulses, lower extr. pulses. Absent: edema - Imaging and Cardiology EKG: report reviewed, image reviewed Echo: report reviewed (EF 25-30%, mild LVH, anterior wall hypokinetic, impaired relaxation.) - EKG Sinus rhythms and dysrhythmias: sinus tachycardia Repolarization changes or abnormalities: nonspecific abnormality, ST segment, and/or T wave
[2020-06-23] MEDS: clonazePAM 0.5 MG TAB PO SCH ×2 (10:54→21:17)
[2020-06-23] MEDS: SENNOSIDES 8.6 MG TAB PO SCH ×2 (10:54→21:17)
[2020-06-23] MEDS: ASPIRIN 325 MG TAB PO SCH (10:54)
[2020-06-23] MEDS: carvediloL 6.25 MG TAB PO SCH ×2 (10:54→21:17)
[2020-06-23] MEDS: DIVALPROEX DR 250 MG TAB PO SCH (10:55)
[2020-06-23] MEDS: LISINOPRIL 10 MG TAB PO SCH (10:55)
--- NOTE | 2020-06-23 11:49 | Event Note ---
Date: 06/23/20 S/p lexiscan MPI stress test today which was negative for ischemia, EF 45%. Currently stable cardiac status. Nothing further to add from cardiac perspective at this time. Will sign off. Recommend pt follow up in our office with Dr. JANICE Vick within 2 weeks of hospital discharge ([phone]). Clement PINON NP / DR. Koffi VICK
--- NOTE | 2020-06-23 12:04 | Progress Note ---
Subjective - Reason for Consult Consult date: 06/23/20 Reason for consult: OD - Chief Complaint Chief complaint: The patient's medical record was reviewed and the patient's progress was discussed with the nursing staff. The sitter with the patient states he's been restless and agitated. During my interview with the patient he is lying in bed awake. A sitter is at bedside. The patient is a/o x 2. He is cooperative. He is somewhat disorganized. The patient is disheveled. He states, "I feel okay. Just ready to go." He denies SI/HI or hallucinations of any kind, but witnessed as I was walking in loooking at the wall mumbling to himself. The patient gave me permission to speak with his . She was called from bedside using my personal cell. The patient's states the patient is not being forthcoming. She says he's been expressing thoughts of dying and not wanting to live for weeks. She says the patient has been disorganized. She says he has given up on life. She also says the patient is probably lying about not hallucinating. She says he's was hallucinating prior to coming to the hospital. REVIEW OF SYSTEMS Constitutional: Negative for weight loss ENT: Negative for stridor Respiratory: Negative for cough or hemoptysis All other systems reviewed and are negative MSE Appearance: Wearing appropriate clothing. Behavior: cooperative, has been restless and agitated for sitter Mood: "good" Affect: Restricted Thought Process: Goal directed Speech: Normal tone and pace Thought Content Suicidal: Denies Homicidal: Denies Hallucinations: Denies, but observed hallucinating Delusions: none elicited Consciousness: alert. Cognition/Memory: Limited Insight/Judgment: Impaired Diagnoses: Acute Psychosis Polysubstance Dependance Treatment Plan Increased Olanzapine 10mg po daily Increased Depakote 500mg po BID Sitter: Defer to primary Medical: Per primary Disposition: Recommend acute inpatient psychiatric treatment Will follow. Thank you for this consult. Mental Status Exam - Vital signs Last Vital Signs Temp 97.3 F L 06/23/20 02:00 Pulse 88 06/23/20 02:00 Resp 20 06/23/20 08:27 BP 107/71 06/23/20 10:55 Pulse Ox 98 06/23/20 02:00
--- NOTE | 2020-06-23 12:14 | Discharge Summary ---
Providers - Providers Date of Admission: 06/18/20 16:42 Attending physician: MER TAYLOR MD 06/18/20 16:45 Consult to Cardiology [CONS] Routine Consulting Provider: LAUREN MACE Reason For Exam: elevated troponin, NSTEMI 06/18/20 22:02 Consult to Dietitian/Nutrition [CONS] Routine Physician Instructions: Reason For Exam: Reason for Consult: Evaluate nutritional intake 06/19/20 16:42 Consult to Mental Health [CONS] Routine Reason For Exam: ACUTE PSYCHOSIS Primary care physician: SCALE SHOOTER Hospitalization Condition: Stable Hospital course: Patient is a 34-year-old male with past medical history of drug use prior history in 2013 which was rescinded at the time shortly after presents to the ED via EMS after found unresponsive along tremor tracks and pulmonary studies showing multiple drugs in his system including PCP, cocaine, THC, opioids. According to information or review of records patient had an acquaintance who states that the patient uses drugs. EMS attempted to administer Narcan 4 mg in route and noted about a 45 seconds seizure-like activity which was shortly after the Narcan was given and resolved. Otherwise patient was unarousable and intubated for airway protection. There were also many unidentified pills laying around the patient unknown if the patient had taken those medications. He is currently intubated at the time of my evaluation imaging studies are unremarkable except for CT head which shows a possible left anterior maxillary sinus wall fracture. Laboratory studies shows mild elevated troponin and leukocytosis. Chest x-ray; IMPRESSION: Endotracheal tube is present and appears to be in good position. No acute pulmonary or pleural abnormality Unresponsive state, Polysubstance abuse, Elevated troponin, Lactic acidosis CT cervical spine: IMPRESSION: 1. No acute fracture or subluxation in the spine in neutral position. CT head: IMPRESSION: 1. No acute intracranial abnormality. 2. Possible left maxillary sinus fracture. Further evaluation with maxillofacial CT recommended. 06/20: Clinical improving, discontinue restraints. Anticipate discharge in am pending cardiac work up 06/21: Patient awaiting cardiac work-up. Psych input is noted patient now on a 1013 recommend an inpatient psych placement. Leukocytosis and lactic acidosis has improved. No further seizure episode is noted. Lexiscan planned for a.m. due to newly diagnosed cardiomyopathy. Patient started on Coreg and lisinopril. 06/22: Awaiting cardiomyopathy work up. Continues with intermittent sundowing at night and unsteady gait but otherwise awake and oriented x3 Psych input is noted with adjustment of medication. 06/23: Patient clinically stable, for stress test this am AND WAS NEGATIVE. PATIENT IS MEDICALLY STABLE FOR DISCHARGE TO INPATIENT PSYCH. This has been discussed with psych team 06/24: Patient continues to be clinically stable. Awaiting placement into inpatient psych. Acute respiratory failure secondary to drug overdose Polysubstance abuse with sedation Acute metabolic encephalopathy secondary to substance abuse Cardiomyopathy with EF of 25 to 30% on echo. Acute diastolic congestive heart failure Leukocytosis rule out aspiration pneumonia Presumed seizure Elevated troponin possible and NSTEMI secondary to polysubstance abuse Systemic inflammatory response syndrome No evidence of sepsis Mixed hyperlipidemia Lactic acidosis Moderate protein calorie malnutrition with cachexia: Dietitian following Disposition: DC/TX-65 PSY HOSP/PSY UNIT Time spent for discharge: 35 mins Exam - Constitutional Vitals: Temp Pulse Resp BP Pulse Ox 97.3 F L 88 20 107/71 98 06/23/20 02:00 06/23/20 02:00 06/23/20 08:27 06/23/20 10:55 06/23/20 02:00 Plan Activity: advance as tolerated, fall precautions Diet: low fat Special Instructions: smoking cessation Follow up with: [facility] [Outside] - 7 Days PRIMARY CARE, [Primary Care Provider] - 3-5 Days Prescriptions: traZODone [Desyrel] 50 mg PO QHS #30 tablet AtorvaSTATin [Lipitor] 40 mg PO QHS #30 tablet carvediloL [Coreg] 6.25 mg PO BID #[address] [Depakote Dr] 250 mg PO BID #60 tablet clonazePAM [KlonoPIN] 0.25 mg PO BID #30 tablet Albuterol Mdi (or & Nicu Only) [ProAir HFA Inhaler] 2 puff IH QID PRN #8.5 gram PRN Reason: Shortness Of Breath lisinopriL [Zestril TAB] 10 mg PO QDAY #30 tablet OLANzapine [ZyPREXA] 5 mg PO QDAY #30 tablet
--- NOTE | 2020-06-23 16:36 | Treadmill Report ---
NUCLEAR PERFUSION SCAN REFERRING PHYSICIAN: Hospitalist Service. PROTOCOL: The patient was brought to the stress lab in postoperative state, given 10 mCi of technetium 99m at rest. The patient underwent rest imaging. The patient underwent Lexiscan stress test. At peak stress, the patient was given 26 mCi of technetium 99m. Shortly thereafter, the patient underwent stress imaging. There is mild GI artifact and mild motion artifact. Technically somewhat difficult study. INTERPRETATION: Grossly, there is no evidence of a significant fixed or perfusion defects suggestive of prior infarction or ischemia. Mild global left ventricular hypokinesis with a calculated ejection fraction 45%, no TID. CONCLUSIONS: 1. Technically difficult study due to motion artifact, but grossly probably normal without evidence of significant degree of ischemia or prior infarction. 2. Mild global left ventricular hypokinesis with a calculated ejection fraction 45% without evidence of transient ischemic dilatation ____. JOB# [id number] ROCKY/MEREDITH
--- NOTE | 2020-06-23 18:08 | Progress Note ---
Assessment and Plan Assessment and plan: Patient is a 34-year-old male with past medical history of drug use prior history in 2013 of 1013 which was rescinded at the time shortly after presents to the ED via EMS after found unresponsive along tremor tracks and pulmonary studies showing multiple drugs in his system including PCP, cocaine, THC, o pioids. According to information or review of records patient had an acquaintance who states that the patient uses drugs. EMS attempted to administer Narcan 4 mg in route and noted about a 45 seconds seizure-like activity which was shortly after the Narcan was given and resolved. Otherwise patient was unarousable and intubated for airway protection. There were also many unidentified pills laying around the patient unknown if the patient had taken those medications. He is currently intubated at the time of my evaluation imaging studies are unremarkable except for CT head which shows a possible left anterior maxillary sinus wall fracture. Laboratory studies shows mild elevated troponin and leukocytosis. Chest x-ray; IMPRESSION: Endotracheal tube is present and appears to be in good position. No acute pulmonary or pleural abnormality Unresponsive state, Polysubstance abuse, Elevated troponin, Lactic acidosis CT cervical spine: IMPRESSION: 1. No acute fracture or subluxation in the spine in neutral position. CT head: IMPRESSION: 1. No acute intracranial abnormality. 2. Possible left maxillary sinus fracture. Further evaluation with maxillofacial CT recommended. 06/20: Clinical improving, discontinue restraints. Anticipate discharge in am pending cardiac work up 06/21: Patient awaiting cardiac work-up. Psych input is noted patient now on a 1013 recommend an inpatient psych placement. Leukocytosis and lactic acidosis has improved. No further seizure episode is noted. Lexiscan planned for a.m. due to newly diagnosed cardiomyopathy. Patient started on Coreg and lisinopril. 06/22: Awaiting cardiomyopathy work up. Continues with intermittent owing at night and unsteady gait but otherwise awake and oriented x3 Psych input is noted with adjustment of medication. 06/23: Patient clinically stable, for stress test this am was done and negative Medical stable for discharge FOR INPATIENT PLACEMENT Acute respiratory failure secondary to drug overdose Polysubstance abuse with sedation Acute metabolic encephalopathy secondary to substance abuse Cardiomyopathy with EF of 25 to 30% on echo. Acute diastolic congestive heart failure Leukocytosis rule out aspiration pneumonia Presumed seizure Elevated troponin possible and NSTEMI secondary to polysubstance abuse Systemic inflammatory response syndrome No evidence of sepsis Mixed hyperlipidemia Lactic acidosis Moderate protein calorie malnutrition with cachexia: Dietitian following Plan Continue supportive care. Discontinue [place] Patient has been successfully extubated Cardiology input noted anticipate ischemic work-up prior to discharge. Discontinue abx. Elevated blood pressure and tachycardia likely secondary to residual effect of substance abuse and altered mental status with associated anxiety. Fluid resuscitation If no clinical improvement in mental status will obtain psych evaluation Seizure precautions DVT and GI prophylaxis History Interval history: Patient seen and examined in no acute distress, much more awake. following commands Hospitalist Physical - Physical exam Narrative exam: VITAL SIGNS: Reviewed. GENERAL: The patient appears normally developed, cachectic MUCH IMPROVED but much improved vital signs as documented. SITTER NOTED HEAD: No signs of head trauma. EYES: Pupils are equal. EARS: Hearing is intact MOUTH: NO DEFORMITY NECK: No adenopathy, no JVD. CHEST: Chest with transmitted bronchovesicular sounds with no wheezing or rales CARDIAC: Regular rate and rhythm. S1 and S2, without murmurs, gallops, or rubs. VASCULAR: No Edema. Peripheral pulses normal and equal in all extremities. ABDOMEN: Soft, non tender and non distended. No rebound or guarding, and no masses palpated. Bowel Sounds normal. MUSCULOSKELETAL: Good range of motion of all major joints. Extremities without clubbing, cyanosis or edema. NEUROLOGIC EXAM: Alert and oriented x 3 no focal sensory or strength deficits. Speech normal. Not fully following commands PSYCHIATRIC: Mood normal SKIN: Multiple punctate lesions and abrasion detail exam as documented in skin assessment - Constitutional Vitals: Temp Pulse Resp BP Pulse Ox 97.3 F L 82 18 114/82 100 06/23/20 12:18 06/23/20 12:18 06/23/20 12:18 06/23/20 12:18 06/23/20 12:18 General appearance: Present: no acute distress HEART Score - HEART Score Troponin: Troponin T < 0.010 ng/mL (0.00-0.029) 06/22/20 07:48 Results - Labs CBC & Chem 7: 06/22/20 07:48 06/19/20 04:33 Labs: Laboratory Last Values WBC 11.1 K/mm3 (4.5-11.0) H 06/19/20 04:33 RBC 4.25 M/mm3 (3.65-5.03) 06/19/20 04:33 Hgb 12.9 gm/dl (11.8-15.2) 06/22/20 07:48 Hct 38.8 % (35.5-45.6) 06/22/20 07:48 MCV 83 fl (84-94) L 06/19/20 04:33 MCH 28 pg (28-32) 06/19/20 04:33 MCHC 33 % (32-34) 06/19/20 04:33 RDW 15.5 % (13.2-15.2) H 06/19/20 04:33 Plt Count 394 K/mm3 (140-440) 06/22/20 07:48 Lymph % (Auto) 9.3 % (13.4-35.0) L 06/18/20 15:04 Crawford % (Auto) 5.7 % (0.0-7.3) 06/18/20 15:04 Eos % (Auto) 0.1 % (0.0-4.3) 06/18/20 15:04 Baso % (Auto) 0.5 % (0.0-1.8) 06/18/20 15:04 Lymph # 1.6 K/mm3 (1.2-5.4) 06/18/20 15:04 Crawford # 1.0 K/mm3 (0.0-0.8) H 06/18/20 15:04 Eos # 0.0 K/mm3 (0.0-0.4) 06/18/20 15:04 Baso # 0.1 K/mm3 (0.0-0.1) 06/18/20 15:04 Seg Neutrophils % 84.4 % (40.0-70.0) H 06/18/20 15:04 Seg Neutrophils # 14.9 K/mm3 (1.8-7.7) H 06/18/20 15:04 PT 12.6 Sec. (12.2-14.9) 06/18/20 15:04 INR 0.93 (0.87-1.13) 06/18/20 15:04 APTT 32.9 Sec. (24.2-36.6) 06/18/20 15:04 Heparin Anti-Xa Level < 0.10 U.I./ml (0.3-0.7) L 06/21/20 08:18 ABG pH 7.373 pH Units (7.350-7.450) 06/19/20 03:00 ABG pCO2 47.9 mm Hg 06/19/20 03:00 ABG pO2 119.8 mm Hg (80.0-90.0) H 06/19/20 03:00 ABG HCO3 27.3 mmol/L (20.0-26.0) H 06/19/20 03:00 ABG O2 Saturation 98.2 % (95.0-99.0) 06/19/20 03:00 ABG O2 Content 16.1 (0.0-44) 06/19/20 03:00 ABG Base Excess 1.5 mmol/L (-2.0-3.0) 06/19/20 03:00 ABG Hemoglobin 11.8 gm/dl (14.0-18.0) L 06/19/20 03:00 ABG Carboxyhemoglobin 1.2 % (0.0-5.0) 06/19/20 03:00 ABG Methemoglobin 0.5 % (0.0-1.5) 06/19/20 03:00 Oxyhemoglobin 96.5 % (95.0-99.0) 06/19/20 03:00 FiO2 50 % 06/19/20 03:00 Sodium 144 mmol/L (137-145) 06/19/20 04:33 Potassium 4.1 mmol/L (3.6-5.0) 06/19/20 04:33 Chloride 106.5 mmol/L (98-107) 06/19/20 04:33 Carbon Dioxide 25 mmol/L (22-30) D 06/19/20 04:33 Anion Gap 17 mmol/L 06/19/20 04:33 BUN 13 mg/dL (9-20) 06/19/20 04:33 Creatinine 0.7 mg/dL (0.8-1.3) L 06/19/20 04:33 Estimated GFR > 60 ml/min 06/19/20 04:33 BUN/Creatinine Ratio 19 % 06/19/20 04:33 Glucose 88 mg/dL (75-100) 06/19/20 04:33 POC Glucose 108 (70-105) H 06/23/20 08:00 Lactic Acid 1.70 mmol/L (0.7-2.0) 06/18/20 22:48 Calcium 8.3 mg/dL (8.4-10.2) L 06/19/20 04:33 Total Bilirubin 0.60 mg/dL (0.1-1.2) 06/19/20 04:33 AST 45 units/L (5-40) H 06/19/20 04:33 ALT 46 units/L (7-56) 06/19/20 04:33 Alkaline Phosphatase 90 units/L (35-129) 06/19/20 04:33 Ammonia 64.0 umol/L (25-60) H 06/18/20 15:04 Total Creatine Kinase 1007 units/L (55-170) H 06/19/20 01:08 CK-MB (CK-2) 16.6 ng/mL (0.0-4.0) H 06/19/20 01:08 CK-MB (CK-2) Rel Index 1.6 (0-4) 06/19/20 01:08 Troponin T < 0.010 ng/mL (0.00-0.029) 06/22/20 07:48 Total Protein 6.3 g/dL (6.3-8.2) D 06/19/20 04:33 Albumin 2.9 g/dL (3.9-5) L 06/19/20 04:33 Albumin/Globulin Ratio 0.9 % 06/19/20 04:33 Triglycerides 160 mg/dL (2-149) H 06/18/20 14:36 Cholesterol 146 mg/dL (50-199) 06/18/20 14:36 LDL Cholesterol Direct 87 mg/dL (50-130) 06/18/20 14:36 HDL Cholesterol 49 mg/dL (40-59) 06/18/20 14:36 Cholesterol/HDL Ratio 2.97 % 06/18/20 14:36 TSH 0.743 mlU/mL (0.270-4.200) 06/18/20 14:36 Urine Color Yellow (Yellow) 06/18/20 13:38 Urine Turbidity Clear (Clear) 06/18/20 13:38 Urine pH 5.0 (5.0-7.0) 06/18/20 13:38 Ur Specific Jackson 1.024 (1.003-1.030) 06/18/20 13:38 Urine Protein <15 mg/dl mg/dL (Negative) 06/18/20 13:38 Urine Glucose (UA) Neg mg/dL (Negative) 06/18/20 13:38 Urine Ketones Tr mg/dL (Negative) 06/18/20 13:38 Urine Blood Sm (Negative) 06/18/20 13:38 Urine Nitrite Neg (Negative) 06/18/20 13:38 Urine Bilirubin Neg (Negative) 06/18/20 13:38 Urine Urobilinogen 2.0 mg/dL (<2.0) 06/18/20 13:38 Ur Leukocyte Esterase Neg (Negative) 06/18/20 13:38 Urine WBC (Auto) 3.0 /HPF (0.0-6.0) 06/18/20 13:38 Urine RBC (Auto) 4.0 /HPF (0.0-6.0) 06/18/20 13:38 Urine Bacteria (Auto) 2+ /HPF (Negative) 06/18/20 13:38 Nasal Screen MRSA (PCR) Positive (Negative) 06/19/20 08:50 Salicylates < 0.3 mg/dL (2.8-20.0) L 06/18/20 14:36 Urine Opiates Screen Presumptive positive 06/18/20 13:38 Urine Methadone Screen Presumptive negative 06/18/20 13:38 Acetaminophen < 5.0 ug/mL (10.0-30.0) L 06/18/20 14:36 Ur Barbiturates Screen Presumptive negative 06/18/20 13:38 Ur Phencyclidine Scrn Presumptive negative 06/18/20 13:38 Ur Amphetamines Screen Presumptive positive 06/18/20 13:38 U Benzodiazepines Scrn Presumptive negative 06/18/20 13:38 Urine Cocaine Screen Presumptive positive 06/18/20 13:38 U Marijuana (THC) Screen Presumptive positive 06/18/20 13:38 Drugs of Abuse Note Disclamer 06/18/20 13:38 Plasma/Serum Alcohol < 0.01 % (0-0.07) 06/18/20 14:36 Microbiology: Microbiology 06/18/20 Unknown Peripheral/Venous Blood Culture - Final NO GROWTH AFTER 5 DAYS 06/18/20 15:07 Peripheral/Venous Blood Culture - Final NO GROWTH AFTER 5 DAYS - Diagnostic Impressions Diagnostic Impressions: Echocardiogram 06/18/20 16:54 Transthoracic Echocardiogram Indication: Chest pain BP: 154/93 HR: 102 Conclusions *Mild concentric left ventricular hypertrophy is observed. *Global left ventricular systolic function is moderate to severely decreased. *The estimated ejection fraction is 25-30%. The anterior wall segment is hypokinetic. *Abnormal left ventricular diastolic filling is observed, consistent with impaired relaxation. *There is no pericardial effusion. Findings Left Ventricle: The left ventricular chamber size is normal. Mild concentric left ventricular hypertrophy is observed. Global left ventricular systolic function is moderate to severely decreased. The estimated ejection fraction is 25-30%. The anterior wall segment is hypokinetic. Abnormal left ventricular diastolic filling is observed, consistent with impaired relaxation. Left Atrium: The left atrial chamber size is normal. Right Ventricle: The right ventricular cavity size is normal. Right Atrium: The right atrial cavity size is normal. Aortic Valve: The aortic valve structure is normal. There is no evidence of aortic regurgitation. Mitral Valve: The mitral valve leaflets are mildly thickened. There is no evidence of mitral regurgitation. Tricuspid Valve: The tricuspid valve leaflets are normal. There is no evidence of tricuspid valve regurgitation. Pulmonic Valve: The pulmonic valve appears normal. There is trace pulmonic regurgitation. Pericardium: There is no pericardial effusion. Venous: The inferior vena cava appears normal in size. Measurements Chambers 2D Name Value Normal Range IVSd (2D) 1.21 cm (0.6 - 1.1) LVPWd (2D) 1.05 cm (0.6 - 1.1) LVIDd (2D) 4.76 cm (3.7 - 5.6) LVIDs (2D) 3.92 cm (2 - 3.8) LV FS (2D) 17.6 % - EF Teichholz (2D) 36.63 % - Ao root diameter (2D) 3.79 cm (2 - 3.7) Volumes/Mass Name Value Normal Range LA ESV SP 4CH (A/L) 19.26 ml - LA ESV SP 2CH (A/L) 15.3 ml - LA ESV BP (A/L) 18.22 ml - LA ESV BP (A/L) index 11.04 ml/m2 - LA ESV SP 4CH (MOD) 16.91 ml - LA ESV SP 2CH (MOD) 14.18 ml - LA ESV BP (MOD) 16.27 ml - LA ESV BP (MOD) index 9.86 ml/m2 - Diastolic/Systolic Function Name Value Normal Range MV E-wave Vmax 0.37 m/sec - MV deceleration time 238.43 msec - MV A-wave Vmax 0.56 m/sec - MV E:A ratio 0.66 ratio - Aortic Valve Name Value Normal Range AV Vmax 0.94 m/sec - AV VTI 15.33 cm - AV peak gradient 3.52 mmHg - AV mean gradient 2.22 mmHg - LVOT diameter 2.07 cm - LVOT Vmax 0.84 m/sec - LVOT VTI 15.53 cm - LVOT peak gradient 2.8 mmHg - LVOT mean gradient 1.9 mmHg - SV LVOT 52.45 ml - EUGENE (continuity Vmax) 3.01 cm2 - EUGENE (continuity VTI) 3.42 cm2 - Pulmonic Valve/Qp:Qs Name Value Normal Range PV Vmax 0.89 m/sec - PV peak gradient 3.16 mmHg - PV acceleration time 114.18 msec - Felton/IV: Voiding Method Toilet IV Catheter Type [Right Upper INT / Saline Lock arm] IV Catheter Type [Left INT / Saline Lock External Jugular] IV Catheter Type [Left Upper INT / Saline Lock arm] Active Medications - Current Medications Current Medications: Generic Name Dose Route Start Last Admin Trade Name Freq PRN Reason Stop Dose Admin Acetaminophen 650 mg 06/18/20 16:46 06/23/20 02:45 Tylenol PO 650 mg Q6H PRN Administration Pain MILD(1-3)/Fever >100.5/ROD Aspirin 325 mg 06/21/20 12:00 06/23/20 10:54 Aspirin PO 325 mg QDAY LILIAN Administration Atorvastatin Calcium 40 mg 06/21/20 22:00 06/22/20 21:22 Lipitor PO 40 mg QHS LILIAN Administration Carvedilol 6.25 mg 06/21/20 12:00 06/23/20 10:54 Coreg PO 6.25 mg BID LILIAN Administration Clonazepam 0.5 mg 06/22/20 22:00 06/23/20 10:54 Klonopin PO 0.5 mg BID LILIAN Administration Dextrose 25 ml 06/20/20 07:10 D50w (25gm) Syringe IV Q30MIN PRN Hypoglycemia Protocol Divalproex Sodium 500 mg 06/23/20 22:[address] PO BID LILIAN Sodium Chloride 1,000 mls @ 150 mls/hr 06/18/20 17:00 06/23/20 02:45 Nacl 0.9% 1000 Ml IV 150 mls/hr DIRECT LILIAN Administration Lisinopril 10 mg 06/21/20 12:00 06/23/20 10:55 Zestril PO 10 mg QDAY LILIAN Administration Lorazepam 2 mg 06/19/20 16:51 06/23/20 07:52 Ativan IV 2 mg Q4H PRN Administration Agitation Naloxone HCl 0.1 mg 06/18/20 16:49 Naloxone IV Q2MIN PRN Res Rate </= 8 or 02 SAT < 92% Olanzapine 10 mg 06/24/20 10:00 Zyprexa PO QDAY LILIAN Ondansetron HCl 4 mg 06/21/20 03:33 06/23/20 02:45 Zofran IV 4 mg Q4H PRN Administration Nausea Senna 8.6 mg 06/18/20 22:00 06/23/20 10:54 Senokot PO 8.6 mg BID LILIAN Administration Sodium Chloride 10 ml 06/18/20 22:00 06/23/20 10:55 Sodium Chloride Flush Syringe 10 Ml IV 10 ml BID LILIAN Administration Sodium Chloride 10 ml 06/18/20 16:46 Sodium Chloride Flush Syringe 10 Ml IV PRN PRN LINE FLUSH Trazodone HCl 50 mg 06/20/20 22:00 06/22/20 21:23 Desyrel PO 50 mg QHS LILIAN Administration Ziprasidone 20 mg 06/20/20 14:48 06/21/20 14:45 Geodon IM 20 mg Q6H PRN Administration Agitation Nutrition/Malnutrition Assess - Dietary Evaluation Nutrition/Malnutrition Findings: Nutrition Notes Start: 06/19/20 10:27 Freq: Status: Active Protocol: Document 06/21/20 13:00 LM (Rec: 06/21/20 13:06 LM [id number]) Nutrition Notes Need for Assessment generated from: Low BMI Initial or Follow up Reassessment Current Diagnosis Respiratory Failure Other Pertinent Diagnosis polysubstance abuse Current Diet Regular Labs/Tests Reviewed Pertinent Medications Reviewed Height 5 ft 8 in Weight 55 kg [place] Body Weight (kg) 70.00 BMI 18.4 Weight Status Underweight Subjective/Other Information Screen for low BMI. Already following pt. Pt extubated and diet advanced. Pt did not answer phone. Pt has 75% intakes for breakfast and lunch in chart. Percent of energy/protein needs met: 100%/100% Burn Absent Trauma Absent GI Symptoms None Current % PO Good (75-100%) Minimum of two criteria No physical signs of malnutrition #1 Nutrition Diagnosis Inadequate oral intake As Evidenced by Signs and Symptoms pt eating 75% of meals Diagnosis Progress(for reassessment Resolved documentation) Is patient on ventilator? No Is Patient Ambulatory and/or Out of Bed No REE-([facility]-confined to bed) 1754.100 Calculation Used for Recommendations [facility] Additional Notes Protein: 44-55g/kg Fluid: 1ml/kcal Nutrition Intervention Change Diet Order: continue Goal #1 Meet at least 80% of energy and protein needs Goal #2 Wt gain/maintenance Anticipated Discharge Needs: cardiac Follow-Up By: 06/25/20 Additional Comments F/U for stable intakes
[2020-06-23] MEDS: traZODone 50 MG TAB PO SCH (21:16)
[2020-06-23] MEDS: DIVALPROEX DR 500 MG TAB PO SCH (21:17)
[2020-06-24] MEDS: LORazepam 2 MG/ML VIAL IV PRN ×4 (04:10→20:18)
[2020-06-24 08:20] LABS: Hematocrit 40.4 % (35.5-45.6)
[2020-06-24] MEDS: clonazePAM 0.5 MG TAB PO SCH ×2 (09:14→23:49)
[2020-06-24] MEDS: SENNOSIDES 8.6 MG TAB PO SCH ×2 (09:14→23:49)
[2020-06-24] MEDS: ASPIRIN 325 MG TAB PO SCH (09:14)
[2020-06-24] MEDS: DIVALPROEX DR 500 MG TAB PO SCH ×2 (09:14→23:49)
--- NOTE | 2020-06-24 09:17 | Progress Note ---
Subjective - Reason for Consult Consult date: 06/24/20 Reason for consult: OD - Chief Complaint Chief complaint: The patient's medical record was reviewed and the patient's progress was discussed with the nursing staff. The sitter with the patient states he's been restless and agitated. The sitter says he has been attempt to get up. During my interview with the patient he is lying in asleep. He appears to be reaching for something in the air. He arouses easily. A sitter is at bedside. The patient is a/o x 2. He appeared anxious. He is disheveled. He denies SI/HI. The patient also denies hallucinations. The patient states, "I'm good. I'm just tired." REVIEW OF SYSTEMS Constitutional: Negative for weight loss ENT: Negative for stridor Respiratory: Negative for cough or hemoptysis All other systems reviewed and are negative MSE Appearance: Wearing appropriate clothing. Disheveled. Behavior: cooperative, has been restless and agitated for sitter. Disorganized Mood: "good" Affect: Restricted Thought Process: Goal directed Speech: Normal tone and pace Thought Content Suicidal: Denies Homicidal: Denies Hallucinations: Denies, but observed hallucinating Delusions: none elicited Consciousness: alert. Cognition/Memory: Limited Insight/Judgment: Impaired Diagnoses: Acute Psychosis Polysubstance Dependance Treatment Plan Continue current regimen Sitter: Defer to primary Medical: Per primary Disposition: Recommend acute inpatient psychiatric treatment Will follow. Thank you for this consult. Mental Status Exam - Vital signs Last Vital Signs Temp 97.5 F L 06/24/20 04:32 Pulse 105 H 06/24/20 04:32 Resp 20 06/24/20 04:32 BP 130/84 06/24/20 04:32 Pulse Ox 99 06/24/20 04:32
[2020-06-24] MEDS: LISINOPRIL 10 MG TAB PO SCH (09:33)
[2020-06-24] MEDS: carvediloL 6.25 MG TAB PO SCH ×2 (09:33→23:49)
--- NOTE | 2020-06-24 10:08 | Progress Note ---
Assessment and Plan Assessment and plan: Patient is a 34-year-old male with past medical history of drug use prior history in 2013 of 1013 which was rescinded at the time shortly after presents to the ED via EMS after found unresponsive along tremor tracks and pulmonary studies showing multiple drugs in his system including PCP, cocaine, THC, o pioids. According to information or review of records patient had an acquaintance who states that the patient uses drugs. EMS attempted to administer Narcan 4 mg in route and noted about a 45 seconds seizure-like activity which was shortly after the Narcan was given and resolved. Otherwise patient was unarousable and intubated for airway protection. There were also many unidentified pills laying around the patient unknown if the patient had taken those medications. He is currently intubated at the time of my evaluation imaging studies are unremarkable except for CT head which shows a possible left anterior maxillary sinus wall fracture. Laboratory studies shows mild elevated troponin and leukocytosis. Chest x-ray; IMPRESSION: Endotracheal tube is present and appears to be in good position. No acute pulmonary or pleural abnormality Unresponsive state, Polysubstance abuse, Elevated troponin, Lactic acidosis CT cervical spine: IMPRESSION: 1. No acute fracture or subluxation in the spine in neutral position. CT head: IMPRESSION: 1. No acute intracranial abnormality. 2. Possible left maxillary sinus fracture. Further evaluation with maxillofacial CT recommended. 06/20: Clinical improving, discontinue restraints. Anticipate discharge in am pending cardiac work up 06/21: Patient awaiting cardiac work-up. Psych input is noted patient now on a 1013 recommend an inpatient psych placement. Leukocytosis and lactic acidosis has improved. No further seizure episode is noted. Lexiscan planned for a.m. due to newly diagnosed cardiomyopathy. Patient started on Coreg and lisinopril. 06/22: Awaiting cardiomyopathy work up. Continues with intermittent owing at night and unsteady gait but otherwise awake and oriented x3 Psych input is noted with adjustment of medication. 06/23: Patient clinically stable, for stress test this am was done and negative Medical stable for discharge FOR INPATIENT PLACEMENT 06/24: Patient presented as noted above with unresponsiveness secondary to rebecca ysubstance abuse. Toxicology was positive for marijuana, cocaine, amphetamines and opioids. He was subsequently extubated. Continues on 1013 discussion with the spouse indicates that he has been battling with substance abuse for a long time. Currently is homeless by choice. Psychiatric team evaluated him and started him on some antipsychotic medications for mood disorder secondary to substance abuse. Lexiscan was done during hospitalization which was negative. His mental status has significantly improved but he is pending placement to inpatient psych he remains medically stable. Acute respiratory failure secondary to drug overdose Polysubstance abuse with sedation Acute metabolic encephalopathy secondary to substance abuse Cardiomyopathy with EF of 25 to 30% on echo. Acute diastolic congestive heart failure Leukocytosis rule out aspiration pneumonia Presumed seizure Elevated troponin possible and NSTEMI secondary to polysubstance abuse Systemic inflammatory response syndrome No evidence of sepsis Mixed hyperlipidemia Lactic acidosis Moderate protein calorie malnutrition with cachexia: Dietitian following Plan Continue supportive care. Discontinue [place] Patient has been successfully extubated Cardiology input noted anticipate ischemic work-up prior to discharge. Discontinue abx. Elevated blood pressure and tachycardia likely secondary to residual effect of substance abuse and altered mental status with associated anxiety. Fluid resuscitation If no clinical improvement in mental status will obtain psych evaluation Seizure precautions DVT and GI prophylaxis History Interval history: Patient seen and examined in no acute distress, much more awake. following commands. Lying in bed comfortably. States that he wants to be discharged Hospitalist Physical - Physical exam Narrative exam: VITAL SIGNS: Reviewed. GENERAL: The patient appears normally developed, cachectic MUCH IMPROVED but much improved vital signs as documented. SITTER NOTED HEAD: No signs of head trauma. EYES: Pupils are equal. EARS: Hearing is intact MOUTH: NO DEFORMITY NECK: No adenopathy, no JVD. CHEST: Chest with transmitted bronchovesicular sounds with no wheezing or rales CARDIAC: Regular rate and rhythm. S1 and S2, without murmurs, gallops, or rubs. VASCULAR: No Edema. Peripheral pulses normal and equal in all extremities. ABDOMEN: Soft, non tender and non distended. No rebound or guarding, and no masses palpated. Bowel Sounds normal. MUSCULOSKELETAL: Good range of motion of all major joints. Extremities without clubbing, cyanosis or edema. NEUROLOGIC EXAM: Alert and oriented x 3 no focal sensory or strength deficits. Speech normal. Not fully following commands PSYCHIATRIC: Mood normal SKIN: Multiple punctate lesions and abrasion detail exam as documented in skin assessment - Constitutional Vitals: Temp Pulse Resp BP Pulse Ox 97.5 F L 82 20 117/80 99 06/24/20 04:32 06/24/20 09:33 06/24/20 04:32 06/24/20 09:33 06/24/20 04:32 General appearance: Present: no acute distress HEART Score - HEART Score Troponin: Troponin T < 0.010 ng/mL (0.00-0.029) 06/22/20 07:48 Results - Labs CBC & Chem 7: 06/24/20 07:13 06/19/20 04:33 Labs: Laboratory Last Values WBC 11.1 K/mm3 (4.5-11.0) H 06/19/20 04:33 RBC 4.25 M/mm3 (3.65-5.03) 06/19/20 04:33 Hgb 14.0 gm/dl (11.8-15.2) 06/24/20 07:13 Hct 40.4 % (35.5-45.6) 06/24/20 07:13 MCV 83 fl (84-94) L 06/19/20 04:33 MCH 28 pg (28-32) 06/19/20 04:33 MCHC 33 % (32-34) 06/19/20 04:33 RDW 15.5 % (13.2-15.2) H 06/19/20 04:33 Plt Count 409 K/mm3 (140-440) 06/24/20 07:13 Lymph % (Auto) 9.3 % (13.4-35.0) L 06/18/20 15:04 [place] % (Auto) 5.7 % (0.0-7.3) 06/18/20 15:04 Eos % (Auto) 0.1 % (0.0-4.3) 06/18/20 15:04 Baso % (Auto) 0.5 % (0.0-1.8) 06/18/20 15:04 Lymph # 1.6 K/mm3 (1.2-5.4) 06/18/20 15:04 [place] # 1.0 K/mm3 (0.0-0.8) H 06/18/20 15:04 Eos # 0.0 K/mm3 (0.0-0.4) 06/18/20 15:04 Baso # 0.1 K/mm3 (0.0-0.1) 06/18/20 15:04 Seg Neutrophils % 84.4 % (40.0-70.0) H 06/18/20 15:04 Seg Neutrophils # 14.9 K/mm3 (1.8-7.7) H 06/18/20 15:04 PT 12.6 Sec. (12.2-14.9) 06/18/20 15:04 INR 0.93 (0.87-1.13) 06/18/20 15:04 APTT 32.9 Sec. (24.2-36.6) 06/18/20 15:04 Heparin Anti-Xa Level < 0.10 U.I./ml (0.3-0.7) L 06/21/20 08:18 ABG pH 7.373 pH Units (7.350-7.450) 06/19/20 03:00 ABG pCO2 47.9 mm Hg 06/19/20 03:00 ABG pO2 119.8 mm Hg (80.0-90.0) H 06/19/20 03:00 ABG HCO3 27.3 mmol/L (20.0-26.0) H 06/19/20 03:00 ABG O2 Saturation 98.2 % (95.0-99.0) 06/19/20 03:00 ABG O2 Content 16.1 (0.0-44) 06/19/20 03:00 ABG Base Excess 1.5 mmol/L (-2.0-3.0) 06/19/20 03:00 ABG Hemoglobin 11.8 gm/dl (14.0-18.0) L 06/19/20 03:00 ABG Carboxyhemoglobin 1.2 % (0.0-5.0) 06/19/20 03:00 ABG Methemoglobin 0.5 % (0.0-1.5) 06/19/20 03:00 Oxyhemoglobin 96.5 % (95.0-99.0) 06/19/20 03:00 FiO2 50 % 06/19/20 03:00 Sodium 144 mmol/L (137-145) 06/19/20 04:33 Potassium 4.1 mmol/L (3.6-5.0) 06/19/20 04:33 Chloride 106.5 mmol/L (98-107) 06/19/20 04:33 Carbon Dioxide 25 mmol/L (22-30) D 06/19/20 04:33 Anion Gap 17 mmol/L 06/19/20 04:33 BUN 13 mg/dL (9-20) 06/19/20 04:33 Creatinine 0.7 mg/dL (0.8-1.3) L 06/19/20 04:33 Estimated GFR > 60 ml/min 06/19/20 04:33 BUN/Creatinine Ratio 19 % 06/19/20 04:33 Glucose 88 mg/dL (75-100) 06/19/20 04:33 POC Glucose 119 (70-105) H 06/24/20 08:05 Lactic Acid 1.70 mmol/L (0.7-2.0) 06/18/20 22:48 Calcium 8.3 mg/dL (8.4-10.2) L 06/19/20 04:33 Total Bilirubin 0.60 mg/dL (0.1-1.2) 06/19/20 04:33 AST 45 units/L (5-40) H 06/19/20 04:33 ALT 46 units/L (7-56) 06/19/20 04:33 Alkaline Phosphatase 90 units/L (35-129) 06/19/20 04:33 Ammonia 64.0 umol/L (25-60) H 06/18/20 15:04 Total Creatine Kinase 1007 units/L (55-170) H 06/19/20 01:08 CK-MB (CK-2) 16.6 ng/mL (0.0-4.0) H 06/19/20 01:08 CK-MB (CK-2) Rel Index 1.6 (0-4) 06/19/20 01:08 Troponin T < 0.010 ng/mL (0.00-0.029) 06/22/20 07:48 Total Protein 6.3 g/dL (6.3-8.2) D 06/19/20 04:33 Albumin 2.9 g/dL (3.9-5) L 06/19/20 04:33 Albumin/Globulin Ratio 0.9 % 06/19/20 04:33 Triglycerides 160 mg/dL (2-149) H 06/18/20 14:36 Cholesterol 146 mg/dL (50-199) 06/18/20 14:36 LDL Cholesterol Direct 87 mg/dL (50-130) 06/18/20 14:36 HDL Cholesterol 49 mg/dL (40-59) 06/18/20 14:36 Cholesterol/HDL Ratio 2.97 % 06/18/20 14:36 TSH 0.743 mlU/mL (0.270-4.200) 06/18/20 14:36 Urine Color Yellow (Yellow) 06/18/20 13:38 Urine Turbidity Clear (Clear) 06/18/20 13:38 Urine pH 5.0 (5.0-7.0) 06/18/20 13:38 Ur Specific [place] 1.024 (1.003-1.030) 06/18/20 13:38 Urine Protein <15 mg/dl mg/dL (Negative) 06/18/20 13:38 Urine Glucose (UA) Neg mg/dL (Negative) 06/18/20 13:38 Urine Ketones Tr mg/dL (Negative) 06/18/20 13:38 Urine Blood Sm (Negative) 06/18/20 13:38 Urine Nitrite Neg (Negative) 06/18/20 13:38 Urine Bilirubin Neg (Negative) 06/18/20 13:38 Urine Urobilinogen 2.0 mg/dL (<2.0) 06/18/20 13:38 Ur Leukocyte Esterase Neg (Negative) 06/18/20 13:38 Urine WBC (Auto) 3.0 /HPF (0.0-6.0) 06/18/20 13:38 Urine RBC (Auto) 4.0 /HPF (0.0-6.0) 06/18/20 13:38 Urine Bacteria (Auto) 2+ /HPF (Negative) 06/18/20 13:38 Nasal Screen MRSA (PCR) Positive (Negative) 06/19/20 08:50 Salicylates < 0.3 mg/dL (2.8-20.0) L 06/18/20 14:36 Urine Opiates Screen Presumptive positive 06/18/20 13:38 Urine Methadone Screen Presumptive negative 06/18/20 13:38 Acetaminophen < 5.0 ug/mL (10.0-30.0) L 06/18/20 14:36 Ur Barbiturates Screen Presumptive negative 06/18/20 13:38 Ur Phencyclidine Scrn Presumptive negative 06/18/20 13:38 Ur Amphetamines Screen Presumptive positive 06/18/20 13:38 U Benzodiazepines Scrn Presumptive negative 06/18/20 13:38 Urine Cocaine Screen Presumptive positive 06/18/20 13:38 U Marijuana (THC) Screen Presumptive positive 06/18/20 13:38 Drugs of Abuse Note Disclamer 06/18/20 13:38 Plasma/Serum Alcohol < 0.01 % (0-0.07) 06/18/20 14:36 Microbiology: Microbiology 06/18/20 Unknown Peripheral/Venous Blood Culture - Final NO GROWTH AFTER 5 DAYS 06/18/20 15:07 Peripheral/Venous Blood Culture - Final NO GROWTH AFTER 5 DAYS - Diagnostic Impressions Diagnostic Impressions: Echocardiogram 06/18/20 16:54 Transthoracic Echocardiogram Indication: Chest pain BP: 154/93 HR: 102 Conclusions *Mild concentric left ventricular hypertrophy is observed. *Global left ventricular systolic function is moderate to severely decreased. *The estimated ejection fraction is 25-30%. The anterior wall segment is hypokinetic. *Abnormal left ventricular diastolic filling is observed, consistent with impaired relaxation. *There is no pericardial effusion. Findings Left Ventricle: The left ventricular chamber size is normal. Mild concentric left ventricular hypertrophy is observed. Global left ventricular systolic function is moderate to severely decreased. The estimated ejection fraction is 25-30%. The anterior wall segment is hypokinetic. Abnormal left ventricular diastolic filling is observed, consistent with impaired relaxation. Left Atrium: The left atrial chamber size is normal. Right Ventricle: The right ventricular cavity size is normal. Right Atrium: The right atrial cavity size is normal. Aortic Valve: The aortic valve structure is normal. There is no evidence of aortic regurgitation. Mitral Valve: The mitral valve leaflets are mildly thickened. There is no evidence of mitral regurgitation. Tricuspid Valve: The tricuspid valve leaflets are normal. There is no evidence of tricuspid valve regurgitation. Pulmonic Valve: The pulmonic valve appears normal. There is trace pulmonic regurgitation. Pericardium: There is no pericardial effusion. Venous: The inferior vena cava appears normal in size. Measurements Chambers 2D Name Value Normal Range IVSd (2D) 1.21 cm (0.6 - 1.1) LVPWd (2D) 1.05 cm (0.6 - 1.1) LVIDd (2D) 4.76 cm (3.7 - 5.6) LVIDs (2D) 3.92 cm (2 - 3.8) LV FS (2D) 17.6 % - EF Teichholz (2D) 36.63 % - Ao root diameter (2D) 3.79 cm (2 - 3.7) Volumes/Mass Name Value Normal Range LA ESV SP 4CH (A/L) 19.26 ml - LA ESV SP 2CH (A/L) 15.3 ml - LA ESV BP (A/L) 18.22 ml - LA ESV BP (A/L) index 11.04 ml/m2 - LA ESV SP 4CH (MOD) 16.91 ml - LA ESV SP 2CH (MOD) 14.18 ml - LA ESV BP (MOD) 16.27 ml - LA ESV BP (MOD) index 9.86 ml/m2 - Diastolic/Systolic Function Name Value Normal Range MV E-wave Vmax 0.37 m/sec - MV deceleration time 238.43 msec - MV A-wave Vmax 0.56 m/sec - MV E:A ratio 0.66 ratio - Aortic Valve Name Value Normal Range AV Vmax 0.94 m/sec - AV VTI 15.33 cm - AV peak gradient 3.52 mmHg - AV mean gradient 2.22 mmHg - LVOT diameter 2.07 cm - LVOT Vmax 0.84 m/sec - LVOT VTI 15.53 cm - LVOT peak gradient 2.8 mmHg - LVOT mean gradient 1.9 mmHg - SV LVOT 52.45 ml - EUGENE (continuity Vmax) 3.01 cm2 - EUGENE (continuity VTI) 3.42 cm2 - Pulmonic Valve/Qp:Qs Name Value Normal Range PV Vmax 0.89 m/sec - PV peak gradient 3.16 mmHg - PV acceleration time 114.18 msec - [place]/IV: Voiding Method Incontinent IV Catheter Type [Right Upper INT / Saline Lock arm] IV Catheter Type [Left INT / Saline Lock External Jugular] IV Catheter Type [Left Upper INT / Saline Lock arm] Active Medications - Current Medications Current Medications: Generic Name Dose Route Start Last Admin Trade Name Freq PRN Reason Stop Dose Admin Acetaminophen 650 mg 06/18/20 16:46 06/23/20 02:45 Tylenol PO 650 mg Q6H PRN Administration Pain MILD(1-3)/Fever >100.5/ROD Aspirin 325 mg 06/21/20 12:00 06/24/20 09:14 Aspirin PO 325 mg QDAY LILIAN Administration Atorvastatin Calcium 40 mg 06/21/20 22:00 06/23/20 21:17 Lipitor PO 40 mg QHS LILIAN Administration Carvedilol 6.25 mg 06/21/20 12:00 06/24/20 09:33 Coreg PO Not Given BID LILIAN Clonazepam 0.5 mg 06/22/20 22:00 06/24/20 09:14 Klonopin PO 0.5 mg BID LILIAN Administration Dextrose 25 ml 06/20/20 07:10 D50w (25gm) Syringe IV Q30MIN PRN Hypoglycemia Protocol Divalproex Sodium 500 mg 06/23/20 22:00 06/24/20 09:[address] PO 500 mg BID LILIAN Administration Sodium Chloride 1,000 mls @ 150 mls/hr 06/18/20 17:00 06/23/20 02:45 Nacl 0.9% 1000 Ml IV 150 mls/hr DIRECT LILIAN Administration Lisinopril 10 mg 06/21/20 12:00 06/24/20 09:33 Zestril PO Not Given QDAY LILIAN Lorazepam 2 mg 06/19/20 16:51 06/24/20 09:15 Ativan IV 2 mg Q4H PRN Administration Agitation Naloxone HCl 0.1 mg 06/18/20 16:49 Naloxone IV Q2MIN PRN Res Rate </= 8 or 02 SAT < 92% Olanzapine 10 mg 06/24/20 10:00 06/24/20 09:15 Zyprexa PO 10 mg QDAY LILIAN Administration Ondansetron HCl 4 mg 06/21/20 03:33 06/23/20 02:45 Zofran IV 4 mg Q4H PRN Administration Nausea Senna 8.6 mg 06/18/20 22:00 06/24/20 09:14 Senokot PO 8.6 mg BID LILIAN Administration Sodium Chloride 10 ml 06/18/20 22:00 06/24/20 09:16 Sodium Chloride Flush Syringe 10 Ml IV 10 ml BID LILIAN Administration Sodium Chloride 10 ml 06/18/20 16:46 Sodium Chloride Flush Syringe 10 Ml IV PRN PRN LINE FLUSH Trazodone HCl 50 mg 06/20/20 22:00 06/23/20 21:16 Desyrel PO 50 mg QHS LILIAN Administration Ziprasidone 20 mg 06/20/20 14:48 06/21/20 14:45 Geodon IM 20 mg Q6H PRN Administration Agitation Nutrition/Malnutrition Assess - Dietary Evaluation Nutrition/Malnutrition Findings: Nutrition Notes Start: 06/19/20 10:27 Freq: Status: Active Protocol: Document 06/21/20 13:00 LM (Rec: 06/21/20 13:06 LM [id number]) Nutrition Notes Need for Assessment generated from: Low BMI Initial or Follow up Reassessment Current Diagnosis Respiratory Failure Other Pertinent Diagnosis polysubstance abuse Current Diet Regular Labs/Tests Reviewed Pertinent Medications Reviewed Height 5 ft 8 in Weight 55 kg [place] Body Weight (kg) 70.00 BMI 18.4 Weight Status Underweight Subjective/Other Information Screen for low BMI. Already following pt. Pt extubated and diet advanced. Pt did not answer phone. Pt has 75% intakes for breakfast and lunch in chart. Percent of energy/protein needs met: 100%/100% Burn Absent Trauma Absent GI Symptoms None Current % PO Good (75-100%) Minimum of two criteria No physical signs of malnutrition #1 Nutrition Diagnosis Inadequate oral intake As Evidenced by Signs and Symptoms pt eating 75% of meals Diagnosis Progress(for reassessment Resolved documentation) Is patient on ventilator? No Is Patient Ambulatory and/or Out of Bed No REE-([facility]-confined to bed) 1754.100 Calculation Used for Recommendations [facility] Additional Notes Protein: 44-55g/kg Fluid: 1ml/kcal Nutrition Intervention Change Diet Order: continue Goal #1 Meet at least 80% of energy and protein needs Goal #2 Wt gain/maintenance Anticipated Discharge Needs: cardiac Follow-Up By: 06/25/20 Additional Comments F/U for stable intakes
[2020-06-24] MEDS ORDERED: WATER FOR INJ Sterile (PF) 10 ML ONE (18:06)
[2020-06-24] MEDS: ZIPRASIDONE MESYLATE 20 MG VIAL IM PRN (18:09)
[2020-06-24] MEDS: traZODone 50 MG TAB PO SCH (23:49)
[2020-06-25] MEDS: LORazepam 2 MG/ML VIAL IV PRN ×4 (02:57→18:41)
--- NOTE | 2020-06-25 09:17 | Progress Note ---
Subjective - Reason for Consult Consult date: 06/25/20 Reason for consult: MHE Requesting physician: MER TAYLOR - Chief Complaint Chief complaint: Psych Progress HPI Walked into patients room this AM, he had defecated on himself and everywhere, bed side sitter helping with clean up. Will interview tomorrow. REVIEW OF SYSTEMS Constitutional: Negative for weight loss ENT: Negative for stridor Respiratory: Negative for cough or hemoptysis All other systems reviewed and are negative MSE Appearance: Wearing appropriate clothing. Disheveled. Behavior: cooperative, has been restless and agitated for sitter. Disorganized Mood: "good" Affect: Restricted Thought Process: Goal directed Speech: Normal tone and pace Thought Content Suicidal: Denies Homicidal: Denies Hallucinations: Denies, but observed hallucinating Delusions: none elicited Consciousness: alert. Cognition/Memory: Limited Insight/Judgment: Impaired Diagnoses: Acute Psychosis Polysubstance Dependance Treatment Plan MEDICATIONS: Meds started, prozac and Haldol Risks, benefits and alternatives of medications discussed with the patient, questions answered and consent obtained from patient. PSYCHOTHERAPY: Supportive psychotherapy provided MEDICAL: Per primary team DELIRIUM PRECAUTIONS: Please re-orient patient frequently, keep lights on during the day, and minimize benzodiazepines and opiates as these medications could worsen patient's confusion. ACID PAINTER: DISPOSITION: Recommend acute inpatient psychiatric hospitalization at this time LEGAL STATUS: 1013 FOLLOW-UP: Will follow Thank you for the consult. Please contact with any questions and/or concerns. Mental Status Exam - Vital signs Last Vital Signs Temp 97.2 F L 06/24/20 21:33 Pulse 102 H 06/24/20 23:49 Resp 18 06/24/20 21:33 BP 105/72 06/24/20 23:49 Pulse Ox 96 06/24/20 21:33
[2020-06-25] MEDS: carvediloL 6.25 MG TAB PO SCH ×2 (10:11→22:00)
[2020-06-25] MEDS: clonazePAM 0.5 MG TAB PO SCH ×3 (10:11→22:00)
[2020-06-25] MEDS: SENNOSIDES 8.6 MG TAB PO SCH ×4 (10:11→22:00)
[2020-06-25] MEDS: DIVALPROEX DR 500 MG TAB PO SCH ×3 (10:11→22:00)
[2020-06-25] MEDS: LISINOPRIL 10 MG TAB PO SCH (10:11)
[2020-06-25] MEDS: ASPIRIN 325 MG TAB PO SCH (10:11)
--- NOTE | 2020-06-25 10:53 | Progress Note ---
Assessment and Plan Assessment and plan: Patient is a 34-year-old male with past medical history of drug use prior history in 2013 of 1013 which was rescinded at the time shortly after presents to the ED via EMS after found unresponsive along tremor tracks and pulmonary studies showing multiple drugs in his system including PCP, cocaine, THC, o pioids. According to information or review of records patient had an acquaintance who states that the patient uses drugs. EMS attempted to administer Narcan 4 mg in route and noted about a 45 seconds seizure-like activity which was shortly after the Narcan was given and resolved. Otherwise patient was unarousable and intubated for airway protection. There were also many unidentified pills laying around the patient unknown if the patient had taken those medications. He is currently intubated at the time of my evaluation imaging studies are unremarkable except for CT head which shows a possible left anterior maxillary sinus wall fracture. Laboratory studies shows mild elevated troponin and leukocytosis. Chest x-ray; IMPRESSION: Endotracheal tube is present and appears to be in good position. No acute pulmonary or pleural abnormality Unresponsive state, Polysubstance abuse, Elevated troponin, Lactic acidosis CT cervical spine: IMPRESSION: 1. No acute fracture or subluxation in the spine in neutral position. CT head: IMPRESSION: 1. No acute intracranial abnormality. 2. Possible left maxillary sinus fracture. Further evaluation with maxillofacial CT recommended. 06/20: Clinical improving, discontinue restraints. Anticipate discharge in am pending cardiac work up 06/21: Patient awaiting cardiac work-up. Psych input is noted patient now on a 1013 recommend an inpatient psych placement. Leukocytosis and lactic acidosis has improved. No further seizure episode is noted. Lexiscan planned for a.m. due to newly diagnosed cardiomyopathy. Patient started on Coreg and lisinopril. 06/22: Awaiting cardiomyopathy work up. Continues with intermittent owing at night and unsteady gait but otherwise awake and oriented x3 Psych input is noted with adjustment of medication. 06/23: Patient clinically stable, for stress test this am was done and negative Medical stable for discharge FOR INPATIENT PLACEMENT 06/24: Patient presented as noted above with unresponsiveness secondary to rebecca ysubstance abuse. Toxicology was positive for marijuana, cocaine, amphetamines and opioids. He was subsequently extubated. Continues on 1013 discussion with the spouse indicates that he has been battling with substance abuse for a long time. Currently is homeless by choice. Psychiatric team evaluated him and started him on some antipsychotic medications for mood disorder secondary to substance abuse. Lexiscan was done during hospitalization which was negative. His mental status has significantly improved but he is pending placement to inpatient psych he remains medically stable. 06/25. No change in medical condition. Still. awaiting DC to inpatient psych. Acute respiratory failure secondary to drug overdose Polysubstance abuse with sedation Acute metabolic encephalopathy secondary to substance abuse Cardiomyopathy with EF of 25 to 30% on echo. Acute diastolic congestive heart failure Leukocytosis rule out aspiration pneumonia Presumed seizure Elevated troponin possible and NSTEMI secondary to polysubstance abuse Systemic inflammatory response syndrome No evidence of sepsis Mixed hyperlipidemia Lactic acidosis Moderate protein calorie malnutrition with cachexia: Dietitian following Plan Continue supportive care. Had negative stress test. Cardiology recommends outpatient follow up with Dr Vick in 2-4 weeks Elevated blood pressure and tachycardia likely secondary to residual effect of substance abuse and altered mental status with associated anxiety. Seizure precautions DVT and GI prophylaxis History Interval history: See assessment and plan Hospitalist Physical - Constitutional Vitals: Temp Pulse Resp BP Pulse Ox 97.5 F L 99 H 18 120/68 100 06/25/20 10:03 06/25/20 10:11 06/25/20 10:03 06/25/20 10:11 06/25/20 10:03 General appearance: Present: no acute distress - EENT Eyes: Present: PERRL - Neck Neck: Present: supple - Respiratory Respiratory: bilateral: CTA - Cardiovascular Heart Sounds: Present: S1 & S2 - Abdominal General gastrointestinal: soft, non-tender, non-distended - Neurologic Neurologic: CNII-XII intact HEART Score - HEART Score Troponin: Troponin T < 0.010 ng/mL (0.00-0.029) 06/22/20 07:48 Results - Labs CBC & Chem 7: 06/24/20 07:13 06/19/20 04:33 Labs: Laboratory Last Values WBC 11.1 K/mm3 (4.5-11.0) H 06/19/20 04:33 RBC 4.25 M/mm3 (3.65-5.03) 06/19/20 04:33 Hgb 14.0 gm/dl (11.8-15.2) 06/24/20 07:13 Hct 40.4 % (35.5-45.6) 06/24/20 07:13 MCV 83 fl (84-94) L 06/19/20 04:33 MCH 28 pg (28-32) 06/19/20 04:33 MCHC 33 % (32-34) 06/19/20 04:33 RDW 15.5 % (13.2-15.2) H 06/19/20 04:33 Plt Count 409 K/mm3 (140-440) 06/24/20 07:13 Lymph % (Auto) 9.3 % (13.4-35.0) L 06/18/20 15:04 [place] % (Auto) 5.7 % (0.0-7.3) 06/18/20 15:04 Eos % (Auto) 0.1 % (0.0-4.3) 06/18/20 15:04 Baso % (Auto) 0.5 % (0.0-1.8) 06/18/20 15:04 Lymph # 1.6 K/mm3 (1.2-5.4) 06/18/20 15:04 [place] # 1.0 K/mm3 (0.0-0.8) H 06/18/20 15:04 Eos # 0.0 K/mm3 (0.0-0.4) 06/18/20 15:04 Baso # 0.1 K/mm3 (0.0-0.1) 06/18/20 15:04 Seg Neutrophils % 84.4 % (40.0-70.0) H 06/18/20 15:04 Seg Neutrophils # 14.9 K/mm3 (1.8-7.7) H 06/18/20 15:04 PT 12.6 Sec. (12.2-14.9) 06/18/20 15:04 INR 0.93 (0.87-1.13) 06/18/20 15:04 APTT 32.9 Sec. (24.2-36.6) 06/18/20 15:04 Heparin Anti-Xa Level < 0.10 U.I./ml (0.3-0.7) L 06/21/20 08:18 ABG pH 7.373 pH Units (7.350-7.450) 06/19/20 03:00 ABG pCO2 47.9 mm Hg 06/19/20 03:00 ABG pO2 119.8 mm Hg (80.0-90.0) H 06/19/20 03:00 ABG HCO3 27.3 mmol/L (20.0-26.0) H 06/19/20 03:00 ABG O2 Saturation 98.2 % (95.0-99.0) 06/19/20 03:00 ABG O2 Content 16.1 (0.0-44) 06/19/20 03:00 ABG Base Excess 1.5 mmol/L (-2.0-3.0) 06/19/20 03:00 ABG Hemoglobin 11.8 gm/dl (14.0-18.0) L 06/19/20 03:00 ABG Carboxyhemoglobin 1.2 % (0.0-5.0) 06/19/20 03:00 ABG Methemoglobin 0.5 % (0.0-1.5) 06/19/20 03:00 Oxyhemoglobin 96.5 % (95.0-99.0) 06/19/20 03:00 FiO2 50 % 06/19/20 03:00 Sodium 144 mmol/L (137-145) 06/19/20 04:33 Potassium 4.1 mmol/L (3.6-5.0) 06/19/20 04:33 Chloride 106.5 mmol/L (98-107) 06/19/20 04:33 Carbon Dioxide 25 mmol/L (22-30) D 06/19/20 04:33 Anion Gap 17 mmol/L 06/19/20 04:33 BUN 13 mg/dL (9-20) 06/19/20 04:33 Creatinine 0.7 mg/dL (0.8-1.3) L 06/19/20 04:33 Estimated GFR > 60 ml/min 06/19/20 04:33 BUN/Creatinine Ratio 19 % 06/19/20 04:33 Glucose 88 mg/dL (75-100) 06/19/20 04:33 POC Glucose 117 (70-105) H 06/25/20 07:46 Lactic Acid 1.70 mmol/L (0.7-2.0) 06/18/20 22:48 Calcium 8.3 mg/dL (8.4-10.2) L 06/19/20 04:33 Total Bilirubin 0.60 mg/dL (0.1-1.2) 06/19/20 04:33 AST 45 units/L (5-40) H 06/19/20 04:33 ALT 46 units/L (7-56) 06/19/20 04:33 Alkaline Phosphatase 90 units/L (35-129) 06/19/20 04:33 Ammonia 64.0 umol/L (25-60) H 06/18/20 15:04 Total Creatine Kinase 1007 units/L (55-170) H 06/19/20 01:08 CK-MB (CK-2) 16.6 ng/mL (0.0-4.0) H 06/19/20 01:08 CK-MB (CK-2) Rel Index 1.6 (0-4) 06/19/20 01:08 Troponin T < 0.010 ng/mL (0.00-0.029) 06/22/20 07:48 Total Protein 6.3 g/dL (6.3-8.2) D 06/19/20 04:33 Albumin 2.9 g/dL (3.9-5) L 06/19/20 04:33 Albumin/Globulin Ratio 0.9 % 06/19/20 04:33 Triglycerides 160 mg/dL (2-149) H 06/18/20 14:36 Cholesterol 146 mg/dL (50-199) 06/18/20 14:36 LDL Cholesterol Direct 87 mg/dL (50-130) 06/18/20 14:36 HDL Cholesterol 49 mg/dL (40-59) 06/18/20 14:36 Cholesterol/HDL Ratio 2.97 % 06/18/20 14:36 TSH 0.743 mlU/mL (0.270-4.200) 06/18/20 14:36 Urine Color Yellow (Yellow) 06/18/20 13:38 Urine Turbidity Clear (Clear) 06/18/20 13:38 Urine pH 5.0 (5.0-7.0) 06/18/20 13:38 Ur Specific [place] 1.024 (1.003-1.030) 06/18/20 13:38 Urine Protein <15 mg/dl mg/dL (Negative) 06/18/20 13:38 Urine Glucose (UA) Neg mg/dL (Negative) 06/18/20 13:38 Urine Ketones Tr mg/dL (Negative) 06/18/20 13:38 Urine Blood Sm (Negative) 06/18/20 13:38 Urine Nitrite Neg (Negative) 06/18/20 13:38 Urine Bilirubin Neg (Negative) 06/18/20 13:38 Urine Urobilinogen 2.0 mg/dL (<2.0) 06/18/20 13:38 Ur Leukocyte Esterase Neg (Negative) 06/18/20 13:38 Urine WBC (Auto) 3.0 /HPF (0.0-6.0) 06/18/20 13:38 Urine RBC (Auto) 4.0 /HPF (0.0-6.0) 06/18/20 13:38 Urine Bacteria (Auto) 2+ /HPF (Negative) 06/18/20 13:38 Nasal Screen MRSA (PCR) Positive (Negative) 06/19/20 08:50 Salicylates < 0.3 mg/dL (2.8-20.0) L 06/18/20 14:36 Urine Opiates Screen Presumptive positive 06/18/20 13:38 Urine Methadone Screen Presumptive negative 06/18/20 13:38 Acetaminophen < 5.0 ug/mL (10.0-30.0) L 06/18/20 14:36 Ur Barbiturates Screen Presumptive negative 06/18/20 13:38 Ur Phencyclidine Scrn Presumptive negative 06/18/20 13:38 Ur Amphetamines Screen Presumptive positive 06/18/20 13:38 U Benzodiazepines Scrn Presumptive negative 06/18/20 13:38 Urine Cocaine Screen Presumptive positive 06/18/20 13:38 U Marijuana (THC) Screen Presumptive positive 06/18/20 13:38 Drugs of Abuse Note Disclamer 06/18/20 13:38 Plasma/Serum Alcohol < 0.01 % (0-0.07) 06/18/20 14:36 - Diagnostic Impressions Diagnostic Impressions: Echocardiogram 06/18/20 16:54 Transthoracic Echocardiogram Indication: Chest pain BP: 154/93 HR: 102 Conclusions *Mild concentric left ventricular hypertrophy is observed. *Global left ventricular systolic function is moderate to severely decreased. *The estimated ejection fraction is 25-30%. The anterior wall segment is hypokinetic. *Abnormal left ventricular diastolic filling is observed, consistent with impaired relaxation. *There is no pericardial effusion. Findings Left Ventricle: The left ventricular chamber size is normal. Mild concentric left ventricular hypertrophy is observed. Global left ventricular systolic function is moderate to severely decreased. The estimated ejection fraction is 25-30%. The anterior wall segment is hypokinetic. Abnormal left ventricular diastolic filling is observed, consistent with impaired relaxation. Left Atrium: The left atrial chamber size is normal. Right Ventricle: The right ventricular cavity size is normal. Right Atrium: The right atrial cavity size is normal. Aortic Valve: The aortic valve structure is normal. There is no evidence of aortic regurgitation. Mitral Valve: The mitral valve leaflets are mildly thickened. There is no evidence of mitral regurgitation. Tricuspid Valve: The tricuspid valve leaflets are normal. There is no evidence of tricuspid valve regurgitation. Pulmonic Valve: The pulmonic valve appears normal. There is trace pulmonic regurgitation. Pericardium: There is no pericardial effusion. Venous: The inferior vena cava appears normal in size. Measurements Chambers 2D Name Value Normal Range IVSd (2D) 1.21 cm (0.6 - 1.1) LVPWd (2D) 1.05 cm (0.6 - 1.1) LVIDd (2D) 4.76 cm (3.7 - 5.6) LVIDs (2D) 3.92 cm (2 - 3.8) LV FS (2D) 17.6 % - EF Teichholz (2D) 36.63 % - Ao root diameter (2D) 3.79 cm (2 - 3.7) Volumes/Mass Name Value Normal Range LA ESV SP 4CH (A/L) 19.26 ml - LA ESV SP 2CH (A/L) 15.3 ml - LA ESV BP (A/L) 18.22 ml - LA ESV BP (A/L) index 11.04 ml/m2 - LA ESV SP 4CH (MOD) 16.91 ml - LA ESV SP 2CH (MOD) 14.18 ml - LA ESV BP (MOD) 16.27 ml - LA ESV BP (MOD) index 9.86 ml/m2 - Diastolic/Systolic Function Name Value Normal Range MV E-wave Vmax 0.37 m/sec - MV deceleration time 238.43 msec - MV A-wave Vmax 0.56 m/sec - MV E:A ratio 0.66 ratio - Aortic Valve Name Value Normal Range AV Vmax 0.94 m/sec - AV VTI 15.33 cm - AV peak gradient 3.52 mmHg - AV mean gradient 2.22 mmHg - LVOT diameter 2.07 cm - LVOT Vmax 0.84 m/sec - LVOT VTI 15.53 cm - LVOT peak gradient 2.8 mmHg - LVOT mean gradient 1.9 mmHg - SV LVOT 52.45 ml - EUGENE (continuity Vmax) 3.01 cm2 - EUGENE (continuity VTI) 3.42 cm2 - Pulmonic Valve/Qp:Qs Name Value Normal Range PV Vmax 0.89 m/sec - PV peak gradient 3.16 mmHg - PV acceleration time 114.18 msec - [place]/IV: Voiding Method Toilet IV Catheter Type [Right Peripheral IV Forearm] IV Catheter Type [Right Upper INT / Saline Lock arm] IV Catheter Type [Left INT / Saline Lock External Jugular] IV Catheter Type [Left Upper INT / Saline Lock arm] Active Medications - Current Medications Current Medications: Generic Name Dose Route Start Last Admin Trade Name Freq PRN Reason Stop Dose Admin Acetaminophen 650 mg 06/18/20 16:46 06/23/20 02:45 Tylenol PO 650 mg Q6H PRN Administration Pain MILD(1-3)/Fever >100.5/ROD Aspirin 325 mg 06/21/20 12:00 06/25/20 10:11 Aspirin PO 325 mg QDAY LILIAN Administration Atorvastatin Calcium 40 mg 06/21/20 22:00 06/24/20 23:49 Lipitor PO 40 mg QHS LILIAN Administration Carvedilol 6.25 mg 06/21/20 12:00 06/25/20 10:11 Coreg PO 6.25 mg BID LILIAN Administration Clonazepam 0.5 mg 06/22/20 22:00 06/25/20 10:11 Klonopin PO 0.5 mg BID LILIAN Administration Dextrose 25 ml 06/20/20 07:10 D50w (25gm) Syringe IV Q30MIN PRN Hypoglycemia Protocol Divalproex Sodium 500 mg 06/23/20 22:00 06/25/20 10:[address] PO 500 mg BID LILIAN Administration Sodium Chloride 1,000 mls @ 150 mls/hr 06/18/20 17:00 06/23/20 02:45 Nacl 0.9% 1000 Ml IV 150 mls/hr DIRECT LILIAN Administration Lisinopril 10 mg 06/21/20 12:00 06/25/20 10:11 Zestril PO 10 mg QDAY LILIAN Administration Lorazepam 2 mg 06/19/20 16:51 06/25/20 10:52 Ativan IV 2 mg Q4H PRN Administration Agitation Naloxone HCl 0.1 mg 06/18/20 16:49 Naloxone IV Q2MIN PRN Res Rate </= 8 or 02 SAT < 92% Olanzapine 10 mg 06/24/20 10:00 06/25/20 10:11 Zyprexa PO 10 mg QDAY LILIAN Administration Ondansetron HCl 4 mg 06/21/20 03:33 06/23/20 02:45 Zofran IV 4 mg Q4H PRN Administration Nausea Senna 8.6 mg 06/18/20 22:00 06/25/20 10:11 Senokot PO 8.6 mg BID LILIAN Administration Sodium Chloride 10 ml 06/18/20 22:00 06/25/20 10:12 Sodium Chloride Flush Syringe 10 Ml IV 10 ml BID LILIAN Administration Sodium Chloride 10 ml 06/18/20 16:46 Sodium Chloride Flush Syringe 10 Ml IV PRN PRN LINE FLUSH Trazodone HCl 50 mg 06/20/20 22:00 06/24/20 23:49 Desyrel PO 50 mg QHS LILIAN Administration Ziprasidone 20 mg 06/20/20 14:48 06/24/20 18:09 Geodon IM 20 mg Q6H PRN Administration Agitation Nutrition/Malnutrition Assess - Dietary Evaluation Nutrition/Malnutrition Findings: Nutrition Notes Start: 06/19/20 10:27 Freq: Status: Active Protocol: Document 06/21/20 13:00 LM (Rec: 06/21/20 13:06 LM [id number]) Nutrition Notes Need for Assessment generated from: Low BMI Initial or Follow up Reassessment Current Diagnosis Respiratory Failure Other Pertinent Diagnosis polysubstance abuse Current Diet Regular Labs/Tests Reviewed Pertinent Medications Reviewed Height 5 ft 8 in Weight 55 kg [place] Body Weight (kg) 70.00 BMI 18.4 Weight Status Underweight Subjective/Other Information Screen for low BMI. Already following pt. Pt extubated and diet advanced. Pt did not answer phone. Pt has 75% intakes for breakfast and lunch in chart. Percent of energy/protein needs met: 100%/100% Burn Absent Trauma Absent GI Symptoms None Current % PO Good (75-100%) Minimum of two criteria No physical signs of malnutrition #1 Nutrition Diagnosis Inadequate oral intake As Evidenced by Signs and Symptoms pt eating 75% of meals Diagnosis Progress(for reassessment Resolved documentation) Is patient on ventilator? No Is Patient Ambulatory and/or Out of Bed No REE-([facility]-confined to bed) 1754.100 Calculation Used for Recommendations [facility] Additional Notes Protein: 44-55g/kg Fluid: 1ml/kcal Nutrition Intervention Change Diet Order: continue Goal #1 Meet at least 80% of energy and protein needs Goal #2 Wt gain/maintenance Anticipated Discharge Needs: cardiac Follow-Up By: 06/25/20 Additional Comments F/U for stable intakes
[2020-06-25] MEDS: ZIPRASIDONE MESYLATE 20 MG VIAL IM PRN ×2 (12:46→20:29)
[2020-06-25 16:04] LABS: Basophils % (Auto) 0.6 % (0.0-1.8); Eosinophils # (Auto) 0.1 K/mm3 (0.0-0.4); Eosinophils % (Auto) 1.6 % (0.0-4.3); Hematocrit 40.5 % (35.5-45.6); Hemoglobin 13.4 gm/dl (11.8-15.2); Lymphocytes # (Auto) 2.2 K/mm3 (1.2-5.4); Lymphocytes % (Auto) 30.2 % (13.4-35.0); Mean Corpuscular HGB Conc 33 % (32-34); Mean Corpuscular Volume 84 fl (84-94); Monocytes # (Auto) 0.4 K/mm3 (0.0-0.8); Monocytes % (Auto) 5.3 % (0.0-7.3); Platelet Count 375 K/mm3 (140-440); Red Blood Count 4.82 M/mm3 (3.65-5.03); Red Cell Distribution Width 15.8 % (13.2-15.2)
[2020-06-25] MEDS: NICOTINE 14 MG/24 HR PATCH TD SCH (16:28)
[2020-06-25] MEDS: traZODone 50 MG TAB PO SCH ×2 (20:57→22:00)
[2020-06-26] MEDS: LORazepam 2 MG/ML VIAL IV PRN ×4 (06:57→22:53)
[2020-06-26 07:31] LABS: Hematocrit 40.1 % (35.5-45.6); Hemoglobin 13.2 gm/dl (11.8-15.2)
--- NOTE | 2020-06-26 07:53 | Progress Note ---
Subjective - Reason for Consult Consult date: 06/26/20 Reason for consult: MHE Requesting physician: MER TAYLOR - Chief Complaint Chief complaint: Psych Progress HPI Patient seen in room today, appears dishelved, reports not wanting to do drugs anymore if released because he almost the last time. Patient appears restless while taking, pacing about room like he is in search for something not there, room looks a bit scattered and disorganized and he is easily distracted. Patient reports he has been using heroine for years, had a rehab in [facility] in 2011 and didnt help. REVIEW OF SYSTEMS Constitutional: Negative for weight loss ENT: Negative for stridor Respiratory: Negative for cough or hemoptysis All other systems reviewed and are negative MSE Appearance: Wearing appropriate clothing. Disheveled. Behavior: cooperative, has been restless and agitated for sitter. Disorganized Mood: "good" Affect: Restricted Thought Process: Goal directed Speech: Normal tone and pace Thought Content Suicidal: Denies Homicidal: Denies Hallucinations: Denies, but observed hallucinating Delusions: none elicited Consciousness: alert. Cognition/Memory: Limited Insight/Judgment: Impaired Diagnoses: Acute Psychosis Polysubstance Dependance Treatment Plan Haldol started today, pt seems to have suffered from prolonged drug use with complication of neurocognitive impairement and symptoms maybe chronic. Medication started, will observe for mood stability and tolerance MEDICATIONS: Risks, benefits and alternatives of medications discussed with the patient, questions answered and consent obtained from patient. PSYCHOTHERAPY: Supportive psychotherapy provided MEDICAL: Per primary team DELIRIUM PRECAUTIONS: Please re-orient patient frequently, keep lights on during the day, and minimize benzodiazepines and opiates as these medications could worsen patient's confusion. PERL PROGRAMMER: DISPOSITION: Recommend acute inpatient psychiatric hospitalization at this time LEGAL STATUS: 1013 FOLLOW-UP: Will follow Thank you for the consult. Please contact with any questions and/or concerns. Mental Status Exam - Vital signs Last Vital Signs Temp 97.7 F 06/26/20 05:51 Pulse 92 H 06/26/20 05:51 Resp 18 06/26/20 05:51 BP 115/67 06/26/20 05:51 Pulse Ox 99 06/26/20 05:51
[2020-06-26] MEDS ORDERED: WATER FOR INJ Sterile (PF) 10 ML ONE (08:58)
[2020-06-26] MEDS: ZIPRASIDONE MESYLATE 20 MG VIAL IM PRN (08:59)
[2020-06-26] MEDS: NICOTINE 14 MG/24 HR PATCH TD SCH (11:12)
[2020-06-26] MEDS: ASPIRIN 325 MG TAB PO SCH (11:12)
[2020-06-26] MEDS: DIVALPROEX DR 500 MG TAB PO SCH ×2 (11:12→21:04)
[2020-06-26] MEDS: SENNOSIDES 8.6 MG TAB PO SCH ×2 (11:12→21:04)
[2020-06-26] MEDS: clonazePAM 0.5 MG TAB PO SCH ×2 (11:13→21:04)
[2020-06-26] MEDS: LISINOPRIL 10 MG TAB PO SCH (11:14)
[2020-06-26] MEDS: carvediloL 6.25 MG TAB PO SCH (11:14)
--- NOTE | 2020-06-26 11:14 | Progress Note ---
Assessment and Plan Assessment and plan: Patient is a 34-year-old male with past medical history of drug use prior history in 2013 of 1013 which was rescinded at the time shortly after presents to the ED via EMS after found unresponsive along tremor tracks and pulmonary studies showing multiple drugs in his system including PCP, cocaine, THC, o pioids. According to information or review of records patient had an acquaintance who states that the patient uses drugs. EMS attempted to administer Narcan 4 mg in route and noted about a 45 seconds seizure-like activity which was shortly after the Narcan was given and resolved. Otherwise patient was unarousable and intubated for airway protection. There were also many unidentified pills laying around the patient unknown if the patient had taken those medications. He is currently intubated at the time of my evaluation imaging studies are unremarkable except for CT head which shows a possible left anterior maxillary sinus wall fracture. Laboratory studies shows mild elevated troponin and leukocytosis. Chest x-ray; IMPRESSION: Endotracheal tube is present and appears to be in good position. No acute pulmonary or pleural abnormality Unresponsive state, Polysubstance abuse, Elevated troponin, Lactic acidosis CT cervical spine: IMPRESSION: 1. No acute fracture or subluxation in the spine in neutral position. CT head: IMPRESSION: 1. No acute intracranial abnormality. 2. Possible left maxillary sinus fracture. Further evaluation with maxillofacial CT recommended. 06/20: Clinical improving, discontinue restraints. Anticipate discharge in am pending cardiac work up 06/21: Patient awaiting cardiac work-up. Psych input is noted patient now on a 1013 recommend an inpatient psych placement. Leukocytosis and lactic acidosis has improved. No further seizure episode is noted. Lexiscan planned for a.m. due to newly diagnosed cardiomyopathy. Patient started on Coreg and lisinopril. 06/22: Awaiting cardiomyopathy work up. Continues with intermittent owing at night and unsteady gait but otherwise awake and oriented x3 Psych input is noted with adjustment of medication. 06/23: Patient clinically stable, for stress test this am was done and negative Medical stable for discharge FOR INPATIENT PLACEMENT 06/24: Patient presented as noted above with unresponsiveness secondary to rebecca ysubstance abuse. Toxicology was positive for marijuana, cocaine, amphetamines and opioids. He was subsequently extubated. Continues on 1013 discussion with the spouse indicates that he has been battling with substance abuse for a long time. Currently is homeless by choice. Psychiatric team evaluated him and started him on some antipsychotic medications for mood disorder secondary to substance abuse. Lexiscan was done during hospitalization which was negative. His mental status has significantly improved but he is pending placement to inpatient psych he remains medically stable. 06/25. No change in medical condition. Still. awaiting DC to inpatient psych. 06/26. Still awaiting psych placement. [facility] following. [facility] he has no payer source which has hindered placement. Acute respiratory failure secondary to drug overdose Polysubstance abuse with sedation Acute metabolic encephalopathy secondary to substance abuse Cardiomyopathy with EF of 25 to 30% on echo. Acute diastolic congestive heart failure Leukocytosis rule out aspiration pneumonia Presumed seizure Elevated troponin possible and NSTEMI secondary to polysubstance abuse Systemic inflammatory response syndrome No evidence of sepsis Mixed hyperlipidemia Lactic acidosis Moderate protein calorie malnutrition with cachexia: Dietitian following Plan Continue supportive care. Had negative stress test. Cardiology recommends outpatient follow up with Dr Vick in 2-4 weeks Increase coreg to 12.5mg BID and monitor Seizure precautions DVT and GI prophylaxis History Interval history: Seen and examined at bedside Hospitalist Physical - Constitutional Vitals: Temp Pulse Resp BP Pulse Ox 97.7 F 92 H 18 115/67 99 06/26/20 05:51 06/26/20 05:51 06/26/20 05:51 06/26/20 05:51 06/26/20 05:51 General appearance: Present: no acute distress - EENT Eyes: Present: PERRL - Neck Neck: Present: supple, normal ROM - Respiratory Respiratory: bilateral: CTA - Cardiovascular Rhythm: regular Heart Sounds: Present: S1 & S2 - Extremities Extremities: no ischemia, No edema - Abdominal General gastrointestinal: soft, non-tender, non-distended, normal bowel sounds - Neurologic Neurologic: CNII-XII intact HEART Score - HEART Score Troponin: Troponin T < 0.010 ng/mL (0.00-0.029) 06/22/20 07:48 Results - Labs CBC & Chem 7: 06/26/20 05:54 06/19/20 04:33 Labs: Laboratory Last Values WBC 7.3 K/mm3 (4.5-11.0) 06/25/20 15:24 RBC 4.82 M/mm3 (3.65-5.03) 06/25/20 15:24 Hgb 13.2 gm/dl (11.8-15.2) 06/26/20 05:54 Hct 40.1 % (35.5-45.6) 06/26/20 05:54 MCV 84 fl (84-94) 06/25/20 15:24 MCH 28 pg (28-32) 06/25/20 15:24 MCHC 33 % (32-34) 06/25/20 15:24 RDW 15.8 % (13.2-15.2) H 06/25/20 15:24 Plt Count 395 K/mm3 (140-440) 06/26/20 05:54 Lymph % (Auto) 30.2 % (13.4-35.0) 06/25/20 15:24 [place] % (Auto) 5.3 % (0.0-7.3) 06/25/20 15:24 Eos % (Auto) 1.6 % (0.0-4.3) 06/25/20 15:24 Baso % (Auto) 0.6 % (0.0-1.8) 06/25/20 15:24 Lymph # 2.2 K/mm3 (1.2-5.4) 06/25/20 15:24 [place] # 0.4 K/mm3 (0.0-0.8) 06/25/20 15:24 Eos # 0.1 K/mm3 (0.0-0.4) 06/25/20 15:24 Baso # 0.0 K/mm3 (0.0-0.1) 06/25/20 15:24 Seg Neutrophils % 62.3 % (40.0-70.0) 06/25/20 15:24 Seg Neutrophils # 4.6 K/mm3 (1.8-7.7) 06/25/20 15:24 PT 12.6 Sec. (12.2-14.9) 06/18/20 15:04 INR 0.93 (0.87-1.13) 06/18/20 15:04 APTT 32.9 Sec. (24.2-36.6) 06/18/20 15:04 Heparin Anti-Xa Level < 0.10 U.I./ml (0.3-0.7) L 06/21/20 08:18 ABG pH 7.373 pH Units (7.350-7.450) 06/19/20 03:00 ABG pCO2 47.9 mm Hg 06/19/20 03:00 ABG pO2 119.8 mm Hg (80.0-90.0) H 06/19/20 03:00 ABG HCO3 27.3 mmol/L (20.0-26.0) H 06/19/20 03:00 ABG O2 Saturation 98.2 % (95.0-99.0) 06/19/20 03:00 ABG O2 Content 16.1 (0.0-44) 06/19/20 03:00 ABG Base Excess 1.5 mmol/L (-2.0-3.0) 06/19/20 03:00 ABG Hemoglobin 11.8 gm/dl (14.0-18.0) L 06/19/20 03:00 ABG Carboxyhemoglobin 1.2 % (0.0-5.0) 06/19/20 03:00 ABG Methemoglobin 0.5 % (0.0-1.5) 06/19/20 03:00 Oxyhemoglobin 96.5 % (95.0-99.0) 06/19/20 03:00 FiO2 50 % 06/19/20 03:00 Sodium 144 mmol/L (137-145) 06/19/20 04:33 Potassium 4.1 mmol/L (3.6-5.0) 06/19/20 04:33 Chloride 106.5 mmol/L (98-107) 06/19/20 04:33 Carbon Dioxide 25 mmol/L (22-30) D 06/19/20 04:33 Anion Gap 17 mmol/L 06/19/20 04:33 BUN 13 mg/dL (9-20) 06/19/20 04:33 Creatinine 0.7 mg/dL (0.8-1.3) L 06/19/20 04:33 Estimated GFR > 60 ml/min 06/19/20 04:33 BUN/Creatinine Ratio 19 % 06/19/20 04:33 Glucose 88 mg/dL (75-100) 06/19/20 04:33 POC Glucose 95 (70-105) 06/26/20 08:30 Lactic Acid 1.70 mmol/L (0.7-2.0) 06/18/20 22:48 Calcium 8.3 mg/dL (8.4-10.2) L 06/19/20 04:33 Total Bilirubin 0.60 mg/dL (0.1-1.2) 06/19/20 04:33 AST 45 units/L (5-40) H 06/19/20 04:33 ALT 46 units/L (7-56) 06/19/20 04:33 Alkaline Phosphatase 90 units/L (35-129) 06/19/20 04:33 Ammonia 64.0 umol/L (25-60) H 06/18/20 15:04 Total Creatine Kinase 1007 units/L (55-170) H 06/19/20 01:08 CK-MB (CK-2) 16.6 ng/mL (0.0-4.0) H 06/19/20 01:08 CK-MB (CK-2) Rel Index 1.6 (0-4) 06/19/20 01:08 Troponin T < 0.010 ng/mL (0.00-0.029) 06/22/20 07:48 Total Protein 6.3 g/dL (6.3-8.2) D 06/19/20 04:33 Albumin 2.9 g/dL (3.9-5) L 06/19/20 04:33 Albumin/Globulin Ratio 0.9 % 06/19/20 04:33 Triglycerides 160 mg/dL (2-149) H 06/18/20 14:36 Cholesterol 146 mg/dL (50-199) 06/18/20 14:36 LDL Cholesterol Direct 87 mg/dL (50-130) 06/18/20 14:36 HDL Cholesterol 49 mg/dL (40-59) 06/18/20 14:36 Cholesterol/HDL Ratio 2.97 % 06/18/20 14:36 TSH 0.743 mlU/mL (0.270-4.200) 06/18/20 14:36 Urine Color Yellow (Yellow) 06/18/20 13:38 Urine Turbidity Clear (Clear) 06/18/20 13:38 Urine pH 5.0 (5.0-7.0) 06/18/20 13:38 Ur Specific [place] 1.024 (1.003-1.030) 06/18/20 13:38 Urine Protein <15 mg/dl mg/dL (Negative) 06/18/20 13:38 Urine Glucose (UA) Neg mg/dL (Negative) 06/18/20 13:38 Urine Ketones Tr mg/dL (Negative) 06/18/20 13:38 Urine Blood Sm (Negative) 06/18/20 13:38 Urine Nitrite Neg (Negative) 06/18/20 13:38 Urine Bilirubin Neg (Negative) 06/18/20 13:38 Urine Urobilinogen 2.0 mg/dL (<2.0) 06/18/20 13:38 Ur Leukocyte Esterase Neg (Negative) 06/18/20 13:38 Urine WBC (Auto) 3.0 /HPF (0.0-6.0) 06/18/20 13:38 Urine RBC (Auto) 4.0 /HPF (0.0-6.0) 06/18/20 13:38 Urine Bacteria (Auto) 2+ /HPF (Negative) 06/18/20 13:38 Nasal Screen MRSA (PCR) Positive (Negative) 06/19/20 08:50 Salicylates < 0.3 mg/dL (2.8-20.0) L 06/18/20 14:36 Urine Opiates Screen Presumptive positive 06/18/20 13:38 Urine Methadone Screen Presumptive negative 06/18/20 13:38 Acetaminophen < 5.0 ug/mL (10.0-30.0) L 06/18/20 14:36 Ur Barbiturates Screen Presumptive negative 06/18/20 13:38 Ur Phencyclidine Scrn Presumptive negative 06/18/20 13:38 Ur Amphetamines Screen Presumptive positive 06/18/20 13:38 U Benzodiazepines Scrn Presumptive negative 06/18/20 13:38 Urine Cocaine Screen Presumptive positive 06/18/20 13:38 U Marijuana (THC) Screen Presumptive positive 06/18/20 13:38 Drugs of Abuse Note Disclamer 06/18/20 13:38 Plasma/Serum Alcohol < 0.01 % (0-0.07) 06/18/20 14:36 - Diagnostic Impressions Diagnostic Impressions: Echocardiogram 06/18/20 16:54 Transthoracic Echocardiogram Indication: Chest pain BP: 154/93 HR: 102 Conclusions *Mild concentric left ventricular hypertrophy is observed. *Global left ventricular systolic function is moderate to severely decreased. *The estimated ejection fraction is 25-30%. The anterior wall segment is hypokinetic. *Abnormal left ventricular diastolic filling is observed, consistent with impaired relaxation. *There is no pericardial effusion. Findings Left Ventricle: The left ventricular chamber size is normal. Mild concentric left ventricular hypertrophy is observed. Global left ventricular systolic function is moderate to severely decreased. The estimated ejection fraction is 25-30%. The anterior wall segment is hypokinetic. Abnormal left ventricular diastolic filling is observed, consistent with impaired relaxation. Left Atrium: The left atrial chamber size is normal. Right Ventricle: The right ventricular cavity size is normal. Right Atrium: The right atrial cavity size is normal. Aortic Valve: The aortic valve structure is normal. There is no evidence of aortic regurgitation. Mitral Valve: The mitral valve leaflets are mildly thickened. There is no evidence of mitral regurgitation. Tricuspid Valve: The tricuspid valve leaflets are normal. There is no evidence of tricuspid valve regurgitation. Pulmonic Valve: The pulmonic valve appears normal. There is trace pulmonic regurgitation. Pericardium: There is no pericardial effusion. Venous: The inferior vena cava appears normal in size. Measurements Chambers 2D Name Value Normal Range IVSd (2D) 1.21 cm (0.6 - 1.1) LVPWd (2D) 1.05 cm (0.6 - 1.1) LVIDd (2D) 4.76 cm (3.7 - 5.6) LVIDs (2D) 3.92 cm (2 - 3.8) LV FS (2D) 17.6 % - EF Teichholz (2D) 36.63 % - Ao root diameter (2D) 3.79 cm (2 - 3.7) Volumes/Mass Name Value Normal Range LA ESV SP 4CH (A/L) 19.26 ml - LA ESV SP 2CH (A/L) 15.3 ml - LA ESV BP (A/L) 18.22 ml - LA ESV BP (A/L) index 11.04 ml/m2 - LA ESV SP 4CH (MOD) 16.91 ml - LA ESV SP 2CH (MOD) 14.18 ml - LA ESV BP (MOD) 16.27 ml - LA ESV BP (MOD) index 9.86 ml/m2 - Diastolic/Systolic Function Name Value Normal Range MV E-wave Vmax 0.37 m/sec - MV deceleration time 238.43 msec - MV A-wave Vmax 0.56 m/sec - MV E:A ratio 0.66 ratio - Aortic Valve Name Value Normal Range AV Vmax 0.94 m/sec - AV VTI 15.33 cm - AV peak gradient 3.52 mmHg - AV mean gradient 2.22 mmHg - LVOT diameter 2.07 cm - LVOT Vmax 0.84 m/sec - LVOT VTI 15.53 cm - LVOT peak gradient 2.8 mmHg - LVOT mean gradient 1.9 mmHg - SV LVOT 52.45 ml - EUGENE (continuity Vmax) 3.01 cm2 - EUGENE (continuity VTI) 3.42 cm2 - Pulmonic Valve/Qp:Qs Name Value Normal Range PV Vmax 0.89 m/sec - PV peak gradient 3.16 mmHg - PV acceleration time 114.18 msec - [place]/IV: Voiding Method Toilet IV Catheter Type [Right Peripheral IV Forearm] IV Catheter Type [Right Upper INT / Saline Lock arm] IV Catheter Type [Left INT / Saline Lock External Jugular] IV Catheter Type [Left Upper INT / Saline Lock arm] Active Medications - Current Medications Current Medications: Generic Name Dose Route Start Last Admin Trade Name Freq PRN Reason Stop Dose Admin Acetaminophen 650 mg 06/18/20 16:46 06/23/20 02:45 Tylenol PO 650 mg Q6H PRN Administration Pain MILD(1-3)/Fever >100.5/ROD Aspirin 325 mg 06/21/20 12:00 06/25/20 10:11 Aspirin PO 325 mg QDAY LILIAN Administration Atorvastatin Calcium 40 mg 06/21/20 22:00 06/25/20 22:00 Lipitor PO 40 mg QHS LILIAN Administration Carvedilol 6.25 mg 06/21/20 12:00 06/25/20 22:00 Coreg PO Not Given BID LILIAN Clonazepam 0.5 mg 06/22/20 22:00 06/25/20 22:00 Klonopin PO 0.5 mg BID LILIAN Administration Dextrose 25 ml 06/20/20 07:10 D50w (25gm) Syringe IV Q30MIN PRN Hypoglycemia Protocol Divalproex Sodium 500 mg 06/23/20 22:00 06/25/20 22:[address] PO 500 mg BID LILIAN Administration Haloperidol 2 mg 06/26/20 22:00 Haldol PO BID LILIAN Sodium Chloride 1,000 mls @ 150 mls/hr 06/18/20 17:00 06/23/20 02:45 Nacl 0.9% 1000 Ml IV 150 mls/hr DIRECT LILIAN Administration Lisinopril 10 mg 06/21/20 12:00 06/25/20 10:11 Zestril PO 10 mg QDAY LILIAN Administration Lorazepam 2 mg 06/19/20 16:51 06/26/20 06:57 Ativan IV 2 mg Q4H PRN Administration Agitation Naloxone HCl 0.1 mg 06/18/20 16:49 Naloxone IV Q2MIN PRN Res Rate </= 8 or 02 SAT < 92% Nicotine 14 mg 06/25/20 17:00 06/25/20 16:28 Habitrol TD 14 mg QDAY LILIAN Administration Olanzapine 10 mg 06/24/20 10:00 06/25/20 10:11 Zyprexa PO 10 mg QDAY LILIAN Administration Ondansetron HCl 4 mg 06/21/20 03:33 06/23/20 02:45 Zofran IV 4 mg Q4H PRN Administration Nausea Senna 8.6 mg 06/18/20 22:00 06/25/20 22:00 Senokot PO 8.6 mg BID LILIAN Administration Sodium Chloride 10 ml 06/18/20 22:00 06/25/20 22:00 Sodium Chloride Flush Syringe 10 Ml IV 10 ml BID LILIAN Administration Sodium Chloride 10 ml 06/18/20 16:46 Sodium Chloride Flush Syringe 10 Ml IV PRN PRN LINE FLUSH Trazodone HCl 50 mg 06/20/20 22:00 06/25/20 22:00 Desyrel PO 50 mg QHS LILIAN Administration Ziprasidone 20 mg 06/20/20 14:48 06/26/20 08:59 Geodon IM 20 mg Q6H PRN Administration Agitation Nutrition/Malnutrition Assess - Dietary Evaluation Nutrition/Malnutrition Findings: Nutrition Notes Start: 06/19/20 10:27 Freq: Status: Active Protocol: Document 06/25/20 11:28 JANICE (Rec: 06/25/20 12:34 JANICE [id number]) Co-Sign 06/25/20 11:28 LM Nutrition Notes Initial or Follow up Brief Note Current Diagnosis Respiratory Failure Other Pertinent Diagnosis polysubstance abuse Current Diet Regular Labs/Tests Reviewed Pertinent Medications NS 150 ml/hr Height 5 ft 8 in Weight 51.6 kg [place] Body Weight (kg) 70.00 BMI 17.3 Weight change and time frame Wt loss noted Weight Status Underweight Subjective/Other Information Spoke with nurse via phone. Pt consuming 100% of meals. Minimum of two criteria No Interpretation of Weight Loss (severe) >2% in 1 week Nutrition Intervention Change Diet Order: continue Goal #1 Meet at least 80% of energy and protein needs Goal #2 Wt gain/maintenance Anticipated Discharge Needs: cardiac Follow-Up By: 06/30/20 Additional Comments F/U for stable intakes and wt
[2020-06-26] MEDS: traZODone 50 MG TAB PO SCH (21:04)
[2020-06-26] MEDS: HALOPERIDOL 2 MG TAB PO SCH (21:04)
[2020-06-26] MEDS: carvediloL 12.5 MG TAB PO SCH (22:00)
[2020-06-27] MEDS: LORazepam 2 MG/ML VIAL IV ONE ×2 (01:36→04:29)
[2020-06-27] MEDS ORDERED: traZODone 50 MG TAB PO SCH (08:06)
--- NOTE | 2020-06-27 08:06 | Progress Note ---
Subjective - Reason for Consult Consult date: 06/27/20 Reason for consult: MHE Requesting physician: MATEUSZ BURRELL - Chief Complaint Chief complaint: Floor Nurse: patient got oob and went straight to the shower after giving Ativan refused to go back to bed security was called and initiated 4 points restraint applied. sitter in room. call placed to DR. BURRELL waiting to call back Psych Progress Patient seen in room this AM, says he feels his recent hospital admission is a wake up call from God, he is self aware he has been addict for a long time and has overdosed 3 times in a week a year ago and believe God is talking to him now. I spoke with patients mom today, she reports patient usually says that to get out of hospital and when he comes home, and they try to get him into a pro gram, he wouldnt go or sign up. REVIEW OF SYSTEMS Constitutional: Negative for weight loss ENT: Negative for stridor Respiratory: Negative for cough or hemoptysis All other systems reviewed and are negative MSE Appearance: Wearing appropriate clothing. Disheveled. Behavior: cooperative, has been restless and agitated for sitter. Disorganized Mood: "good" Affect: Restricted Thought Process: Goal directed Speech: Normal tone and pace Thought Content Suicidal: Denies Homicidal: Denies Hallucinations: Denies, but observed hallucinating Delusions: none elicited Consciousness: alert. Cognition/Memory: Limited Insight/Judgment: Impaired Diagnoses: Acute Psychosis Polysubstance Dependance Treatment Plan Spoke to mom, she supports inpatient mental health intervention Haldol started today, pt seems to have suffered from prolonged drug use with complication of neurocognitive impairement and symptoms maybe chronic. Medication started, will observe for mood stability and tolerance MEDICATIONS: Risks, benefits and alternatives of medications discussed with the patient, q uestions answered and consent obtained from patient. PSYCHOTHERAPY: Supportive psychotherapy provided MEDICAL: Per primary team DELIRIUM PRECAUTIONS: Please re-orient patient frequently, keep lights on during the day, and minimize benzodiazepines and opiates as these medications could worsen patient's confusion. SUPERVISOR LANDSCAPE: DISPOSITION: Recommend acute inpatient psychiatric hospitalization at this time LEGAL STATUS: 1013 FOLLOW-UP: Will follow Thank you for the consult. Please contact with any questions and/or concerns. Mental Status Exam - Vital signs Last Vital Signs Temp 97.5 F L 06/27/20 04:30 Pulse 90 06/27/20 04:30 Resp 18 06/27/20 04:30 BP 113/77 06/27/20 04:30 Pulse Ox 99 06/27/20 04:30
[2020-06-27] MEDS: LORazepam 2 MG/ML VIAL IV PRN ×3 (09:54→21:01)
[2020-06-27] MEDS: NICOTINE 14 MG/24 HR PATCH TD SCH (09:54)
[2020-06-27] MEDS: HALOPERIDOL 2 MG TAB PO SCH (09:54)
[2020-06-27] MEDS: carvediloL 12.5 MG TAB PO SCH ×2 (09:55→22:58)
[2020-06-27] MEDS: ASPIRIN 325 MG TAB PO SCH (09:55)
[2020-06-27] MEDS: clonazePAM 0.5 MG TAB PO SCH ×2 (09:56→22:58)
[2020-06-27] MEDS: DIVALPROEX DR 500 MG TAB PO SCH ×2 (09:56→21:05)
[2020-06-27] MEDS: LISINOPRIL 10 MG TAB PO SCH (09:57)
--- NOTE | 2020-06-27 10:15 | Progress Note ---
Assessment and Plan Assessment and plan: Patient is a 34-year-old male with past medical history of drug use prior history in 2013 of 1013 which was rescinded at the time shortly after presents to the ED via EMS after found unresponsive along tremor tracks and pulmonary studies showing multiple drugs in his system including PCP, cocaine, THC, o pioids. According to information or review of records patient had an acquaintance who states that the patient uses drugs. EMS attempted to administer Narcan 4 mg in route and noted about a 45 seconds seizure-like activity which was shortly after the Narcan was given and resolved. Otherwise patient was unarousable and intubated for airway protection. There were also many unidentified pills laying around the patient unknown if the patient had taken those medications. He is currently intubated at the time of my evaluation imaging studies are unremarkable except for CT head which shows a possible left anterior maxillary sinus wall fracture. Laboratory studies shows mild elevated troponin and leukocytosis. Chest x-ray; IMPRESSION: Endotracheal tube is present and appears to be in good position. No acute pulmonary or pleural abnormality Unresponsive state, Polysubstance abuse, Elevated troponin, Lactic acidosis CT cervical spine: IMPRESSION: 1. No acute fracture or subluxation in the spine in neutral position. CT head: IMPRESSION: 1. No acute intracranial abnormality. 2. Possible left maxillary sinus fracture. Further evaluation with maxillofacial CT recommended. 06/20: Clinical improving, discontinue restraints. Anticipate discharge in am pending cardiac work up 06/21: Patient awaiting cardiac work-up. Psych input is noted patient now on a 1013 recommend an inpatient psych placement. Leukocytosis and lactic acidosis has improved. No further seizure episode is noted. Lexiscan planned for a.m. due to newly diagnosed cardiomyopathy. Patient started on Coreg and lisinopril. 06/22: Awaiting cardiomyopathy work up. Continues with intermittent owing at night and unsteady gait but otherwise awake and oriented x3 Psych input is noted with adjustment of medication. 06/23: Patient clinically stable, for stress test this am was done and negative Medical stable for discharge FOR INPATIENT PLACEMENT 06/24: Patient presented as noted above with unresponsiveness secondary to rebecca ysubstance abuse. Toxicology was positive for marijuana, cocaine, amphetamines and opioids. He was subsequently extubated. Continues on 1013 discussion with the spouse indicates that he has been battling with substance abuse for a long time. Currently is homeless by choice. Psychiatric team evaluated him and started him on some antipsychotic medications for mood disorder secondary to substance abuse. Lexiscan was done during hospitalization which was negative. His mental status has significantly improved but he is pending placement to inpatient psych he remains medically stable. 06/25. No change in medical condition. Still. awaiting DC to inpatient psych. 06/26. Still awaiting psych placement. Psych following. As per KALYANI Montejo, he has no payer source which has hindered placement. 06/27: Patient still awaiting placement. WBC is stable, awaiting placement, No new complaints. Per psych team, pt seems to have suffered from prolonged drug use with complication of neurocognitive impairement and symptoms maybe chronic., was also placed on haldol will observe for mood stability and tolerance Acute respiratory failure secondary to drug overdose Polysubstance abuse with sedation Acute metabolic encephalopathy secondary to substance abuse Cardiomyopathy with EF of 25 to 30% on echo. Acute diastolic congestive heart failure Leukocytosis rule out aspiration pneumonia Presumed seizure Elevated troponin possible and NSTEMI secondary to polysubstance abuse Systemic inflammatory response syndrome No evidence of sepsis Mixed hyperlipidemia Lactic acidosis Moderate protein calorie malnutrition with cachexia: Dietitian following Plan Continue supportive care. Discontinue [place] Patient has been successfully extubated Cardiology input noted anticipate ischemic work-up prior to discharge. Discontinue abx. Elevated blood pressure and tachycardia likely secondary to residual effect of substance abuse and altered mental status with associated anxiety. Fluid resuscitation If no clinical improvement in mental status will obtain psych evaluation Seizure precautions DVT and GI prophylaxis History Interval history: Patient seen and examined in no acute distress, sitter at bedside. States that he wants to go home Hospitalist Physical - Physical exam Narrative exam: VITAL SIGNS: Reviewed. GENERAL: The patient appears normally developed, cachectic no acute distress but much improved vital signs as documented. SITTER NOTED HEAD: No signs of head trauma. EYES: Pupils are equal. EARS: Hearing is intact MOUTH: NO DEFORMITY NECK: No adenopathy, no JVD. CHEST: Chest with transmitted bronchovesicular sounds with no wheezing or rales CARDIAC: Regular rate and rhythm. S1 and S2, without murmurs, gallops, or rubs. VASCULAR: No Edema. Peripheral pulses normal and equal in all extremities. ABDOMEN: Soft, non tender and non distended. No rebound or guarding, and no masses palpated. Bowel Sounds normal. MUSCULOSKELETAL: Good range of motion of all major joints. Extremities without clubbing, cyanosis or edema. NEUROLOGIC EXAM: Alert and oriented x 3 no focal sensory or strength deficits. Speech normal. Not fully following commands PSYCHIATRIC: Mood normal SKIN: Multiple punctate lesions and abrasion detail exam as documented in skin assessment - Constitutional Vitals: Temp Pulse Resp BP Pulse Ox 97.5 F L 109 H 18 106/71 99 06/27/20 04:30 06/27/20 09:57 06/27/20 04:30 06/27/20 09:57 06/27/20 04:30 General appearance: Present: no acute distress HEART Score - HEART Score Troponin: Troponin T < 0.010 ng/mL (0.00-0.029) 06/22/20 07:48 Results - Labs CBC & Chem 7: 06/26/20 05:54 06/19/20 04:33 Labs: Laboratory Last Values WBC 7.3 K/mm3 (4.5-11.0) 06/25/20 15:24 RBC 4.82 M/mm3 (3.65-5.03) 06/25/20 15:24 Hgb 13.2 gm/dl (11.8-15.2) 06/26/20 05:54 Hct 40.1 % (35.5-45.6) 06/26/20 05:54 MCV 84 fl (84-94) 06/25/20 15:24 MCH 28 pg (28-32) 06/25/20 15:24 MCHC 33 % (32-34) 06/25/20 15:24 RDW 15.8 % (13.2-15.2) H 06/25/20 15:24 Plt Count 395 K/mm3 (140-440) 06/26/20 05:54 Lymph % (Auto) 30.2 % (13.4-35.0) 06/25/20 15:24 [place] % (Auto) 5.3 % (0.0-7.3) 06/25/20 15:24 Eos % (Auto) 1.6 % (0.0-4.3) 06/25/20 15:24 Baso % (Auto) 0.6 % (0.0-1.8) 06/25/20 15:24 Lymph # 2.2 K/mm3 (1.2-5.4) 06/25/20 15:24 Thayer # 0.4 K/mm3 (0.0-0.8) 06/25/20 15:24 Eos # 0.1 K/mm3 (0.0-0.4) 06/25/20 15:24 Baso # 0.0 K/mm3 (0.0-0.1) 06/25/20 15:24 Seg Neutrophils % 62.3 % (40.0-70.0) 06/25/20 15:24 Seg Neutrophils # 4.6 K/mm3 (1.8-7.7) 06/25/20 15:24 PT 12.6 Sec. (12.2-14.9) 06/18/20 15:04 INR 0.93 (0.87-1.13) 06/18/20 15:04 APTT 32.9 Sec. (24.2-36.6) 06/18/20 15:04 Heparin Anti-Xa Level < 0.10 U.I./ml (0.3-0.7) L 06/21/20 08:18 ABG pH 7.373 pH Units (7.350-7.450) 06/19/20 03:00 ABG pCO2 47.9 mm Hg 06/19/20 03:00 ABG pO2 119.8 mm Hg (80.0-90.0) H 06/19/20 03:00 ABG HCO3 27.3 mmol/L (20.0-26.0) H 06/19/20 03:00 ABG O2 Saturation 98.2 % (95.0-99.0) 06/19/20 03:00 ABG O2 Content 16.1 (0.0-44) 06/19/20 03:00 ABG Base Excess 1.5 mmol/L (-2.0-3.0) 06/19/20 03:00 ABG Hemoglobin 11.8 gm/dl (14.0-18.0) L 06/19/20 03:00 ABG Carboxyhemoglobin 1.2 % (0.0-5.0) 06/19/20 03:00 ABG Methemoglobin 0.5 % (0.0-1.5) 06/19/20 03:00 Oxyhemoglobin 96.5 % (95.0-99.0) 06/19/20 03:00 FiO2 50 % 06/19/20 03:00 Sodium 144 mmol/L (137-145) 06/19/20 04:33 Potassium 4.1 mmol/L (3.6-5.0) 06/19/20 04:33 Chloride 106.5 mmol/L (98-107) 06/19/20 04:33 Carbon Dioxide 25 mmol/L (22-30) D 06/19/20 04:33 Anion Gap 17 mmol/L 06/19/20 04:33 BUN 13 mg/dL (9-20) 06/19/20 04:33 Creatinine 0.7 mg/dL (0.8-1.3) L 06/19/20 04:33 Estimated GFR > 60 ml/min 06/19/20 04:33 BUN/Creatinine Ratio 19 % 06/19/20 04:33 Glucose 88 mg/dL (75-100) 06/19/20 04:33 POC Glucose 87 (70-105) 06/27/20 08:32 Lactic Acid 1.70 mmol/L (0.7-2.0) 06/18/20 22:48 Calcium 8.3 mg/dL (8.4-10.2) L 06/19/20 04:33 Total Bilirubin 0.60 mg/dL (0.1-1.2) 06/19/20 04:33 AST 45 units/L (5-40) H 06/19/20 04:33 ALT 46 units/L (7-56) 06/19/20 04:33 Alkaline Phosphatase 90 units/L (35-129) 06/19/20 04:33 Ammonia 64.0 umol/L (25-60) H 06/18/20 15:04 Total Creatine Kinase 1007 units/L (55-170) H 06/19/20 01:08 CK-MB (CK-2) 16.6 ng/mL (0.0-4.0) H 06/19/20 01:08 CK-MB (CK-2) Rel Index 1.6 (0-4) 06/19/20 01:08 Troponin T < 0.010 ng/mL (0.00-0.029) 06/22/20 07:48 Total Protein 6.3 g/dL (6.3-8.2) D 06/19/20 04:33 Albumin 2.9 g/dL (3.9-5) L 06/19/20 04:33 Albumin/Globulin Ratio 0.9 % 06/19/20 04:33 Triglycerides 160 mg/dL (2-149) H 06/18/20 14:36 Cholesterol 146 mg/dL (50-199) 06/18/20 14:36 LDL Cholesterol Direct 87 mg/dL (50-130) 06/18/20 14:36 HDL Cholesterol 49 mg/dL (40-59) 06/18/20 14:36 Cholesterol/HDL Ratio 2.97 % 06/18/20 14:36 TSH 0.743 mlU/mL (0.270-4.200) 06/18/20 14:36 Urine Color Yellow (Yellow) 06/18/20 13:38 Urine Turbidity Clear (Clear) 06/18/20 13:38 Urine pH 5.0 (5.0-7.0) 06/18/20 13:38 Ur Specific [place] 1.024 (1.003-1.030) 06/18/20 13:38 Urine Protein <15 mg/dl mg/dL (Negative) 06/18/20 13:38 Urine Glucose (UA) Neg mg/dL (Negative) 06/18/20 13:38 Urine Ketones Tr mg/dL (Negative) 06/18/20 13:38 Urine Blood Sm (Negative) 06/18/20 13:38 Urine Nitrite Neg (Negative) 06/18/20 13:38 Urine Bilirubin Neg (Negative) 06/18/20 13:38 Urine Urobilinogen 2.0 mg/dL (<2.0) 06/18/20 13:38 Ur Leukocyte Esterase Neg (Negative) 06/18/20 13:38 Urine WBC (Auto) 3.0 /HPF (0.0-6.0) 06/18/20 13:38 Urine RBC (Auto) 4.0 /HPF (0.0-6.0) 06/18/20 13:38 Urine Bacteria (Auto) 2+ /HPF (Negative) 06/18/20 13:38 Nasal Screen MRSA (PCR) Positive (Negative) 06/19/20 08:50 Salicylates < 0.3 mg/dL (2.8-20.0) L 06/18/20 14:36 Urine Opiates Screen Presumptive positive 06/18/20 13:38 Urine Methadone Screen Presumptive negative 06/18/20 13:38 Acetaminophen < 5.0 ug/mL (10.0-30.0) L 06/18/20 14:36 Ur Barbiturates Screen Presumptive negative 06/18/20 13:38 Ur Phencyclidine Scrn Presumptive negative 06/18/20 13:38 Ur Amphetamines Screen Presumptive positive 06/18/20 13:38 U Benzodiazepines Scrn Presumptive negative 06/18/20 13:38 Urine Cocaine Screen Presumptive positive 06/18/20 13:38 U Marijuana (THC) Screen Presumptive positive 06/18/20 13:38 Drugs of Abuse Note Disclamer 06/18/20 13:38 Plasma/Serum Alcohol < 0.01 % (0-0.07) 06/18/20 14:36 - Diagnostic Impressions Diagnostic Impressions: Echocardiogram 06/18/20 16:54 Transthoracic Echocardiogram Indication: Chest pain BP: 154/93 HR: 102 Conclusions *Mild concentric left ventricular hypertrophy is observed. *Global left ventricular systolic function is moderate to severely decreased. *The estimated ejection fraction is 25-30%. The anterior wall segment is hypokinetic. *Abnormal left ventricular diastolic filling is observed, consistent with impaired relaxation. *There is no pericardial effusion. Findings Left Ventricle: The left ventricular chamber size is normal. Mild concentric left ventricular hypertrophy is observed. Global left ventricular systolic function is moderate to severely decreased. The estimated ejection fraction is 25-30%. The anterior wall segment is hypokinetic. Abnormal left ventricular diastolic filling is observed, consistent with impaired relaxation. Left Atrium: The left atrial chamber size is normal. Right Ventricle: The right ventricular cavity size is normal. Right Atrium: The right atrial cavity size is normal. Aortic Valve: The aortic valve structure is normal. There is no evidence of aortic regurgitation. Mitral Valve: The mitral valve leaflets are mildly thickened. There is no evidence of mitral regurgitation. Tricuspid Valve: The tricuspid valve leaflets are normal. There is no evidence of tricuspid valve regurgitation. Pulmonic Valve: The pulmonic valve appears normal. There is trace pulmonic regurgitation. Pericardium: There is no pericardial effusion. Venous: The inferior vena cava appears normal in size. Measurements Chambers 2D Name Value Normal Range IVSd (2D) 1.21 cm (0.6 - 1.1) LVPWd (2D) 1.05 cm (0.6 - 1.1) LVIDd (2D) 4.76 cm (3.7 - 5.6) LVIDs (2D) 3.92 cm (2 - 3.8) LV FS (2D) 17.6 % - EF Teichholz (2D) 36.63 % - Ao root diameter (2D) 3.79 cm (2 - 3.7) Volumes/Mass Name Value Normal Range LA ESV SP 4CH (A/L) 19.26 ml - LA ESV SP 2CH (A/L) 15.3 ml - LA ESV BP (A/L) 18.22 ml - LA ESV BP (A/L) index 11.04 ml/m2 - LA ESV SP 4CH (MOD) 16.91 ml - LA ESV SP 2CH (MOD) 14.18 ml - LA ESV BP (MOD) 16.27 ml - LA ESV BP (MOD) index 9.86 ml/m2 - Diastolic/Systolic Function Name Value Normal Range MV E-wave Vmax 0.37 m/sec - MV deceleration time 238.43 msec - MV A-wave Vmax 0.56 m/sec - MV E:A ratio 0.66 ratio - Aortic Valve Name Value Normal Range AV Vmax 0.94 m/sec - AV VTI 15.33 cm - AV peak gradient 3.52 mmHg - AV mean gradient 2.22 mmHg - LVOT diameter 2.07 cm - LVOT Vmax 0.84 m/sec - LVOT VTI 15.53 cm - LVOT peak gradient 2.8 mmHg - LVOT mean gradient 1.9 mmHg - SV LVOT 52.45 ml - EUGENE (continuity Vmax) 3.01 cm2 - EUGENE (continuity VTI) 3.42 cm2 - Pulmonic Valve/Qp:Qs Name Value Normal Range PV Vmax 0.89 m/sec - PV peak gradient 3.16 mmHg - PV acceleration time 114.18 msec - [place]/IV: Voiding Method Diaper IV Catheter Type [Left Forearm INT / Saline Lock ] IV Catheter Type [Right Peripheral IV Forearm] IV Catheter Type [Right Upper INT / Saline Lock arm] IV Catheter Type [Left INT / Saline Lock External Jugular] IV Catheter Type [Left Upper INT / Saline Lock arm] Active Medications - Current Medications Current Medications: Generic Name Dose Route Start Last Admin Trade Name Freq PRN Reason Stop Dose Admin Acetaminophen 650 mg 06/18/20 16:46 06/23/20 02:45 Tylenol PO 650 mg Q6H PRN Administration Pain MILD(1-3)/Fever >100.5/ROD Aspirin 325 mg 06/21/20 12:00 06/27/20 09:55 Aspirin PO 325 mg QDAY LILIAN Administration Atorvastatin Calcium 40 mg 06/21/20 22:00 06/26/20 21:04 Lipitor PO 40 mg QHS LILIAN Administration Carvedilol 12.5 mg 06/26/20 22:00 06/27/20 09:55 Coreg PO 12.5 mg BID LILIAN Administration Clonazepam 0.5 mg 06/22/20 22:00 06/27/20 09:56 Klonopin PO 0.5 mg BID LILIAN Administration Dextrose 25 ml 06/20/20 07:10 D50w (25gm) Syringe IV Q30MIN PRN Hypoglycemia Protocol Divalproex Sodium 500 mg 06/23/20 22:00 06/27/20 09:[address] PO 500 mg BID LILIAN Administration Haloperidol 2 mg 06/26/20 22:00 06/27/20 09:54 Haldol PO 2 mg BID LILIAN Administration Sodium Chloride 1,000 mls @ 150 mls/hr 06/18/20 17:00 06/23/20 02:45 Nacl 0.9% 1000 Ml IV 150 mls/hr DIRECT LILIAN Administration Lisinopril 10 mg 06/21/20 12:00 06/27/20 09:57 Zestril PO Not Given QDAY LILIAN Lorazepam 2 mg 06/19/20 16:51 06/27/20 09:54 Ativan IV 2 mg Q4H PRN Administration Agitation Naloxone HCl 0.1 mg 06/18/20 16:49 Naloxone IV Q2MIN PRN Res Rate </= 8 or 02 SAT < 92% Nicotine 14 mg 06/25/20 17:00 06/27/20 09:54 Habitrol TD 14 mg QDAY LILIAN Administration Olanzapine 10 mg 06/24/20 10:00 06/27/20 09:55 Zyprexa PO 10 mg QDAY LILIAN Administration Ondansetron HCl 4 mg 06/21/20 03:33 06/23/20 02:45 Zofran IV 4 mg Q4H PRN Administration Nausea Senna 8.6 mg 06/18/20 22:00 06/26/20 21:04 Senokot PO Not Given BID LILIAN Sodium Chloride 10 ml 06/18/20 22:00 06/27/20 09:57 Sodium Chloride Flush Syringe 10 Ml IV 10 ml BID LILIAN Administration Sodium Chloride 10 ml 06/18/20 16:46 Sodium Chloride Flush Syringe 10 Ml IV PRN PRN LINE FLUSH Trazodone HCl 100 mg 06/27/20 22:00 Desyrel PO QHS LILAIN Ziprasidone 20 mg 06/20/20 14:48 06/26/20 08:59 Geodon IM 20 mg Q6H PRN Administration Agitation Nutrition/Malnutrition Assess - Dietary Evaluation Nutrition/Malnutrition Findings: Nutrition Notes Start: 06/19/20 10:27 Freq: Status: Active Protocol: Document 06/25/20 11:28 JANICE (Rec: 06/25/20 12:34 JANICE [id number]) Co-Sign 06/25/20 11:28 LM Nutrition Notes Initial or Follow up Brief Note Current Diagnosis Respiratory Failure Other Pertinent Diagnosis polysubstance abuse Current Diet Regular Labs/Tests Reviewed Pertinent Medications NS 150 ml/hr Height 5 ft 8 in Weight 51.6 kg [place] Body Weight (kg) 70.00 BMI 17.3 Weight change and time frame Wt loss noted Weight Status Underweight Subjective/Other Information Spoke with nurse via phone. Pt consuming 100% of meals. Minimum of two criteria No Interpretation of Weight Loss (severe) >2% in 1 week Nutrition Intervention Change Diet Order: continue Goal #1 Meet at least 80% of energy and protein needs Goal #2 Wt gain/maintenance Anticipated Discharge Needs: cardiac Follow-Up By: 06/30/20 Additional Comments F/U for stable intakes and wt
[2020-06-27] MEDS: SENNOSIDES 8.6 MG TAB PO SCH ×2 (10:17→21:05)
[2020-06-27] MEDS ORDERED: traZODone 100 MG TAB PO SCH (22:00)
[2020-06-27] MEDS: HALOPERIDOL 5 MG TAB PO SCH (22:58)
--- NOTE | 2020-06-28 09:45 | Progress Note ---
Subjective - Reason for Consult Consult date: 06/28/20 Reason for consult: MHE Requesting physician: MER TAYLOR - Chief Complaint Chief complaint: Floor Nurse: 1013 in effect, sitter in room. Patient was requesting additional Ativan and was a bit aggitated, however fell asleep and apperared quite sedated. Ativan not given, will continue to monitor. Psych Progress Patient seen today, says he promise wont do drugs anymore because he has never reached point of in the past. I informed patient I am able to discharge if family member can pick him up, patient provided ex contact, says she would be willing to pick him up and has agreed for him to stay with her. Patient denies SI, HI or AVH at this moment REVIEW OF SYSTEMS Constitutional: Negative for weight loss ENT: Negative for stridor Respiratory: Negative for cough or hemoptysis All other systems reviewed and are negative MSE Appearance: Wearing appropriate clothing. Disheveled. Behavior: cooperative, has been restless and agitated for sitter. Disorganized Mood: "good" Affect: Restricted Thought Process: Goal directed Speech: Normal tone and pace Thought Content Suicidal: Denies Homicidal: Denies Hallucinations: Denies, but observed hallucinating Delusions: none elicited Consciousness: alert. Cognition/Memory: Limited Insight/Judgment: Impaired Diagnoses: Acute Psychosis Polysubstance Dependance Treatment Plan Spoke with , she agrees for safety discharge plan and willing to pick patient up in the hospital. MEDICATIONS: Risks, benefits and alternatives of medications discussed with the patient, questions answered and consent obtained from patient. PSYCHOTHERAPY: Supportive psychotherapy provided MEDICAL: Per primary team DELIRIUM PRECAUTIONS: Please re-orient patient frequently, keep lights on during the day, and minimize benzodiazepines and opiates as these medications could worsen patient's confusion. CRM MARKETING ANALYST: DISPOSITION: Do not Recommend acute inpatient psychiatric hospitalization at this time. Safety discharge to with outpt resources LEGAL STATUS: 1013 rescinded FOLLOW-UP: Will follow Thank you for the consult. Please contact with any questions and/or concerns. Mental Status Exam - Vital signs Last Vital Signs Temp 97.5 F L 06/28/20 06:17 Pulse 97 H 06/28/20 06:17 Resp 16 06/28/20 06:17 BP 100/56 06/28/20 06:17 Pulse Ox 97 06/28/20 06:17
[2020-06-28 10:51] VITALS: BP 101/44
[2020-06-28] MEDS: NICOTINE 14 MG/24 HR PATCH TD SCH (11:06)
[2020-06-28] MEDS: DIVALPROEX DR 500 MG TAB PO SCH (11:06)
[2020-06-28] MEDS: carvediloL 12.5 MG TAB PO SCH (11:13)
[2020-06-28] MEDS: ASPIRIN 325 MG TAB PO SCH (11:13)
[2020-06-28] MEDS: HALOPERIDOL 5 MG TAB PO SCH (11:14)
[2020-06-28] MEDS: clonazePAM 0.5 MG TAB PO SCH (11:14)
[2020-06-28] MEDS: SENNOSIDES 8.6 MG TAB PO SCH (11:15)
[2020-06-28] MEDS: LISINOPRIL 10 MG TAB PO SCH (11:15)
--- NOTE | 2020-06-28 14:56 | Discharge Summary ---
Providers - Providers Date of Admission: 06/18/20 16:42 Date of discharge: 06/28/20 Attending physician: MATEUSZ BURRELL 06/18/20 16:45 Consult to Cardiology [CONS] Routine Consulting Provider: LAUREN MACE Reason For Exam: elevated troponin, NSTEMI 06/18/20 22:02 Consult to Dietitian/Nutrition [CONS] Routine Physician Instructions: Reason For Exam: Reason for Consult: Evaluate nutritional intake 06/19/20 16:42 Consult to Mental Health [CONS] Routine Reason For Exam: ACUTE PSYCHOSIS Primary care physician: BOILER OPERATOR HELPER Hospitalization Condition: Stable Hospital course: Patient is a 34-year-old male with past medical history of drug use prior history in 2013 which was rescinded at the time shortly after presents to the ED via EMS after found unresponsive along tremor tracks and pulmonary studies showing multiple drugs in his system including PCP, cocaine, THC, opioids. According to information or review of records patient had an acquaintance who states that the patient uses drugs. EMS attempted to administer Narcan 4 mg in route and noted about a 45 seconds seizure-like activity which was shortly after the Narcan was given and resolved. Otherwise patient was unarousable and intubated for airway protection. There were also many unidentified pills laying around the patient unknown if the patient had taken those medications. He is currently intubated at the time of my evaluation imaging studies are unremarkable except for CT head which shows a possible left anterior maxillary sinus wall fracture. Laboratory studies shows mild elevated troponin and leukocytosis. Chest x-ray; IMPRESSION: Endotracheal tube is present and appears to be in good position. No acute pulmonary or pleural abnormality Unresponsive state, Polysubstance abuse, Elevated troponin, Lactic acidosis CT cervical spine: IMPRESSION: 1. No acute fracture or subluxation in the spine in neutral position. CT head: IMPRESSION: 1. No acute intracranial abnormality. 2. Possible left maxillary sinus fracture. Further evaluation with maxillofacial CT recommended. 06/20: Clinical improving, discontinue restraints. Anticipate discharge in am pending cardiac work up 06/21: Patient awaiting cardiac work-up. Psych input is noted patient now on a 1013 recommend an inpatient psych placement. Leukocytosis and lactic acidosis has improved. No further seizure episode is noted. Lexiscan planned for a.m. due to newly diagnosed cardiomyopathy. Patient started on Coreg and lisinopril. 9/1: Awaiting cardiomyopathy work up. Continues with intermittent sundowing at night and unsteady gait but otherwise awake and oriented x3 Psych input is noted with adjustment of medication. 06/23: Patient clinically stable, for stress test this am was done and negative Medical stable for discharge FOR INPATIENT PLACEMENT 06/24: Patient presented as noted above with unresponsiveness secondary to polysubstance abuse. Toxicology was positive for marijuana, cocaine, amphetamines and opioids. He was subsequently extubated. Continues on 1012 discussion with the spouse indicates that he has been battling with substance abuse for a long time. Currently is homeless by choice. Psychiatric team evaluated him and started him on some antipsychotic medications for mood disorder secondary to substance abuse. Lexiscan was done during hospitalization which was negative. His mental status has significantly improved but he is pending placement to inpatient psych he remains medically stable. 06/25. No change in medical condition. Still. awaiting DC to inpatient psych. 06/26. Still awaiting psych placement. Psych following. As per KALYANI Montejo, he has no payer source which has hindered placement. 06/27: Patient still awaiting placement. WBC is stable, awaiting placement, No new complaints. Per psych team, pt seems to have suffered from prolonged drug use with complication of neurocognitive impairement and symptoms maybe chronic., was also placed on haldol will observe for mood stability and tolerance 06/28. Patient has been accepted to inpatient rehab and will be discharged today. Disposition: DC/TX-65 PSY HOSP/PSY UNIT - Discharge Diagnoses (1) Polysubstance abuse Status: Chronic Core Measure Documentation - Palliative Care Palliative Care/ Comfort Measures: Not Applicable - Core Measures Any of the following diagnoses?: none Exam - Constitutional Vitals: Temp Pulse Resp BP Pulse Ox 97.4 F L 96 H 18 101/44 99 06/28/20 10:50 06/28/20 10:47 06/28/20 10:47 06/28/20 11:15 06/28/20 10:47 General appearance: Present: no acute distress, well-nourished - EENT Eyes: Present: PERRL ENT: hearing intact, clear oral mucosa - Neck Neck: Present: supple, normal ROM - Respiratory Respiratory effort: normal Respiratory: bilateral: CTA - Cardiovascular Heart Sounds: Present: S1 & S2. Absent: rub, click - Extremities Extremities: pulses symmetrical, No edema Peripheral Pulses: within normal limits - Abdominal General gastrointestinal: Present: soft, non-tender, non-distended, normal bowel sounds Male genitourinary: Present: normal - Integumentary Integumentary: Present: clear, warm, dry - Musculoskeletal Musculoskeletal: gait normal, strength equal bilaterally - Psychiatric Psychiatric: appropriate mood/affect, intact judgment & insight - Neurologic Neurologic: CNII-XII intact, moves all extremities Plan Activity: no restrictions Follow up with: [facility] [Outside] - 7 Days PRIMARY CARE,MD [Primary Care Provider] - 3-5 Days Prescriptions: traZODone [Desyrel] 50 mg PO QHS #30 tablet AtorvaSTATin [Lipitor] 40 mg PO QHS #30 tablet carvediloL [Coreg] 6.25 mg PO BID #[address] [Depakote Dr] 250 mg PO BID #60 tablet clonazePAM [KlonoPIN] 0.25 mg PO BID #30 tablet Albuterol Mdi (or & Nicu Only) [ProAir HFA Inhaler] 2 puff IH QID PRN #8.5 gram PRN Reason: Shortness Of Breath lisinopriL [Zestril TAB] 10 mg PO QDAY #30 tablet OLANzapine [ZyPREXA] 5 mg PO QDAY #30 tablet
== END 2020-06-28 12:50 | DRG 917 ==
LOC: ED 12:54 → CC1 16:42 → 3A 06-19 15:26
PROVIDERS: ADMIT Internal Medicine; ATTEND Internal Medicine
PROC: 5A1935Z Respiratory Ventilation, Less than 24 Consecutive Hours (ICD-10-PCS; 2020-06-18)
PROC: 0BH17EZ Insertion of Endotracheal Airway into Trachea, Via Natural or Artificial Opening (ICD-10-PCS; 2020-06-18)
PROC: 4A033R1 Measurement of Arterial Saturation, Peripheral, Percutaneous Approach (ICD-10-PCS; principal; 2020-06-19)
DX: T50.991A Poisoning by other drugs, medicaments and biological substances, accidental (unintentional), initial encounter (principal); J96.00 Acute respiratory failure, unspecified whether with hypoxia or hypercapnia; G93.41 Metabolic encephalopathy; I50.31 Acute diastolic (congestive) heart failure; J69.0 Pneumonitis due to inhalation of food and vomit; I21.4 Non-ST elevation (NSTEMI) myocardial infarction; E87.2 Acidosis; I42.9 Cardiomyopathy, unspecified; R65.10 Systemic inflammatory response syndrome (SIRS) of non-infectious origin without acute organ dysfunction; E44.0 Moderate protein-calorie malnutrition; Z68.1 Body mass index [BMI] 19.9 or less, adult; F23 Brief psychotic disorder; F19.10 Other psychoactive substance abuse, uncomplicated; D72.829 Elevated white blood cell count, unspecified; E78.2 Mixed hyperlipidemia; Z79.899 Other long term (current) drug therapy; Y92.89 Other specified places as the place of occurrence of the external cause
CPT/HCPCS: 36415; 36600; 70450; 71045; 72125; 78452; 80053; 80061; 80307; 80320; 81001; 82140; 82550; 82553; 82803; 82962; 84443; 84484; 85014; 85018; 85025; 85027; 85049; 85520; 85610; 85730; 87040; 87070; 87205; 87641; 93005; 93017; 93306; 94002; 94003; 94640; G0378; A9270-GY; A9502; G0480; J1200; J1630; J1644; J1956; J2060; J2250; J2405; J2704; J2785; J3010; J3486; J7030

== ENCOUNTER 2020-12-10 04:52 | Emergency (ER) | payer SELFPAY ==
[2020-12-10] MEDS ORDERED: SODIUM CHLORIDE 0.9% 1000 ML 1,000 ML IV ONE ×2 (05:06→07:24)
--- NOTE | 2020-12-10 05:10 | Event Note ---
ED Screening Note Date of service: 12/10/20 Time: 05:09 ED Screening Note: Patient is a 35-year-old male who presents emergency room with a heroin overdose. Patient brought in by EMS. EMS report received. Patient is oriented x4. Patient states he was taking heroin to get high and had no intentions of hurting himself. Patient denies suicidal homicidal ideations. Patient is lethargic but easily arousable answers all questions appropriately. Patient states he does not want rehabilitation. This initial assessment/diagnostic orders/clinical plan/treatment(s) is/are subject to change based on patients health status, clinical progression and re- assessment by fellow clinical providers in the ED. Further treatment and workup at subsequent clinical providers discretion. Patient/guardian urged not to elope from the ED as their condition may be serious if not clinically assessed and man aged. Initial orders include: Labs, EKG, urine, as needed Narcan order
[2020-12-10] MEDS: NALOXONE 0.4 MG/1 ML INJ IV PRN ×4 (05:13→05:20)
[2020-12-10 05:47] LABS: Hematocrit 36.4 % (35.5-45.6); Hemoglobin 11.9 gm/dl (11.8-15.2); Mean Corpuscular HGB Conc 33 % (32-34); Mean Corpuscular Volume 83 fl (84-94); Platelet Count 272 K/mm3 (140-440); Red Cell Distribution Width 14.1 % (13.2-15.2)
[2020-12-10 06:06] LABS: Amphetamine Screen,Urine PRESUMPTIVE POSITIVE; Benzodiazepines Screen,Urine PRESUMPTIVE NEGATIVE; Cannabinoid Screen,Urine PRESUMPTIVE POSITIVE; Cocaine Screen,Urine PRESUMPTIVE POSITIVE; Methadone Screen,Urine PRESUMPTIVE NEGATIVE; Opiate Screen,Urine PRESUMPTIVE NEGATIVE
[2020-12-10 06:09] LABS: Alanine Aminotransferase 28 units/L (7-56); Albumin 3.8 g/dL (3.9-5); BUN/Creatinine Ratio 19; Blood Urea Nitrogen 15 mg/dL (9-20); Calcium 8.4 mg/dL (8.4-10.2); Hemolysis Index 2
[2020-12-10 06:26] LABS: Bacteria,Urine 2+ /HPF (Negative); Bilirubin,Urine NEG (Negative); Blood,Urine NEG (Negative); Color,Urine Yellow (Yellow); Mucus,Urine FEW /HPF
--- NOTE | 2020-12-10 06:26 | Emergency Department Report ---
HPI - General Chief Complaint: Overdose Time Seen by Provider: 12/10/20 05:06 - HPI HPI: Room 35 The patient is a 35-year-old male present with a chief complaint of heroin overdose. The patient has a history of polysubstance abuse and was reportedly found outside unresponsive by EMS. Patient was administered Narcan prior to arrival and upon arrival to the ED the patient was administered more Narcan and became alert and oriented. Patient denies complaints. Patient refused rehab services ED Past Medical Hx - Past Medical History Previous Medical History?: No Hx Psychiatric Treatment: Yes ([facility] - 10/2013) Additional medical history: Methamphetamine abuse - Surgical History Past Surgical History?: No - Family History Family history: no significant - Social History Smoking Status: Current Every Day Smoker Substance Use Type: Cocaine, Heroin, Marijuana, Methamphetamines - Medications Home Medications: Home Medications Medication Instructions Recorded Confirmed Last Taken Type Albuterol Mdi (or & Nicu Only) 2 puff IH QID PRN #8.5 gram 06/22/20 12/10/20 Unknown Rx [ProAir HFA Inhaler] Aspirin 325 mg PO QDAY tablet 06/22/20 12/10/20 Unknown Rx AtorvaSTATin [Lipitor] 40 mg PO QHS #30 tablet 06/22/20 12/10/[address] [Hortensia Jimenez] 250 mg PO BID #60 tablet 06/22/20 12/10/20 Unknown Rx OLANzapine [ZyPREXA] 5 mg PO QDAY #30 tablet 06/22/20 12/10/20 Unknown Rx carvediloL [Coreg] 6.25 mg PO BID #30 tablet 06/22/20 12/10/20 Unknown Rx clonazePAM [KlonoPIN] 0.25 mg PO BID #30 tablet 06/22/20 12/10/20 Unknown Rx lisinopriL [Zestril TAB] 10 mg PO QDAY #30 tablet 06/22/20 12/10/20 Unknown Rx traZODone [Desyrel] 50 mg PO QHS #30 tablet 06/22/20 12/10/20 Unknown Rx ED Review of Systems ROS: Stated complaint: OD Other details as noted in HPI Constitutional: no symptoms reported Eyes: denies: eye pain Respiratory: no symptoms reported Cardiovascular: denies: chest pain Endocrine: no symptoms reported Gastrointestinal: denies: abdominal pain Genitourinary: denies: dysuria Musculoskeletal: denies: back pain Neurological: denies: headache Physical Exam - Physical Exam Vital Signs: Vital Signs 12/10/20 12/10/20 12/10/20 05:11 05:26 06:13 Temperature 97.0 F L Pulse Rate 96 H 100 H Respiratory 14 19 11 L Rate Blood Pressure 154/114 Blood Pressure 152/104 [Left] O2 Sat by Pulse 95 100 Oximetry Physical Exam: GENERAL: The patient is well-developed well-nourished male sleeping on stretcher in no acute distress. Patient awakens to verbal stimuli HEENT: Normocephalic. Extraocular motions are intact. Patient has moist mucous membranes. NECK: Supple. Trachea midline CHEST/LUNGS: Clear to auscultation. There is no respiratory distress noted. HEART/CARDIOVASCULAR: Regular. There is no tachycardia. There is no gallop rub or murmur. ABDOMEN: Abdomen is soft, nontender. Patient has normal bowel sounds. There is no abdominal distention. SKIN: There is no rash. There is no edema. There is no diaphoresis. NEURO: The patient is asleep but awakens to verbal stimuli. Patient appears under the influence of a controlled substance. The patient has no focal neurologic deficits. The patient has normal speech MUSCULOSKELETAL: There is no tenderness or deformity. There is no limitation range of motion. There is no evidence of acute injury. ED Course Vital Signs 12/10/20 12/10/20 12/10/20 05:11 05:26 06:13 Temperature 97.0 F L Pulse Rate 96 H 100 H Respiratory 14 19 11 L Rate Blood Pressure 154/114 Blood Pressure 152/104 [Left] O2 Sat by Pulse 95 100 Oximetry - Reevaluation(s) Reevaluation #1: 12/10/20 10:08 Patient awake and ambulatory to bathroom. Patient requesting to leave ED Medical Decision Making - Lab Data Result diagrams: 12/10/20 05:36 12/10/20 05:36 Laboratory Tests 12/10/20 12/10/20 12/10/20 05:31 05:31 05:36 WBC 7.0 RBC 4.40 Hgb 11.9 Hct 36.4 MCV 83 L MCH 27 L MCHC 33 RDW 14.1 Plt Count 272 Baso % (Auto) Food Service Coordinator Add Manual Diff Complete Total Counted 100 Seg Neuts % (Manual) 70.0 Lymphocytes % (Manual) 22.0 Monocytes % (Manual) 4.0 Eosinophils % (Manual) 4.0 Nucleated RBC % Not Reportable Seg Neutrophils # Man 4.9 Band Neutrophils # 0.0 Lymphocytes # (Manual) 1.5 Abs React Lymphs (Man) 0.0 Monocytes # (Manual) 0.3 Eosinophils # (Manual) 0.3 Basophils # (Manual) 0.0 Metamyelocytes # 0.0 Myelocytes # 0.0 Promyelocytes # 0.0 Blast Cells # 0.0 WBC Morphology Not Reportable Hypersegmented Neuts Not Reportable Hyposegmented Neuts Not Reportable Hypogranular Neuts Not Reportable Smudge Cells Not Reportable Toxic Granulation Not Reportable Toxic Vacuolation Not Reportable Dohle Bodies Not Reportable Pelger-Huet Anomaly Not Reportable Mirta Rods Not Reportable Platelet Estimate Consistent w auto Clumped Platelets Not Reportable Plt Clumps, EDTA Not Reportable Large Platelets Not Reportable Giant Platelets Not Reportable Platelet Satelliting Not Reportable Plt Morphology Comment Not Reportable RBC Morphology Normal Dimorphic RBCs Not Reportable Polychromasia Not Reportable Hypochromasia Not Reportable Poikilocytosis Not Reportable Anisocytosis Not Reportable Microcytosis Not Reportable Macrocytosis Not Reportable Spherocytes Not Reportable Pappenheimer Bodies Not Reportable Sickle Cells Not Reportable Target Cells Not Reportable Tear Drop Cells Not Reportable Ovalocytes Not Reportable Helmet Cells Not Reportable Luis-[place] Bodies Not Reportable [place] Rings Not Reportable Angelina Cells Not Reportable Bite Cells Not Reportable Crenated Cell Not Reportable Elliptocytes Not Reportable Acanthocytes (Spur) Not Reportable Rouleaux Not Reportable Hemoglobin C Crystals Not Reportable Schistocytes Not Reportable Malaria parasites Not Reportable Ashvin Bodies Not Reportable Hem Pathologist Commnt No Sodium Potassium Chloride Carbon Dioxide Anion Gap BUN Creatinine Estimated GFR BUN/Creatinine Ratio Glucose Calcium Total Bilirubin AST ALT Alkaline Phosphatase Total Creatine Kinase CK-MB (CK-2) CK-MB (CK-2) Rel Index Troponin T Total Protein Albumin Albumin/Globulin Ratio Urine Color Yellow Urine Turbidity Slightly-cloudy Urine pH 5.0 Ur Specific [place] 1.021 Urine Protein 100 mg/dl Urine Glucose (UA) Neg Urine Ketones Neg Urine Blood Neg Urine Nitrite Neg Urine Bilirubin Neg Urine Urobilinogen 2.0 Ur Leukocyte Esterase Neg Urine WBC (Auto) 1.0 Urine RBC (Auto) 1.0 Urine Bacteria (Auto) 2+ Urine Mucus Few Salicylates Urine Opiates Screen Presumptive negative Urine Methadone Screen Presumptive negative Acetaminophen Ur Barbiturates Screen Presumptive negative Ur Phencyclidine Scrn Presumptive negative Ur Amphetamines Screen Presumptive positive U Benzodiazepines Scrn Presumptive negative Urine Cocaine Screen Presumptive positive U Marijuana (THC) Screen Presumptive positive Drugs of Abuse Note Disclamer Plasma/Serum Alcohol 12/10/20 12/10/20 12/10/20 05:36 05:36 05:36 WBC RBC Hgb Hct MCV MCH MCHC RDW Plt Count Baso % (Auto) Add Manual Diff Total Counted Seg Neuts % (Manual) Lymphocytes % (Manual) Monocytes % (Manual) Eosinophils % (Manual) Nucleated RBC % Seg Neutrophils # Man Band Neutrophils # Lymphocytes # (Manual) Abs React Lymphs (Man) Monocytes # (Manual) Eosinophils # (Manual) Basophils # (Manual) Metamyelocytes # Myelocytes # Promyelocytes # Blast Cells # WBC Morphology Hypersegmented Neuts Hyposegmented Neuts Hypogranular Neuts Smudge Cells Toxic Granulation Toxic Vacuolation Dohle Bodies Pelger-Huet Anomaly Mirta Rods Platelet Estimate Clumped Platelets Plt Clumps, EDTA Large Platelets Giant Platelets Platelet Satelliting Plt Morphology Comment RBC Morphology Dimorphic RBCs Polychromasia Hypochromasia Poikilocytosis Anisocytosis Microcytosis Macrocytosis Spherocytes Pappenheimer Bodies Sickle Cells Target Cells Tear Drop Cells Ovalocytes Helmet Cells Luis-[place] Bodies [place] Rings [place] Cells Bite Cells Crenated Cell Elliptocytes Acanthocytes (Spur) Rouleaux Hemoglobin C Crystals Schistocytes Malaria parasites Ashvin Bodies Hem Pathologist Commnt Sodium 140 Potassium 4.2 Chloride 107.0 Carbon Dioxide 27 Anion Gap 10 BUN 15 Creatinine 0.8 Estimated GFR > 60 BUN/Creatinine Ratio 19 Glucose 89 Calcium 8.4 Total Bilirubin 0.20 AST 30 ALT 28 Alkaline Phosphatase 74 Total Creatine Kinase CK-MB (CK-2) CK-MB (CK-2) Rel Index Troponin T Total Protein 6.3 Albumin 3.8 L Albumin/Globulin Ratio 1.5 Urine Color Urine Turbidity Urine pH Ur Specific [place] Urine Protein Urine Glucose (UA) Urine Ketones Urine Blood Urine Nitrite Urine Bilirubin Urine Urobilinogen Ur Leukocyte Esterase Urine WBC (Auto) Urine RBC (Auto) Urine Bacteria (Auto) Urine Mucus Salicylates < 0.3 L Urine Opiates Screen Urine Methadone Screen Acetaminophen 5.0 L Ur Barbiturates Screen Ur Phencyclidine Scrn Ur Amphetamines Screen U Benzodiazepines Scrn Urine Cocaine Screen U Marijuana (THC) Screen Drugs of Abuse Note Plasma/Serum Alcohol 12/10/20 12/10/20 05:36 Unknown WBC RBC Hgb Hct MCV MCH MCHC RDW Plt Count Baso % (Auto) Add Manual Diff Total Counted Seg Neuts % (Manual) Lymphocytes % (Manual) Monocytes % (Manual) Eosinophils % (Manual) Nucleated RBC % Seg Neutrophils # Man Band Neutrophils # Lymphocytes # (Manual) Abs React Lymphs (Man) Monocytes # (Manual) Eosinophils # (Manual) Basophils # (Manual) Metamyelocytes # Myelocytes # Promyelocytes # Blast Cells # WBC Morphology Hypersegmented Neuts Hyposegmented Neuts Hypogranular Neuts Smudge Cells Toxic Granulation Toxic Vacuolation Dohle Bodies Pelger-Huet Anomaly Mirta Rods Platelet Estimate Clumped Platelets Plt Clumps, EDTA Large Platelets Giant Platelets Platelet Satelliting Plt Morphology Comment RBC Morphology Dimorphic RBCs Polychromasia Hypochromasia Poikilocytosis Anisocytosis Microcytosis Macrocytosis Spherocytes Pappenheimer Bodies Sickle Cells Target Cells Tear Drop Cells Ovalocytes Helmet Cells Luis-[place] Bodies [place] Rings [place] Cells Bite Cells Crenated Cell Elliptocytes Acanthocytes (Spur) Rouleaux Hemoglobin C Crystals Schistocytes Malaria parasites Ashvin Bodies Hem Pathologist Commnt Sodium Potassium Chloride Carbon Dioxide Anion Gap BUN Creatinine Estimated GFR BUN/Creatinine Ratio Glucose Calcium Total Bilirubin AST ALT Alkaline Phosphatase Total Creatine Kinase 152 CK-MB (CK-2) 4.9 H CK-MB (CK-2) Rel Index 3.2 Troponin T < 0.010 Total Protein Albumin Albumin/Globulin Ratio Urine Color Urine Turbidity Urine pH Ur Specific [place] Urine Protein Urine Glucose (UA) Urine Ketones Urine Blood Urine Nitrite Urine Bilirubin Urine Urobilinogen Ur Leukocyte Esterase Urine WBC (Auto) Urine RBC (Auto) Urine Bacteria (Auto) Urine Mucus Salicylates Urine Opiates Screen Urine Methadone Screen Acetaminophen Ur Barbiturates Screen Ur Phencyclidine Scrn Ur Amphetamines Screen U Benzodiazepines Scrn Urine Cocaine Screen U Marijuana (THC) Screen Drugs of Abuse Note Plasma/Serum Alcohol < 0.01 - EKG Data -: EKG Interpreted by Mt EKG shows normal: sinus rhythm Rate: tachycardia (105 beats per) - EKG Data When compared to previous EKG there are: previous EKG unavailable Interpretation: other (No ischemic changes seen) - Radiology Data Radiology results: report reviewed (CT head), image reviewed (CT head) [facility], [place] [address] [place] [address] Cat Scan Report Signed Patient: ARIELLE BARRAZA MR# : [id number] : 1985 Acct:[id number] Age/Sex: 35 / M ADM Date: 12/10/20 Loc: ED Atten ding Dr: Ordering Physician: WILTON CHAVEZ MD Date of Service: 12/10/20 Procedure(s): CT head/brain wo con Accession Number(s): [id number] cc: WILTON CHAVEZ MD CT HEAD WITHOUT CONTRAST INDICATION / CLINICAL INFORMATION: Heroin overdose, Found unresponsive. TECHNIQUE: Axial imaging performed from the skull apex through the skull base without the use of contrast. Sagittal and coronal reformatted images. All CT scans at this location are performed using CT dose reduction for ALARA by means of automated exposure control. COMPARISON: 06/18/2020 FINDINGS: CEREBRAL PARENCHYMA: No significant abnormality. No acute territorial infarct. HEMORRHAGE: None. EXTRA-AXIAL SPACES: Normal in size and morphology for the patient's age. VENTRICULAR SYSTEM: Normal in size and morphology for the patient's age. MIDLINE SHIFT OR HERNIATION: None. CEREBELLUM / BRAINSTEM: No significant abnormality. CALVARIUM: No significant abnormality. ORBITS: Normal as visualized. PARANASAL SINUSES / MASTOID AIR CELLS: Normal as visualized. SOFT TISSUES of HEAD: No significant abnormality. ADDITIONAL FINDINGS: None. IMPRESSION: No acute intracranial abnormality. No significant change since 06/10/2020. Signer Name: Emiliano Evans Jr, MD Signed: 12/10/2020 8:53 AM Workstation Name: [id number] Transcribed By: TTR Dictated By: EMILIANO EVANS JR, MD Electronically Authenticated By: EMILIANO EVANS JR, MD Signed Date/Time: 12/10/2053 DD/ 1 TD/TT: - Differential Diagnosis Heroin overdose Critical care attestation.: If time is entered above; I have spent that time in minutes in the direct care of this critically ill patient, excluding procedure time. ED Disposition Clinical Impression: Polysubstance abuse, Drug overdose, multiple drugs Disposition: DC-01 TO HOME OR SELFCARE Is pt being admited?: No Does the pt Need Aspirin: No Condition: Stable Instructions: Substance Use Disorder Additional Instructions: Return to the emergency department should you develop worsening symptoms, inability to tolerate food or liquids, high fever or any other concerns Referrals: PRIMARY CARE, [Primary Care Provider] - 3-5 Days Time of Disposition: 10:09
[2020-12-10 06:37] LABS: Creatine Kinase MB 4.9 ng/mL (0.0-4.0)
[2020-12-10 07:56] LABS: Platelet Estimate Consistent w Auto; RBC Morphology Normal; Total Cells Counted 100
--- NOTE | 2020-12-10 08:58 | Cat Scan Report ---
CT HEAD WITHOUT CONTRAST INDICATION / CLINICAL INFORMATION: Heroin overdose, Found unresponsive. TECHNIQUE: Axial imaging performed from the skull apex through the skull base without the use of cont rast. Sagittal and coronal reformatted images. All CT scans at this location are performed using CT dose reduction for ALARA by means of automated exposure control. COMPARISON: 06/18/2020 FINDINGS: CEREBRAL PARENCHYMA: No significant abnormality. No acute territorial infarct. HEMORRHAGE: None. EXTRA-AXIAL SPACES: Normal in size and morphology for the patient's age. VENTRICULAR SYSTEM: Normal in size and morphology for the patient's age. MIDLINE SHIFT OR HERNIATION: None. CEREBELLUM / BRAINSTEM: No significant abnormality. CALVARIUM: No significant abnormality. ORBITS: Normal as visualized. PARANASAL SINUSES / MASTOID AIR CELLS: Normal as visualized. SOFT TISSUES of HEAD: No significant abnormality. ADDITIONAL FINDINGS: None. IMPRESSION: No acute intracranial abnormality. No significant change since 06/10/2020. Signer Name: Emiliano Evans Jr, MD Signed: 12/10/2020 8:53 AM Workstation Name: [id number]
[2020-12-10 09:48] VITALS: BP 126/76
== END 2020-12-10 10:21 | disposition home or self-care (01) ==
LOC: ED 04:52
DX: T40.1X1A Poisoning by heroin, accidental (unintentional), initial encounter (principal); F19.10 Other psychoactive substance abuse, uncomplicated; F17.200 Nicotine dependence, unspecified, uncomplicated; F14.10 Cocaine abuse, uncomplicated; F12.10 Cannabis abuse, uncomplicated; Z79.899 Other long term (current) drug therapy
CPT/HCPCS: 36415; 70450; 80053; 80307; 81001; 82550; 82553; 84484; 85007; 85025; 93005; 96361; 96374; 99285; J2310; J7030; 80320; G0480

== ENCOUNTER 2020-12-10 13:29 | Emergency (ER) | payer SELFPAY ==
[2020-12-10] MEDS ORDERED: NALOXONE 2 MG/2 ML INJ IV ONE (14:30)
[2020-12-10] MEDS ORDERED: NALOXONE 0.4 MG/1 ML INJ IV ONE (14:36)
[2020-12-10 14:38] LABS: Alanine Aminotransferase 45 units/L (7-56); Albumin 3.5 g/dL (3.9-5); BUN/Creatinine Ratio 16; Blood Urea Nitrogen 13 mg/dL (9-20); Calcium 8.1 mg/dL (8.4-10.2); Hemolysis Index 4
[2020-12-10] MEDS ORDERED: NALOXONE 2 MG/2 ML INJ ONE (14:40)
[2020-12-10 14:44] LABS: Basophils # (Auto) 0.1 K/mm3 (0.0-0.1); Basophils % (Auto) 2.7 % (0.0-1.8); Eosinophils # (Auto) 0.1 K/mm3 (0.0-0.4); Eosinophils % (Auto) 1.3 % (0.0-4.3); Hematocrit 37.3 % (35.5-45.6); Lymphocytes # (Auto) 1.7 K/mm3 (1.2-5.4); Lymphocytes % (Auto) 31.8 % (13.4-35.0); Mean Corpuscular HGB Conc 32 % (32-34); Mean Corpuscular Volume 84 fl (84-94); Monocytes # (Auto) 0.6 K/mm3 (0.0-0.8); Monocytes % (Auto) 11.9 % (0.0-7.3); Platelet Count 243 K/mm3 (140-440); Red Blood Count 4.43 M/mm3 (3.65-5.03); Red Cell Distribution Width 14.2 % (13.2-15.2)
[2020-12-10 15:42] LABS: Benzodiazepines Screen,Urine Negative; Methadone Screen,Urine Negative; Opiate Screen,Urine Negative
[2020-12-10 15:48] LABS: Bilirubin,Urine NEG (Negative); Blood,Urine NEG (Negative); Color,Urine Yellow (Yellow); Mucus,Urine FEW /HPF; Urobilinogen,Urine < 2.0 mg/dL (<2.0)
[2020-12-10 15:55] LABS: Amphetamine Screen,Urine Positive; Cannabinoid Screen,Urine Positive; Cocaine Screen,Urine Positive
[2020-12-10] MEDS ORDERED: ONDANSETRON 4 MG/2 ML INJ IV ONE (20:33)
[2020-12-10] MEDS ORDERED: LORazepam 2 MG/ML VIAL IV PRN (20:33)
[2020-12-10] MEDS ORDERED: ONDANSETRON 4 MG/2 ML INJ IV PRN (20:35)
--- NOTE | 2020-12-10 20:40 | Emergency Department Report ---
History of Present Illness - General Chief Complaint: Overdose Stated Complaint: OVERDOSE Time Seen by Provider: 12/10/20 13:37 Source: EMS Mode of arrival: Stretcher Limitations: No Limitations - History of Present Illness Initial Comments: Chief complaint: Overdose This is a 35-year-old male with history of hypertension heroin dependence and methamphetamine abuse who presents with second heroin overdose today. Patient was discharged from this ER earlier this morning. Bystanders at a pending gas station called ambulance for heroin overdose. Patient injected heroin. He was unresponsive. Paramedics observed pinpoint pupils agonal respirations. Patient required 4 mg total to become aroused. Patient states that he did not want to . He did want to get high. He does admit that he "needs help". He denies auditory or visual hallucination. He denies suicidal homicidal ideation. He is homeless. Complaint: accidental overdose -: This morning How Overdose Was Discovered: family/friend present Context: Accidental Overdose: wanted to get high Treatments Prior to Arrival: narcan - Related Data Previous Rx's Medication Instructions Recorded Last Taken Type clonazePAM [KlonoPIN] 0.25 mg PO BID #30 tablet 06/22/20 Unknown Rx Allergies Allergy/AdvReac Type Severity Reaction Status Date / Time No Known Allergies Allergy Verified 12/10/20 13:46 ED Review of Systems ROS: Stated complaint: OVERDOSE Other details as noted in HPI Comment: All other systems reviewed and negative Constitutional: denies: fever, malaise Respiratory: denies: cough, shortness of breath Cardiovascular: denies: chest pain Psychiatric: denies: auditory hallucinations, visual hallucinations, homicidal thoughts, suicidal thoughts ED Past Medical Hx - Past Medical History Previous Medical History?: Yes Hx Hypertension: No Hx CVA: No Hx Heart Attack/AMI: No Hx Congestive Heart Failure: No Hx Diabetes: No Hx Deep Vein Thrombosis: No Hx Pulmonary Embolism: No Hx GERD: No Hx Liver Disease: No Hx Renal Disease: No Hx Sickle Cell Disease: No Hx Arthritis: No Hx Headaches / Migraines: No Hx Seizures: No Hx Kidney Stones: No Hx Psychiatric Treatment: Yes ([place] - 10/2013) Hx Asthma: No Hx COPD: No Hx Tuberculosis: No Hx Dementia: No Hx HIV: No Additional medical history: Methamphetamine abuse - Surgical History Hx Coronary Stent: No Hx Open Heart Surgery: No Hx Pacemaker: No Hx Internal Defibrillator: No Hx Cholecystectomy: No Hx Appendectomy: No Hx Breast Surgery: No - Social History Smoking Status: Current Every Day Smoker Substance Use Type: Heroin, Marijuana, Methamphetamines - Medications Home Medications: Home Medications Medication Instructions Recorded Confirmed Last Taken Type clonazePAM [KlonoPIN] 0.25 mg PO BID #30 tablet 06/22/20 12/10/20 Unknown Rx ED Physical Exam - General Limitations: No Limitations General appearance: alert, in no apparent distress, other (Disheveled looks much older than stated age dirty clothing) - Head Head exam: Present: atraumatic, normocephalic - Eye Eye exam: Present: normal appearance - ENT ENT exam: Present: mucous membranes moist - Neck Neck exam: Present: normal inspection, full ROM - Respiratory Respiratory exam: Present: normal lung sounds bilaterally. Absent: respiratory distress, wheezes, rales, rhonchi - Cardiovascular Cardiovascular Exam: Present: regular rate, normal rhythm, normal heart sounds. Absent: systolic murmur, diastolic murmur, rubs, gallop - GI/Abdominal GI/Abdominal exam: Present: soft, normal bowel sounds. Absent: distended, tenderness, guarding, rebound - Rectal Rectal exam: Present: deferred - Extremities Exam Extremities exam: Present: normal inspection - Back Exam Back exam: Present: normal inspection - Neurological Exam Neurological exam: Present: alert, oriented X3 - Psychiatric Psychiatric exam: Present: depressed, flat affect - Skin Skin exam: Present: warm, dry, intact, normal color. Absent: rash ED Course Vital Signs 12/10/20 12/10/20 12/10/20 13:42 13:47 14:06 Temperature 97.8 F Pulse Rate 111 H 92 H Respiratory 30 H 28 H 16 Rate Blood Pressure 183/96 Blood Pressure 146/113 [Left] O2 Sat by Pulse 96 100 Oximetry 12/10/20 12/10/20 12/10/20 14:48 15:30 16:04 Temperature Pulse Rate 117 H 103 H 103 H Respiratory 24 18 14 Rate Blood Pressure Blood Pressure 140/91 160/113 135/93 [Left] O2 Sat by Pulse 99 95 93 Oximetry 12/10/20 12/10/20 17:00 19:32 Temperature Pulse Rate 107 H 89 Respiratory 12 18 Rate Blood Pressure Blood Pressure 143/93 141/93 [Left] O2 Sat by Pulse 98 99 Oximetry ED Medical Decision Making - Lab Data Result diagrams: 12/10/20 13:44 12/10/20 13:44 Laboratory Results - last 24 hr 12/10/20 12/10/20 12/10/20 13:42 13:42 13:44 WBC 5.2 RBC 4.43 Hgb 12.0 Hct 37.3 MCV 84 MCH 27 L MCHC 32 RDW 14.2 Plt Count 243 Lymph % (Auto) 31.8 [place] % (Auto) 11.9 H Eos % (Auto) 1.3 Baso % (Auto) 2.7 H Lymph # (Auto) 1.7 [place] # (Auto) 0.6 Eos # (Auto) 0.1 Baso # (Auto) 0.1 Seg Neutrophils % 52.3 Seg Neutrophils # 2.7 Sodium Potassium Chloride Carbon Dioxide Anion Gap BUN Creatinine Estimated GFR BUN/Creatinine Ratio Glucose Calcium Total Bilirubin AST ALT Alkaline Phosphatase Total Protein Albumin Albumin/Globulin Ratio Urine Color Yellow Urine Turbidity Clear Urine pH 5.0 Ur Specific [place] 1.019 Urine Protein 30 mg/dl Urine Glucose (UA) Neg Urine Ketones Neg Urine Blood Neg Urine Nitrite Neg Urine Bilirubin Neg Urine Urobilinogen < 2.0 Ur Leukocyte Esterase Neg Urine WBC (Auto) 1.0 Urine RBC (Auto) 2.0 U Epithel Cells (Auto) < 1.0 Urine Mucus Few Salicylates Urine Opiates Screen Negative Urine Methadone Screen Negative Acetaminophen Ur Barbiturates Screen Negative Ur Phencyclidine Scrn Negative Ur Amphetamines Screen Positive U Benzodiazepines Scrn Negative Urine Cocaine Screen Positive U Marijuana (THC) Screen Positive Drugs of Abuse Note Disclamer Plasma/Serum Alcohol 12/10/20 12/10/20 12/10/20 13:44 13:44 13:44 WBC RBC Hgb Hct MCV MCH MCHC RDW Plt Count Lymph % (Auto) [place] % (Auto) Eos % (Auto) Baso % (Auto) Lymph # (Auto) [place] # (Auto) Eos # (Auto) Baso # (Auto) Seg Neutrophils % Seg Neutrophils # Sodium 136 L Potassium 4.1 Chloride 105.4 Carbon Dioxide 21 L Anion Gap 14 BUN 13 Creatinine 0.8 Estimated GFR > 60 BUN/Creatinine Ratio 16 Glucose 69 L Calcium 8.1 L Total Bilirubin 0.40 AST 57 H ALT 45 Alkaline Phosphatase 94 Total Protein 6.4 Albumin 3.5 L Albumin/Globulin Ratio 1.2 Urine Color Urine Turbidity Urine pH Ur Specific [place] Urine Protein Urine Glucose (UA) Urine Ketones Urine Blood Urine Nitrite Urine Bilirubin Urine Urobilinogen Ur Leukocyte Esterase Urine WBC (Auto) Urine RBC (Auto) U Epithel Cells (Auto) Urine Mucus Salicylates < 0.3 L Urine Opiates Screen Urine Methadone Screen Acetaminophen 5.0 L Ur Barbiturates Screen Ur Phencyclidine Scrn Ur Amphetamines Screen U Benzodiazepines Scrn Urine Cocaine Screen U Marijuana (THC) Screen Drugs of Abuse Note Plasma/Serum Alcohol 12/10/20 13:44 WBC RBC Hgb Hct MCV MCH MCHC RDW Plt Count Lymph % (Auto) [place] % (Auto) Eos % (Auto) Baso % (Auto) Lymph # (Auto) [place] # (Auto) Eos # (Auto) Baso # (Auto) Seg Neutrophils % Seg Neutrophils # Sodium Potassium Chloride Carbon Dioxide Anion Gap BUN Creatinine Estimated GFR BUN/Creatinine Ratio Glucose Calcium Total Bilirubin AST ALT Alkaline Phosphatase Total Protein Albumin Albumin/Globulin Ratio Urine Color Urine Turbidity Urine pH Ur Specific [place] Urine Protein Urine Glucose (UA) Urine Ketones Urine Blood Urine Nitrite Urine Bilirubin Urine Urobilinogen Ur Leukocyte Esterase Urine WBC (Auto) Urine RBC (Auto) U Epithel Cells (Auto) Urine Mucus Salicylates Urine Opiates Screen Urine Methadone Screen Acetaminophen Ur Barbiturates Screen Ur Phencyclidine Scrn Ur Amphetamines Screen U Benzodiazepines Scrn Urine Cocaine Screen U Marijuana (THC) Screen Drugs of Abuse Note Plasma/Serum Alcohol < 0.01 - Medical Decision Making Accidental heroin overdose: Patient admits that "I need help". Patient placed on involuntary hold with 2013 form. It is of great concern that patient is dangerous to himself. He has been close to on 2 occasions today with 2 ED visits via EMS transport requiring naloxone. Patient was observed in the emergency department for 7 hours without recurrence of respiratory depression. After a period of observation patient states that he has withdrawal symptoms. His vital signs are normal with heart rate 89 respiratory rate 18 blood pressure 141/93. I have ordered scheduled doses of clonidine. I have ordered as needed Ativan and Zofran. Awaiting transfer to rehabilitation facility. Patient is medically clear for psychiatric care. I have reviewed labs, CBC within normal limits chemistry mildly elevated AST nonspecific patient will need outpatient hepatitis evaluation urinalysis within normal limits. Serum ASA, acetaminophen and alcohol within normal limits. UDS positive for amphetamines, cocaine, marijuana Critical care attestation.: If time is entered above; I have spent that time in minutes in the direct care of this critically ill patient, excluding procedure time. ED Disposition Clinical Impression: Accidental heroin overdose, Polysubstance abuse Disposition: DC/TX-70 ANOTHER TYPE HLTHCARE Is pt being admited?: Yes Does the pt Need Aspirin: No Condition: Stable
[2020-12-10] MEDS ORDERED: cloNIDine 0.1 MG TAB PO SCH (22:00)
--- NOTE | 2020-12-11 08:24 | Consultation ---
History of Present Illness - Reason for Consult Consult date: 12/11/20 Reason for consult: MHE Requesting physician: SHERIF PARK - History of Present Psychiatric Illness Per ED Provider: This is a 35-year-old male with history of hypertension heroin dependence and methamphetamine abuse who presents with second heroin overdose today. Patient was discharged from this ER earlier this morning. Bystanders at a pending gas station called ambulance for heroin overdose. Patient injected heroin. He was unresponsive. Paramedics observed pinpoint pupils agonal respirations. Patient required 4 mg total to become aroused. Patient states that he did not want to . He did want to get high. He does admit that he "needs help". He denies auditory or visual hallucination. He denies suicidal homicidal ideation. He is homeless. Psych HPI Patient is a 35-year-old single, unemployed and homeless male with past psychiatric history of heroin use who is well known to me from prior encounter at this facility, presented to the ED by EMS for heroin overdose. Patient denies any suicidal intention, states he uses heroine and overdose was accidental and he is now having withdrawal and seeking medications. PAST PSYCHIATRIC HISTORY: Diagnoses: Denies Suicide attempts or Self-harm behavior: Denies Prior psychiatric hospitalizations: Denies Substance Abuse history: Heroine, cocaine Previous psychiatric medications tried: "wellbutrin" Outpatient treatment: No PAST MEDICAL HISTORY: None reported Family Psychiatric History: None reported or documented SOCIAL HISTORY Marital Status: Living Arrangements: With spouse Employment Status: Unemployed Access to guns/weapons: Denies Education: HS grad History of Abuse: Denies Legal History: Denies MSE Appearance: Wearing appropriate clothing. Behavior: agitated, anxious Mood: "fine" Affect: Restricted Thought Process: Goal directed Speech: increased tone, normal pace Thought Content Suicidal: Denies Homicidal: Denies Hallucinations: Auditory Delusions: none elicited Consciousness: alert. Cognition/Memory: Limited Insight/Judgment: Impaired Treatment Plan Patient states he is having heroin withdrawal. Informed patient this facility does not treat early withdrawal I would let his ED provider know so they can determine appropriate treatment actions. MEDICATIONS: Risks, benefits and alternatives of medications discussed with the patient, questions answered and consent obtained from patient. PSYCHOTHERAPY: Supportive psychotherapy provided MEDICAL: Per primary team DELIRIUM PRECAUTIONS: Please re-orient patient frequently, keep lights on during the day, and minimize benzodiazepines and opiates as these medications could worsen patient's confusion. CONVEYOR TECHNICIAN: DISPOSITION: Do Not Recommend acute inpatient psychiatric hospitalization at this time. Case discussed with Dr. Junior who agrees with current disposition LEGAL STATUS: 1013 rescinded FOLLOW-UP: Will sign off Thank you for the consult. Please contact with any questions and/or concerns. Medications and Allergies Allergies Allergy/AdvReac Type Severity Reaction Status Date / Time No Known Allergies Allergy Verified 12/10/20 13:46 Home Medications Medication Instructions Recorded Confirmed Last Taken Type clonazePAM [KlonoPIN] 0.25 mg PO BID #30 tablet 06/22/20 12/10/20 Unknown Rx Active Meds: Active Medications Clonidine HCl (Clonidine 0.1 Mg Tab) 0.1 mg PO Q12HR LILIAN Last Admin: 12/10/20 21:46 Dose: 0.1 mg Documented by: Lorazepam (Lorazepam 2 Mg/Ml Vial) 1 mg IV Q4H PRN PRN Reason: agitation, withdrawal Last Admin: 12/10/20 20:46 Dose: 1 mg Documented by: Ondansetron HCl (Ondansetron 4 Mg/2 Ml Inj) 4 mg IV Q6H PRN PRN Reason: nausea/vomiting Mental Status Exam - Vital signs Last Vital Signs Temp 97.8 F 12/10/20 13:42 Pulse 89 12/10/20 19:32 Resp 18 12/10/20 19:32 BP 141/93 12/10/20 19:32 Pulse Ox 99 12/10/20 19:32 Results Result Diagrams: 12/10/20 13:44 12/10/20 13:44 Abnormal lab results 12/10/20 12/10/20 12/10/20 Range/Units 13:44 13:44 13:44 MCH 27 L (28-32) pg [place] % (Auto) 11.9 H (0.0-7.3) % Baso % (Auto) 2.7 H (0.0-1.8) % Sodium 136 L (137-145) mmol/L Carbon Dioxide 21 L (22-30) mmol/L Glucose 69 L (75-100) mg/dL Calcium 8.1 L (8.4-10.2) mg/dL AST 57 H (5-40) units/L Albumin 3.5 L (3.9-5) g/dL Salicylates < 0.3 L (2.8-20.0) mg/dL Acetaminophen (10.0-30.0) ug/mL 12/10/20 Range/Units 13:44 MCH (28-32) pg [place] % (Auto) (0.0-7.3) % Baso % (Auto) (0.0-1.8) % Sodium (137-145) mmol/L Carbon Dioxide (22-30) mmol/L Glucose (75-100) mg/dL Calcium (8.4-10.2) mg/dL AST (5-40) units/L Albumin (3.9-5) g/dL Salicylates (2.8-20.0) mg/dL Acetaminophen 5.0 L (10.0-30.0) ug/mL All other labs normal.
[2020-12-11 09:02] VITALS: BP 133/87
== END 2020-12-11 10:00 | disposition home or self-care (01) ==
LOC: ED 13:29
DX: T40.1X1A Poisoning by heroin, accidental (unintentional), initial encounter (principal); F19.10 Other psychoactive substance abuse, uncomplicated; F17.200 Nicotine dependence, unspecified, uncomplicated; F12.10 Cannabis abuse, uncomplicated; Z79.899 Other long term (current) drug therapy; Y92.89 Other specified places as the place of occurrence of the external cause
CPT/HCPCS: 36415; 80048; 80053; 80307; 81001; 85025; 96374; 96375; 99285; J2060; J2310; J2405; 80320; G0480

== ENCOUNTER 2021-12-29 20:40 | Emergency (ER) | payer SELFPAY ==
[2021-12-29 21:46] LABS: Blood Urea Nitrogen 15 mg/dL (9-20); Calcium 9.4 mg/dL (8.4-10.2); Hemolysis Index 15
[2021-12-29 21:50] LABS: Basophils # (Auto) 0.1 K/mm3 (0.0-0.1); Basophils % (Auto) 0.6 % (0.0-1.8); Eosinophils # (Auto) 0.1 K/mm3 (0.0-0.4); Eosinophils % (Auto) 1.1 % (0.0-4.3); Hematocrit 38.2 % (35.5-45.6); Hemoglobin 13.2 gm/dl (11.8-15.2); Lymphocytes # (Auto) 0.9 K/mm3 (1.2-5.4); Lymphocytes % (Auto) 9.9 % (13.4-35.0); Mean Corpuscular HGB Conc 35 % (32-34); Mean Corpuscular Volume 87 fl (84-94); Monocytes % (Auto) 11.4 % (0.0-7.3); Platelet Count 341 K/mm3 (140-440); Red Blood Count 4.39 M/mm3 (3.65-5.03); Red Cell Distribution Width 12.8 % (13.2-15.2)
[2021-12-29 21:52] LABS: BUN/Creatinine Ratio 21
[2021-12-29] MEDS ORDERED: POTASSIUM CHLORIDE ER 20 MEQ TAB PO ONE (22:15)
--- NOTE | 2021-12-29 23:27 | Emergency Department Report ---
<HENRIETTA QUINTERO - Last Filed: 12/29/21 23:43> History of Present Illness - General Chief Complaint: Overdose Stated Complaint: DRUG OD Time Seen by Provider: 12/29/21 20:49 Source: patient Mode of arrival: Stretcher Limitations: No Limitations - History of Present Illness Initial Comments: 36-year-old male with a history of methamphetamine abuse and heroin abuse presents to the hospital with heroin overdose. [place] alert with decreased respirations and responsiveness. Provided Narcan 3 or 4 mg IV with improvement in mental status. Patient is drowsy but arouses to mild tactile stimulation and answers questions. He admits injecting heroin and denies other substance use at this time - Related Data Previous Rx's Medication Instructions Recorded Last Taken Type Naloxone HCl [Narcan Nasal [place]] 4 mg NS PRN PRN #1 spray 12/30/21 Unknown Rx Allergies Allergy/AdvReac Type Severity Reaction Status Date / Time No Known Allergies Allergy Verified 12/10/20 13:46 ED Review of Systems Comment: All other systems reviewed and negative ED Past Medical Hx - Past Medical History Previous Medical History?: Yes Hx Hypertension: No Hx CVA: No Hx Heart Attack/AMI: No Hx Congestive Heart Failure: No Hx Diabetes: No Hx Deep Vein Thrombosis: No Hx Pulmonary Embolism: No Hx GERD: No Hx Liver Disease: No Hx Renal Disease: No Hx Sickle Cell Disease: No Hx Arthritis: No Hx Headaches / Migraines: No Hx Seizures: No Hx Kidney Stones: No Hx Psychiatric Treatment: Yes ([place] 10/2013) Hx Asthma: No Hx COPD: No Hx Tuberculosis: No Hx Dementia: No Hx HIV: No Additional medical history: Methamphetamine abuse - Surgical History Past Surgical History?: No Hx Coronary Stent: No Hx Open Heart Surgery: No Hx Pacemaker: No Hx Internal Defibrillator: No Hx Cholecystectomy: No Hx Appendectomy: No Hx Breast Surgery: No - Social History Smoking Status: Current Every Day Smoker Substance Use Type: Heroin - Medications Home Medications: Home Medications Medication Instructions Recorded Confirmed Last Taken Type Naloxone HCl [Narcan Nasal [place]] 4 mg NS PRN PRN #1 spray 12/30/21 Unknown Rx ED Physical Exam - General Limitations: No Limitations - Other Other exam information: General: No acute distress Head: Atraumatic Eyes: normal appearance ENT: Moist mucous membranes, skin abrasion to Neck: Normal appearance, no midline tenderness Chest: Clear to auscultation bilaterally CV: Regular rate and rhythm Abdomen: Soft, normal bowel sounds, nontender, nondistended, no rebound or guarding Back: Normal inspection Extremity: Normal inspection, full range of motion Neuro: Drowsy but arousable, no facial asymmetry, speech clear, no gross motor sensory deficit Psych: Appropriate behavior ED Medical Decision Making - Lab Data Result diagrams: 12/29/21 21:07 12/29/21 21:07 Lab Results 12/29/21 12/29/21 12/29/21 Range/Units 21:07 21:07 21:07 WBC 9.0 (4.5-11.0) K/mm3 RBC 4.39 (3.65-5.03) M/mm3 Hgb 13.2 (11.8-15.2) gm/dl Hct 38.2 (35.5-45.6) % MCV 87 (84-94) fl MCH 30 (28-32) pg MCHC 35 H (32-34) % RDW 12.8 L (13.2-15.2) % Plt Count 341 (140-440) K/mm3 Lymph % (Auto) 9.9 L (13.4-35.0) % [place] % (Auto) 11.4 H (0.0-7.3) % Eos % (Auto) 1.1 (0.0-4.3) % Baso % (Auto) 0.6 (0.0-1.8) % Lymph # (Auto) 0.9 L (1.2-5.4) K/mm3 [place] # (Auto) 1.0 H (0.0-0.8) K/mm3 Eos # (Auto) 0.1 (0.0-0.4) K/mm3 Baso # (Auto) 0.1 (0.0-0.1) K/mm3 Seg Neutrophils % 77.0 H (40.0-70.0) % Seg Neutrophils # 6.9 (1.8-7.7) K/mm3 Sodium 137 (137-145) mmol/L Potassium 3.1 L (3.6-5.0) mmol/L Chloride 97.0 L (98-107) mmol/L Carbon Dioxide 25 (22-30) mmol/L Anion Gap 18 mmol/L BUN 15 (9-20) mg/dL Creatinine 0.7 L (0.8-1.3) mg/dL Estimated GFR > 60 ml/min BUN/Creatinine Ratio 21 % Glucose 122 H (75-100) mg/dL Calcium 9.4 (8.4-10.2) mg/dL Plasma/Serum Alcohol < 0.01 (0-0.07) % - EKG Data -: EKG Interpreted by Me EKG shows normal: sinus rhythm, intervals (QTC 455), ST-T waves (No STEMI) Rate: normal (85) - Medical Decision Making 36-year-old male presents to the hospital status post heroin dose. Patient responded to Narcan and admits to heroin abuse. Labs revealed mild hypokalemia. Patient observed on firer automatic stoker. Given that patient was found and is intoxicated a CT head and cervical spine has been ordered. My colleague Dr. Tapia to follow-up on imaging results and his blood pressure once alert. PRN Narcan orders placed ED Disposition Clinical Impression: Heroin overdose Disposition: HOME / SELF CARE / HOMELESS Is pt being admited?: No Does the pt Need Aspirin: No Condition: Good Instructions: Opioid Overdose Additional Instructions: Please avoid consumption of alcohol, tobacco, smoke products and heroin. Drug abuse may lead to , disability, paralysis, and loss of quality of life. F ollow-up with outpatient substance abuse programs as soon as possible. Follow- up with your primary care doctor within the next month. Do not drive, operate motor vehicles or operate heavy machinery until cleared to do so by a primary care doctor. Please return to the emergency room right away with new pain, worsened pain, migration of pain, projectile vomiting, change in mental status, confusion, inability tolerate liquid feeds, new, worsened or different symptoms not present on the initial emergency room evaluation SUBSTANCE ABUSE PROGRAMS: So[facility]: Location: [place], [place] [employer] Address: [address] [place] [id number] [facility]: Address: [address] [place] [address] [facility]: Address: [address] [place] [address] [facility]: Address: [address] [place] [address] Referrals: [facility] [Provider Group] - 3-5 Days <LEEANN TAPIA - Last Filed: 12/30/21 05:04> ED Review of Systems ROS: Stated complaint: DRUG OD Other details as noted in HPI ED Course Vital Signs 12/29/21 20:43 Temperature 98.6 F Pulse Rate 99 H Respiratory 18 Rate Blood Pressure 148/80 O2 Sat by Pulse 94 Oximetry - Reevaluation(s) Reevaluation #1: 12/30/21 01:[address] scan brain and cervical spine negative for acute findings. Resting comfortably in stretcher. No acute distress. Still somewhat sleepy. Breathing spontaneously protecting airway. Observe pending clinical sobriety 12/30/21 05:02 Patient reassessed multiple times by myself. He is awake, alert, oriented, and sober at this time. He is not homicidal or suicidal. He denies physical pain at this time. He states he can have a friend come by and pick him up. Patient observed in this ER for approximately 9 hours. He is clinically improved. ED Medical Decision Making - Lab Data Result diagrams: 12/29/21 21:07 12/29/21 21:07 - EKG Data 12/30/21 01:40 EKG interpreted at 01: 4 0 Sinus rhythm, 85 bpm. Normal axis, normal P wave axis, high left ventricular voltage, QTC 4 5 5 ms. Abnormal EKG. Not a STEMI peer - Radiology Data Radiology results: pending, report reviewed, image reviewed CT CERVICAL SPINE WITHOUT CONTRAST INDICATION / CLINICAL INFORMATION: Altered Mental Status, Heroin overdose. TECHNIQUE: Axial CT images were obtained through the cervical spine. Sagittal and coronal reformatted images were produced. All CT scans at this location are performed using CT dose reduction for ALARA by means of automated exposure control. COMPARISON: CT head same date FINDINGS: SKULL BASE: No significant abnormality of the skull base. CRANIOCERVICAL JUNCTION: No significant abnormality of the craniocervical junction. ALIGNMENT: No significant abnormality of alignment. VERTEBRAL BODIES: Vertebral body heights fairly uniform throughout. DISK SPACES: Mild to moderate narrowing of intervertebral disc space at C5-6 and C6-7. FACET JOINTS: No significant abnormality of facet articulations. STENOSIS BY LEVEL: None. CENTRAL CANAL: No significant central stenosis. SOFT TISSUES: No significant abnormality of soft tissues or musculature. THYROID: No significant abnormality. UPPER CHEST: No significant abnormality of the visualized chest. ADDITIONAL FINDINGS: None. IMPRESSION: 1. No acute cervical spine injury. No significant degenerative changes. Signer Name: Isaías Crain II, MD Signed: 12/29/2021 11:54 PM Workstation Name: [id number] CT HEAD WITHOUT CONTRAST INDICATION / CLINICAL INFORMATION: Altered Mental Status, Heroin overdose. TECHNIQUE: CT head was performed without administration of intravenous contrast. All CT scans at this location are performed using CT dose reduction for ALARA by means of automated exposure control. COMPARISON: CT head 12/10/2020 FINDINGS: CEREBRAL PARENCHYMA: No significant abnormality. No acute territorial infarct. HEMORRHAGE: None. EXTRA- AXIAL SPACES: Normal in size and morphology for the patient's age. VENTRICULAR SYSTEM: Normal in size and morphology for the patient's age. MIDLINE SHIFT / HERNIATION: None. CEREBELLUM / BRAINSTEM: No significant abnormality. ORBITS: Normal as visualized. SOFT TISSUES: No significant abnormality. SKULL: No significant abnormality. PARANASAL SINUSES / MASTOID AIR CELLS: Stable chronic deformity of the nasal septum and nasal bones. ADDITIONAL FINDINGS: None. IMPRESSION: 1. No acute intracranial abnormality. Signer Name: Isaías Crain II, MD Signed: 12/29/2021 11:53 PM Workstation Name: [id number] Critical care attestation.: If time is entered above; I have spent that time in minutes in the direct care of this critically ill patient, excluding procedure time. ED Disposition Is pt being admited?: No Does the pt Need Aspirin: No
[2021-12-29] MEDS ORDERED: NALOXONE 0.4 MG/1 ML INJ IV PRN ×2 (23:48→23:49)
--- NOTE | 2021-12-30 00:57 | Cat Scan Report ---
CT HEAD WITHOUT CONTRAST INDICATION / CLINICAL INFORMATION: Altered Mental Status, Heroin overdose. TECHNIQUE: CT head was performed without administration of intravenous contrast. All CT scans at this location are performed using CT dose reduction for ALARA by means of automated exposure control. COMPARISON: CT head 12/10/2020 FINDINGS: CEREBRAL PARENCHYMA: No significant abnormality. No acute territorial infarct. HEMORRHAGE: None. EXTRA-AXIAL SPACES: Normal in size and morphology for the patient's age. VENTRICULAR SYSTEM: Normal in size and morphology for the patient's age. MIDLINE SHIFT / HERNIATION: None. CEREBELLUM / BRAINSTEM: No significant abnormality. ORBITS: Normal as visualized. SOFT TISSUES: No significant abnormality. SKULL: No significant abnormality. PARANASAL SINUSES / MASTOID AIR CELLS: Stable chronic deformity of the nasal septum and nasal bones. ADDITIONAL FINDINGS: None. IMPRESSION: 1. No acute intracranial abnormality. Signer Name: Isaías Crain II, MD Signed: 12/30/2021 12:53 AM Workstation Name: [id number]
--- NOTE | 2021-12-30 00:59 | Cat Scan Report ---
CT CERVICAL SPINE WITHOUT CONTRAST INDICATION / CLINICAL INFORMATION: Altered Mental Status, Heroin overdose. TECHNIQUE: Axial CT images were obtained through the cervical spine. Sagittal and coronal reformatted images were produced. All CT scans at this location are performed using CT dose reduction for ALARA by means of automated exposure control. COMPARISON: CT head same date FINDINGS: SKULL BASE: No significant abnormality of the skull base. CRANIOCERVICAL JUNCTION: No significant abnormality of the craniocervical junction. ALIGNMENT: No significant abnormality of alignment. VERTEBRAL BODIES: Vertebral body heights fairly uniform throughout. DISK SPACES: Mild to moderate narrowing of intervertebral disc space at C5-6 and C6-7. FACET JOINTS: No significant abnormality of facet articulations. STENOSIS BY LEVEL: None. CENTRAL CANAL: No significant central stenosis. SOFT TISSUES: No significant abnormality of soft tissues or musculature. THYROID: No significant abnormality. UPPER CHEST: No significant abnormality of the visualized chest. ADDITIONAL FINDINGS: None. IMPRESSION: 1. No acute cervical spine injury. No significant degenerative changes. Signer Name: Isaías Crain II, MD Signed: 12/30/2021 12:54 AM Workstation Name: [id number]
[2021-12-30 06:00] VITALS: BP 140/91
--- NOTE | 2021-12-30 09:21 | Electrocardiograph Report ---
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
== END 2021-12-30 06:00 | disposition home or self-care (01) ==
LOC: ED 20:40
DX: T40.1X1A Poisoning by heroin, accidental (unintentional), initial encounter (principal); F17.200 Nicotine dependence, unspecified, uncomplicated; Y92.89 Other specified places as the place of occurrence of the external cause
CPT/HCPCS: 36415; 70450; 72125; 80048; 80320; 85025; 93005; 99284; G0480

== ENCOUNTER 2022-01-14 14:49 | Emergency (ER) | payer SELFPAY ==
[2022-01-14] MEDS ORDERED: NALOXONE 2 MG/2 ML INJ IV ONE (15:11)
[2022-01-14] MEDS ORDERED: SODIUM CHLORIDE 0.9% 1000 ML 1,000 ML IV ONE (15:11)
--- NOTE | 2022-01-14 15:42 | XRay Report ---
CHEST 1 VIEW 01/14/2022 3:21 PM INDICATION / CLINICAL INFORMATION: Altered Mental Status. COMPARISON: 06/19/2020 FINDINGS: SUPPORT DEVICES: None. HEART / MEDIASTINUM: No significant abnormality. LUNGS / PLEURA: Mild lower lobe atelectasis No pneumothorax. ADDITIONAL FINDINGS: No significant additional findings. IMPRESSION: 1. Mild lower lobe atelectasis Signer Name: Emre Leyva MD Signed: 01/14/2022 3:37 PM Workstation Name: [id number]
[2022-01-14 16:07] LABS: Basophils # (Auto) 0.1 K/mm3 (0.0-0.1); Basophils % (Auto) 0.5 % (0.0-1.8); Eosinophils % (Auto) 0.1 % (0.0-4.3); Lymphocytes # (Auto) 0.9 K/mm3 (1.2-5.4); Monocytes # (Auto) 0.8 K/mm3 (0.0-0.8); Monocytes % (Auto) 5.1 % (0.0-7.3)
[2022-01-14 16:22] LABS: Hematocrit 47.3 % (35.5-45.6); Hemoglobin 15.2 gm/dl (11.8-15.2); Mean Corpuscular HGB Conc 32 % (32-34); Mean Corpuscular Volume 88 fl (84-94); Platelet Count 469 K/mm3 (140-440); Red Blood Count 5.37 M/mm3 (3.65-5.03); Red Cell Distribution Width 13.1 % (13.2-15.2)
[2022-01-14 16:25] LABS: Alanine Aminotransferase 44 units/L (7-56); Albumin 3.6 g/dL (3.9-5); BUN/Creatinine Ratio 9; Blood Urea Nitrogen 8 mg/dL (9-20); Calcium 9.7 mg/dL (8.4-10.2); Hemolysis Index 76
[2022-01-14 18:08] LABS: Amphetamine Screen,Urine PRESUMPTIVE POSITIVE; Benzodiazepines Screen,Urine PRESUMPTIVE NEGATIVE; Cannabinoid Screen,Urine PRESUMPTIVE POSITIVE; Cocaine Screen,Urine PRESUMPTIVE NEGATIVE; Methadone Screen,Urine PRESUMPTIVE NEGATIVE; Opiate Screen,Urine PRESUMPTIVE POSITIVE
[2022-01-14 18:13] LABS: Bilirubin,Urine NEG (Negative); Blood,Urine NEG (Negative); Color,Urine Yellow (Yellow); Mucus,Urine 2+ /HPF; Sperm,Urine 3+ /HPF (NP)
--- NOTE | 2022-01-14 18:39 | Emergency Department Report ---
History of Present Illness - General Chief Complaint: Overdose Stated Complaint: OVER DOSE HEROINE Time Seen by Provider: 01/14/22 15:11 Source: EMS Mode of arrival: Stretcher Limitations: Altered Mental Status - History of Present Illness Initial Comments: pt was brought in by EMS , family called EMS for possible overdose this morniing , pt is abusing drugs meth and heroin, he denes any SI , just wanted to get high , history of the same dnoes any SI or HI or chets pain or SOB MD Complaint: accidental overdose -: Gradual, hour(s) Intent: other (wanted tog et high ) Context: Intentional Overdose: drug/ETOH problems Context: Accidental Overdose: wanted to get high Associated Symptoms: palpitations Treatments Prior to Arrival: oxygen, narcan, IV fluids - Related Data Previous Rx's Medication Instructions Recorded Last Taken Type Naloxone HCl [Narcan Nasal [place]] 4 mg NS PRN PRN #1 spray 12/30/21 Unknown Rx Allergies Allergy/AdvReac Type Severity Reaction Status Date / Time No Known Allergies Allergy Verified 01/14/22 15:15 ED Review of Systems ROS: Stated complaint: OVER DOSE HEROINE Other details as noted in HPI Constitutional: denies: chills, fever Eyes: denies: eye pain, eye discharge, vision change ENT: denies: ear pain, throat pain Respiratory: denies: cough, shortness of breath, wheezing Cardiovascular: denies: chest pain, palpitations Endocrine: no symptoms reported Gastrointestinal: denies: abdominal pain, nausea, diarrhea Genitourinary: denies: urgency, dysuria Musculoskeletal: denies: back pain, joint swelling, arthralgia Skin: denies: rash, lesions Neurological: denies: headache, weakness, paresthesias Psychiatric: denies: anxiety, depression Hematological/Lymphatic: denies: easy bleeding, easy bruising ED Past Medical Hx - Past Medical History Hx Hypertension: No Hx CVA: No Hx Heart Attack/AMI: No Hx Congestive Heart Failure: No Hx Diabetes: No Hx Deep Vein Thrombosis: No Hx Pulmonary Embolism: No Hx GERD: No Hx Liver Disease: Yes Hx Renal Disease: Yes Hx Sickle Cell Disease: No Hx Arthritis: No Hx Headaches / Migraines: No Hx Seizures: No Hx Kidney Stones: No Hx Psychiatric Treatment: Yes ([place] 10/2013) Hx Asthma: No Hx COPD: No Hx Tuberculosis: No Hx Dementia: No Hx HIV: No Additional medical history: Methamphetamine abuse - Surgical History Hx Coronary Stent: No Hx Open Heart Surgery: No Hx Pacemaker: No Hx Internal Defibrillator: No Hx Cholecystectomy: No Hx Appendectomy: No Hx Breast Surgery: No - Social History Smoking Status: Current Every Day Smoker Substance Use Type: Alcohol, Heroin, Marijuana, Methamphetamines - Medications Home Medications: Home Medications Medication Instructions Recorded Confirmed Last Taken Type Naloxone HCl [Narcan Nasal [place]] 4 mg NS PRN PRN #1 spray 12/30/21 Unknown Rx ED Physical Exam - General Limitations: Altered Mental Status General appearance: alert, anxious - Head Head exam: Present: atraumatic, normocephalic - Eye Eye exam: Present: normal appearance - ENT ENT exam: Present: mucous membranes moist - Neck Neck exam: Present: normal inspection - Respiratory Respiratory exam: Present: normal lung sounds bilaterally. Absent: respiratory distress - Cardiovascular Cardiovascular Exam: Present: regular rate, normal rhythm. Absent: systolic murmur, diastolic murmur, rubs, gallop - GI/Abdominal GI/Abdominal exam: Present: soft, normal bowel sounds - Rectal Rectal exam: Present: deferred - Extremities Exam Extremities exam: Present: normal inspection - Back Exam Back exam: Present: normal inspection - Neurological Exam Neurological exam: Present: alert, oriented X3 - Psychiatric Psychiatric exam: Present: anxious. Absent: depressed, homicidal ideation, suicidal ideation - Skin Skin exam: Present: warm, dry, intact, normal color. Absent: rash ED Course Vital Signs 01/14/22 01/14/22 01/14/22 15:01 15:11 15:16 Pulse Rate 99 H Respiratory 16 Rate Blood Pressure 150/103 Blood Pressure 156/103 [Right] O2 Sat by Pulse 98 98 95 Oximetry 01/14/22 01/14/22 01/14/22 15:30 15:46 16:00 Pulse Rate Respiratory Rate Blood Pressure 150/103 150/103 131/86 Blood Pressure [Right] O2 Sat by Pulse 95 97 96 Oximetry 01/14/22 01/14/22 16:16 16:30 Pulse Rate 82 85 Respiratory 7 L 6 L Rate Blood Pressure 131/86 131/86 Blood Pressure [Right] O2 Sat by Pulse 99 91 Oximetry ED Medical Decision Making - Lab Data Result diagrams: 01/14/22 15:15 01/14/22 15:15 - EKG Data EKG shows normal: sinus rhythm Rate: tachycardia - EKG Data When compared to previous EKG there are: no significant change - Radiology Data Radiology results: report reviewed, image reviewed - Medical Decision Making work up unremarkabl e, pt is awake and alert , fluids given , no SI or HI , UDS noted , pt denies any self harming behaviour wanted to get high Critical care attestation.: If time is entered above; I have spent that time in minutes in the direct care of this critically ill patient, excluding procedure time. ED Disposition Clinical Impression: Heroin overdose, Polysubstance abuse, Methamphetamine use Disposition: 01 HOME / SELF CARE / HOMELESS Is pt being admited?: No Does the pt Need Aspirin: No Condition: Stable Instructions: Amphetamines Use Disorder, Substance Use Disorder, Methamphetamines Use Disorder
[2022-01-14 18:52] VITALS: BP 133/102
--- NOTE | 2022-01-15 09:35 | Electrocardiograph Report ---
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
== END 2022-01-14 19:13 | disposition home or self-care (01) ==
LOC: ED 14:49
DX: T40.1X1A Poisoning by heroin, accidental (unintentional), initial encounter (principal); F19.10 Other psychoactive substance abuse, uncomplicated; F15.90 Other stimulant use, unspecified, uncomplicated; F17.200 Nicotine dependence, unspecified, uncomplicated; F11.90 Opioid use, unspecified, uncomplicated; F12.90 Cannabis use, unspecified, uncomplicated; Z72.89 Other problems related to lifestyle; Z79.899 Other long term (current) drug therapy; Y92.89 Other specified places as the place of occurrence of the external cause
CPT/HCPCS: 36415; 71045; 80053; 80307; 81001; 82140; 82550; 84484; 85025; 93005; 96360; 99284; J2310; J7030; 80320; Q0162; G0480